=== PATIENT | female | born 1955 ===

== ENCOUNTER 2020-06-29 15:19 | Emergency (ER) | payer OTHER, SELFPAY ==
--- NOTE | ~2020-06-29 | XR_ITS ---
EXAMINATION: XR CHEST CLINICAL INFORMATION: Shortness of breath COMPARISON: None TECHNIQUE: 2 views of the chest were obtained. FINDINGS: The cardiomediastinal silhouette is normal. No abnormal tracheal deviation. The lungs are mildly hypoexpanded. The lungs are clear. No evidence of pneumothorax or pleural effusions. Surgical anchor is noted projecting over the right humeral head. No acute osseous abnormality. Changes of diffuse idiopathic skeletal hyperostosis in the spine. Visualized upper abdomen is unremarkable. XR/XR chest 2V IMPRESSION: No radiographic evidence of pneumonia. No acute pulmonary process.
--- NOTE | 2020-06-29 16:23 | ED_ITS ---
HPI - SOB/Dyspnea General Chief Complaint: Dyspnea Stated Complaint: SOB Time Seen by Provider: 06/29/20 16:23 Source: patient Mode of arrival: ambulatory Limitations: no limitations History of Present Illness HPI Narrative: shortness of breath for one month., NO sick contacts, no fever. patient denies seasonal allergies. There at times she has chest discomfort only when she goes to bed. High cholesterol, no doctor as she has not gotten a doctor. MD elicited complaint: shortness of breath Onset (ago): month(s) Related Data Allergies Allergy/AdvReac Type Severity Reaction Status Date / Time No Known Allergies Allergy Verified 06/29/20 16:52 Review of Systems Constitutional: Constitutional: Reports no additional constitutional complaints Eyes: Eyes: Reports no additional eye complaints ENT: Denies dizziness Cardiovascular: Cardiovascular: Reports no additional cardiovascular complaints Respiratory: Respiratory: Reports as per HPI Gastrointestinal: Gastrointestinal: Reports no additional gastrointestinal complaints Genitourinary: Genitourinary: Reports no additional female genitourinary complaints Musculoskeletal: Musculoskeletal: Reports no additional musculoskeletal complaints Integumentary/Breasts: Skin/Breast: Denies rash Neurologic: Reports system reviewed and no additional complaints, except as documented, Denies dizziness and Denies Sensory deficit (Neuro) Psychiatric: Psychiatric: Denies anxiety [facility] Past Medical History Medical History (Updated 06/29/20 @ 18:45 by Zafar Gongora MD) Arthritis Claudine's disease Social History Social History Advance Directives: No Advance Directives Information Provided: Yes Patient : No Physical Exam Vital Signs: Vital Signs: Last Vital Signs Temp 98.3 F 06/29/20 16:49 Pulse 80 06/29/20 16:49 Resp 16 06/29/20 16:49 BP 154/67 H 06/29/20 16:49 Pulse Ox 96 06/29/20 16:49 Body Mass Index 30.2 Const: General: healthy appearing Nutritional Appearance: average body habitus Orientation/consciousness: oriented to person and patient oriented x3 Limitations: no limitations HENMT: Head: Yes normal to inspection Ears: external ears normal General nose exam: Normal external nose present Mouth: Normal oral and palatal mucosa present and oropharynx normal Throat: Yes posterior oropharynx normal Eyes: General: appearance normal, both eyes and all related structures Neck: Other: supple Neck: Yes normal visual inspection Chest: Chest palpation & inspection: normal inspection of the chest Resp: Auscultation: clear to auscultation bilaterally Cardio: Jugular venous distension: no JVD Rate: regular rate Rhythm: regular rhythm Heart sounds: S1 normal heart sound present and S2 normal heart sound present GI: Inspection: Yes normal to inspection Palpation (GI): Soft to palpation, nontender and No hepatosplenomegaly present Auscultation: normal bowel sounds : General: Yes no CVA tenderness Back/Spine/Pelvis: Back: no CVA tenderness Skin: General skin exam: no rashes or lesions noted Neuro: General: oriented to person and patient oriented x3 Cranial nerves: Yes CN's II-XII intact bilaterally Motor exam (neuro): 5/5 motor strength present throughout Sensory Exam: No Sensory deficit (Neuro) Extrem: General: Yes normal to inspection Psych: Appearance: grossly normal Course Course Course Narrative: labs are normal except for WBC of 14, CXR shows now infiltrate, EKG normal. Will dc home. No evidence of PE, no leg swelling or calf pain, Vitals normal MDM - SOB/Dyspnea Lab Data Result diagrams: 06/29/20 17:16 06/29/20 17:16 Labs: Lab Results 06/29/20 06/29/20 06/29/20 Range/Units 17:16 17:16 17:16 WBC 14.1 H (4.8-10.8) X10*3/uL RBC 4.24 (4.20-5.50) X10*6/uL Hgb 12.5 (12.0-16.0) g/dl Hct 39.4 (37-47) % MCV 92.9 (80-98) fL MCH 29.5 (27.0-33.0) pg MCHC 31.7 (31.0-35.0) g/dl RDW 12.9 (11.0-16.0) % Plt Count 369 (160-400) X10*3/uL MPV 11.3 (9.4-12.3) fL Immature Gran % (Auto) 0.4 (0.0-0.4) % Neut % (Auto) 60.3 (45-73) % Lymph % (Auto) 31.3 (20-40) % [place] % (Auto) 5.8 (2-11) % Eos % (Auto) 1.5 (0-4) % Baso % (Auto) 0.7 (0-2) % Lymph # (Auto) 4.4 (1.2-4.9) X10*3/uL [place] # (Auto) 0.8 (0.1-1.2) X10*3/uL Eos # (Auto) 0.2 (0.0-0.4) X10*3/uL Baso # (Auto) 0.1 (0.0-0.2) X10*3/uL Abs Immat Gran (auto) 0.06 H (0.00-0.03) X10*3/uL Absolute Neuts (auto) 8.5 H (2.0-8.3) X10*3/uL Absolute Nucleated RBC 0.000 (0.0-0.012) X10*3/uL Nucleated RBC % (auto) 0.0 (0.0-0.2) /100WBC Sodium 138 (135-145) mmol/L Potassium 4.3 (3.3-5.1) mmol/L Chloride 102 (96-108) mmol/L Carbon Dioxide 30 H (22-29) mmol/L Anion Gap 10 L (12-20) BUN 17 H (9-16) mg/dL Creatinine 0.80 (0.5-1.4) mg/dL Estim Creat Clear Calc 71.0 Estimated GFR > 60 Random Glucose 92 (60-115) mg/dL Calcium 9.5 (8.4-10.2) mg/dL Troponin I High Sens < 3.5 (<3.5-17.0) ng/L Imaging Data Chest x-ray: Radiologist's impression: no infiltrate ECG Data Attestation: I personally reviewed and interpreted this ECG as follows: Interpretation: normal sinus rate 70, no st or twave changes Discharge Plan Discharge Clinical Impression: Shortness of breath Patient Disposition: Home, Self-Care Instructions: Shortness of Breath (ED) Referrals: Kadi Urena MD [Primary Care Provider] - 1 week
--- NOTE | 2020-06-29 16:30 | ECG_ITS ---
Test Reason : SOB Blood Pressure : / mmHG Vent. Rate : 070 BPM Atrial Rate : 070 BPM P-R Int : 144 ms QRS Dur : 088 ms QT Int : 418 ms P-R-T Axes : 066 -09 016 degrees QTc Int : 451 ms Normal sinus rhythm Minimal voltage criteria for LVH, may be normal variant Borderline ECG No previous ECGs available Referred By: Zafar Gongora Electronically Signed By:Ananda Myers
[2020-06-29 16:49] VITALS: BP 154/67; PULSE 80; RESP 16; TEMP 36.8; O2SAT 96; BMI 30.2
[2020-06-29 17:41] LABS: MANUAL DIFF FLAG NO
[2020-06-29 17:43] LABS: Basophils Absolute Auto 0.1 X10*3/uL (0.0-0.2); Basophils Percent Auto 0.7 % (0-2); Eosinophils Absolute Auto 0.2 X10*3/uL (0.0-0.4); Eosinophils Percent Auto 1.5 % (0-4); Hematocrit 39.4 % (37-47); Hemoglobin 12.5 g/dl (12.0-16.0); Imm Gran Abs Auto 0.06 X10*3/uL (0.00-0.03); Imm Gran Pct Auto 0.4 % (0.0-0.4); Lymphocytes Absolute Auto 4.4 X10*3/uL (1.2-4.9); Lymphocytes Percent Auto 31.3 % (20-40); Mean Corpuscular HGB Conc 31.7 g/dl (31.0-35.0); Mean Corpuscular Hemoglobin 29.5 pg (27.0-33.0); Mean Corpuscular Volume 92.9 fL (80-98); Mean Platelet Volume 11.3 fL (9.4-12.3); Monocytes Absolute Auto 0.8 X10*3/uL (0.1-1.2); Monocytes Percent Auto 5.8 % (2-11); Neutrophils Absolute Auto 8.5 X10*3/uL (2.0-8.3); Neutrophils Percent Auto 60.3 % (45-73); Platelet Count 369 X10*3/uL (160-400); Red Blood Count 4.24 X10*6/uL (4.20-5.50); Red Cell Distribution Width 12.9 % (11.0-16.0); White Blood Count 14.1 X10*3/uL (4.8-10.8)
[2020-06-29 18:05] LABS: Anion Gap 10 (12-20); Blood Urea Nitrogen 17 mg/dL (9-16); Calcium 9.5 mg/dL (8.4-10.2); Carbon Dioxide 30 mmol/L (22-29); Chloride 102 mmol/L (96-108); Estimated Glomerular Filt Rate > 60; Glucose Random 92 mg/dL (60-115); Potassium 4.3 mmol/L (3.3-5.1); Sodium 138 mmol/L (135-145)
[2020-06-29 18:12] LABS: Troponin-I High Sensitivity < 3.5 ng/L (<3.5-17.0)
== END 2020-06-29 19:30 | disposition home or self-care (01) ==
PROVIDERS: Emergency Provider Emergency Medicine; PCP Internal Medicine
DX: R06.00 Dyspnea, unspecified (principal); Z79.899 Other long term (current) drug therapy
CPT/HCPCS: 36415; 71046; 80048; 84484; 85025; 93005; 99283

== ENCOUNTER 2020-08-02 09:33 | Outpatient (REF) | payer OTHER, SELFPAY ==
[2020-08-02 09:57] LABS: MANUAL DIFF FLAG NO
[2020-08-02 10:05] LABS: Basophils Absolute Auto 0.1 X10*3/uL (0.0-0.2); Basophils Percent Auto 0.6 % (0-2); Eosinophils Absolute Auto 0.2 X10*3/uL (0.0-0.4); Eosinophils Percent Auto 1.2 % (0-4); Hemoglobin 12.1 g/dl (12.0-16.0); Imm Gran Abs Auto 0.04 X10*3/uL (0.00-0.03); Imm Gran Pct Auto 0.3 % (0.0-0.4); Lymphocytes Absolute Auto 3.7 X10*3/uL (1.2-4.9); Lymphocytes Percent Auto 29.2 % (20-40); Mean Corpuscular HGB Conc 31.8 g/dl (31.0-35.0); Mean Corpuscular Hemoglobin 29.4 pg (27.0-33.0); Mean Corpuscular Volume 92.2 fL (80-98); Mean Platelet Volume 11.2 fL (9.4-12.3); Monocytes Absolute Auto 0.8 X10*3/uL (0.1-1.2); Neutrophils Absolute Auto 7.8 X10*3/uL (2.0-8.3); Neutrophils Percent Auto 62.7 % (45-73); Platelet Count 355 X10*3/uL (160-400); Red Blood Count 4.12 X10*6/uL (4.20-5.50); Red Cell Distribution Width 12.8 % (11.0-16.0); White Blood Count 12.5 X10*3/uL (4.8-10.8)
[2020-08-02 10:27] LABS: Alanine Aminotransferase 21 U/L (0-31); Aspartate Amino Transferase 22 U/L (5-31); Cholesterol 247 mg/dL; HDL Cholesterol 33 mg/dL; Triglycerides 493 mg/dL
[2020-08-02 10:49] LABS: TSH reflex Free T4 1.08 uIU/mL (0.32-4.0); Vitamin D 25-OH Total 22.6 ng/mL (>30)
== END 2020-08-02 09:34 | disposition home or self-care (01) ==
LOC: HO.LAB 09:33
PROVIDERS: PCP Internal Medicine; Visit Provider Internal Medicine
DX: R06.02 Shortness of breath (principal); E78.5 Hyperlipidemia, unspecified
CPT/HCPCS: 36415; 80061; 82306; 84443; 84450; 84460; 85025

== ENCOUNTER 2020-09-14 14:00 | Outpatient (REF) | payer OTHER, SELFPAY ==
--- NOTE | ~2020-09-14 | XR_ITS ---
EXAMINATION: XR BILATERAL HIPS WITH AP PELVIS CLINICAL INFORMATION: Pain right hip. COMPARISON: None TECHNIQUE: AP view of the pelvis and single views of each hip were obtained. FINDINGS: There is mild loss of bilateral hip joint space without any bony erosive changes, loose bodies or spurs. No acute fracture or dislocation seen. XR/XR hips JUAN PABLO min 3V IMPRESSION: Mild loss of bilateral hip joint space without acute fracture or dislocation.
== END 2020-09-14 14:01 | disposition home or self-care (01) ==
LOC: HO.HMGCX 14:00
PROVIDERS: PCP Internal Medicine; Visit Provider Internal Medicine
DX: M25.551 Pain in right hip (principal); M25.552 Pain in left hip
CPT/HCPCS: 73522

== ENCOUNTER 2020-10-02 08:11 | Outpatient (REF) | payer OTHER, SELFPAY ==
--- NOTE | ~2020-10-02 | MM_ITS ---
EXAMINATION: MM SCREENING DIGITAL BREAST TOMOSYNTHESIS, BILATERAL CLINICAL INFORMATION: Screening. Asymptomatic. Prior outside mammography from [place] currently unavailable. Family history breast cancer, sister age 50 and paternal aunt age 70. The lifetime risk of breast cancer based on the Tyrer-Cuzick Model is 13%. COMPARISON: None. TECHNIQUE: Digital breast tomosynthesis is performed in both the craniocaudal and mediolateral oblique views along with computer-aided detection (CAD). Synthesized 2D images are generated from the tomosynthesis. Additional bilateral MLO view is provided. FINDINGS: There are scattered areas of fibroglandular density (ACR BI-RADS breast composition Category b). There are no significant masses, abnormal calcifications, or other abnormalities. The axilla and skin contours are unremarkable. MM/MM tomosynthesis screening BI IMPRESSION: No mammographic evidence of malignancy. ASSESSMENT: BI-RADS 1: Negative RECOMMENDATION: Routine annual mammography screening. This patient's information was entered into a reminder system with a target due date for their next mammogram.
== END 2020-10-02 08:12 | disposition home or self-care (01) ==
LOC: HO.MAMMO 08:11
PROVIDERS: PCP Internal Medicine; Visit Provider Internal Medicine
DX: Z12.31 Encounter for screening mammogram for malignant neoplasm of breast (principal)
CPT/HCPCS: 77063; 77067

== ENCOUNTER 2020-10-31 10:07 | Outpatient (REF) | payer OTHER, SELFPAY ==
[2020-10-31 15:41] LABS: CT PCR NOT DETECTED (Not Detect.); NG PCR NOT DETECTED (Not Detect.)
[2020-11-01 10:09] LABS: BV Int Neg Control Negative (Negative); BV Int Pos Control Positive (Positive)
[2020-11-19 11:07] LABS: HPV mRNA E6/E7 rflx Not Detected (Not Detected)
== END 2020-10-31 10:08 | disposition home or self-care (01) ==
LOC: HO.LAB 10:07
PROVIDERS: PCP Internal Medicine; Visit Provider Advanced Practice Midwife
DX: Z01.419 Encounter for gynecological examination (general) (routine) without abnormal findings (principal); R32 Unspecified urinary incontinence; Z20.2 Contact with and (suspected) exposure to infections with a predominantly sexual mode of transmission; Z79.899 Other long term (current) drug therapy
CPT/HCPCS: 87480; 87491; 87510; 87591; 87624; 87660; 88142

== ENCOUNTER 2020-11-14 13:50 | Outpatient (REF) | payer OTHER, SELFPAY | END 2020-11-14 13:51 | disposition home or self-care (01) | LOC: HO.LAB 13:50 | PROVIDERS: Visit Provider Advanced Practice Midwife | DX: Z13.89 Encounter for screening for other disorder (principal) ==

== ENCOUNTER 2020-11-29 09:28 | Outpatient (REF) | payer OTHER, SELFPAY ==
[2020-11-29 10:34] LABS: Alanine Aminotransferase 18 U/L (0-31); Aspartate Amino Transferase 23 U/L (5-31); Cholesterol 215 mg/dL; HDL Cholesterol 37 mg/dL; LDL Cholesterol Calculated 144 mg/dl; Triglycerides 174 mg/dL
[2020-11-29 10:55] LABS: Vitamin D 25-OH Total 44.7 ng/mL (>30)
[2020-11-30 06:01] LABS: LDL Cholesterol Direct 157 mg/dL (<100)
== END 2020-11-29 09:29 | disposition home or self-care (01) ==
LOC: HO.LAB 09:28
PROVIDERS: Absent Provider Advanced Practice Midwife; PCP Internal Medicine; Visit Provider Internal Medicine
DX: Z12.4 Encounter for screening for malignant neoplasm of cervix (principal); E78.2 Mixed hyperlipidemia; E55.9 Vitamin D deficiency, unspecified
CPT/HCPCS: 36415; 80061; 82306; 82550; 83721; 84450; 84460

== ENCOUNTER 2021-03-29 09:26 | Outpatient (REF) | payer OTHER, SELFPAY ==
[2021-03-29 10:16] LABS: Alanine Aminotransferase 14 U/L (0-31); Aspartate Amino Transferase 16 U/L (5-31); Cholesterol 135 mg/dL; HDL Cholesterol 33 mg/dL; LDL Cholesterol Calculated 74 mg/dl; Triglycerides 140 mg/dL
== END 2021-03-29 09:27 | disposition home or self-care (01) ==
LOC: HO.LAB 09:26
PROVIDERS: PCP Internal Medicine; Visit Provider Internal Medicine
DX: E78.2 Mixed hyperlipidemia (principal)
CPT/HCPCS: 36415; 80061; 82550; 84450; 84460

== ENCOUNTER 2021-04-29 10:50 | Outpatient (REF) | payer OTHER, SELFPAY ==
[2021-04-29 13:56] LABS: Alanine Aminotransferase 14 U/L (0-31); Aspartate Amino Transferase 17 U/L (5-31); Blood Urea Nitrogen 16 mg/dL (9-16); Estimated Glomerular Filt Rate > 60
== END 2021-04-29 10:51 | disposition home or self-care (01) ==
LOC: HO.LAB 10:50
PROVIDERS: PCP Internal Medicine; Visit Provider Surgery Vascular Surgery
DX: I83.11 Varicose veins of right lower extremity with inflammation (principal); R22.41 Localized swelling, mass and lump, right lower limb; E78.2 Mixed hyperlipidemia; R10.32 Left lower quadrant pain
CPT/HCPCS: 36415; 82565; 84450; 84460; 84520; 99202

== ENCOUNTER 2021-05-07 12:59 | Outpatient (REF) | payer OTHER, SELFPAY ==
--- NOTE | ~2021-05-07 | US_ITS ---
EXAMINATION: US LOWER EXTREMITY VENOUS ULTRASOUND (Reflux Exam), BILATERAL CLINICAL INFORMATION: Bilateral lower extremity varicose veins. COMPARISON: None TECHNIQUE: Color flow triplex imaging and compression Doppler was performed to evaluate both the deep and the superficial systems bilaterally. To evaluate the superficial system, the examination was performed in the upright position. Color-flow Doppler ultrasound and compression ultrasound were utilized. In addition, maneuvers were utilized to demonstrate reflux. FINDINGS: SUPERFICIAL ULTRASOUND WITH DOPPLER OF RIGHT LOWER EXTREMITY: GREAT SAPHENOUS VEIN: Saphenofemoral Junction: 0.6 cm. Min Diameter: 0.1 cm. Reflux: No evidence of reflux. DUPLICATED MEDIAL GREAT SAPHENOUS VEIN: Max Diameter: None Imaged. Reflux: NA. DUPLICATED LATERAL GREAT SAPHENOUS VEIN: Diameter: 0.3 cm at the junction. Reflux: None. SMALL SAPHENOUS VEIN: Proximal Calf: 0.2 cm. Distal Calf: 0.1 cm. Reflux: No evidence of reflux. VEIN OF GIACOMINI: None Imaged. PERFORATORS: Location: Maximal calf measuring 0.2 cm. Reflux: None. VARICOSITIES: Location: None Imaged. Reflux: NA. DEEP VENOUS ULTRASOUND OF THE RIGHT LOWER EXTREMITY: Common Femoral Vein: Compressible, normal respiratory variation and augmented flow. Femoral Vein: Compressible, normal color flow and augmentation. Popliteal Vein: Compressible, normal augmentation. Deep Reflux: There is no evidence of reflux in the deep system in either the common femoral vein or the popliteal vein. Price's Cyst: There is no evidence of a Price's cyst. SUPERFICIAL ULTRASOUND WITH DOPPLER OF LEFT LOWER EXTREMITY GREAT SAPHENOUS VEIN: Saphenofemoral Junction: 0.7 cm. Min Diameter: 0.1 cm. Reflux: No evidence of reflux. DUPLICATED MEDIAL GREAT SAPHENOUS VEIN: Max Diameter: 0.2 cm at the junction. Reflux: None. DUPLICATED LATERAL GREAT SAPHENOUS VEIN: Diameter: None Imaged. Reflux: NA. SMALL SAPHENOUS VEIN: Proximal Calf: 0.2 cm. Distal Calf: 0.2 cm. Reflux: No evidence of reflux. VEIN OF GIACOMINI: None Imaged. PERFORATORS: Location: Mid thigh and distal calf each measuring 1 mm. Reflux: None. VARICOSITIES: Location: Proximal thigh and mid calf measuring between 2 and 4 mm. Reflux: The mid calf varicosity demonstrates greater than 0.8 seconds of reflux. DEEP VENOUS ULTRASOUND OF THE LEFT LOWER EXTREMITY: Common Femoral Vein: Compressible, normal respiratory variation and augmented flow. Femoral Vein: Compressible, normal color flow and augmentation. Popliteal Vein: Compressible, normal augmentation. Deep Reflux: There is no evidence of reflux in the deep system in either the common femoral vein or the popliteal vein. Price's Cyst: There is no evidence of a Price's cyst. US/US venous duplex LE BI IMPRESSION: 1. No evidence of great saphenous venous insufficiency involving either lower extremity. 2. No evidence of small saphenous venous insufficiency involving either lower extremity. 3. Small left lower extremity varicosities. 4. No evidence of DVT or deep venous insufficiency.
== END 2021-05-07 13:00 | disposition home or self-care (01) ==
LOC: HO.US 12:59
PROVIDERS: Visit Provider Surgery Vascular Surgery
DX: I83.11 Varicose veins of right lower extremity with inflammation (principal)
CPT/HCPCS: 93970

== ENCOUNTER 2021-05-08 09:37 | Outpatient (REF) | payer OTHER, SELFPAY ==
--- NOTE | ~2021-05-08 | CT_ITS ---
EXAMINATION: CT ABDOMEN AND PELVIS WITH CONTRAST CLINICAL INFORMATION: Left lower quadrant pain COMPARISON: None TECHNIQUE: Multidetector volumetric images were obtained from the superior aspect of the liver through the pubic symphysis following administration 85 mL of Omnipaque 350 intravenous contrast. Sagittal and coronal reformatted images were obtained on the technologist's workstation. Oral contrast: Yes This CT examination was performed using dose optimization techniques as appropriate, variously including the following: *Automated exposure control *Adjustment of mA and/or kV according to patient size (this includes techniques or standardized protocols for targeted exams where dose is matched to indication/reason for exam; i.e. extremities or head) *Use of iterative reconstruction technique DLP: 371 mGy-cm FINDINGS: LUNG BASES: The visualized lung bases are unremarkable. LIVER, GALLBLADDER, AND BILIARY TREE: The liver is normal in size, shape, and attenuation. No focal hepatic lesion or biliary ductal dilatation is present. The gallbladder is unremarkable with no evidence of radiopaque gallstones, gallbladder wall thickening, or obvious pericholecystic inflammatory changes. PANCREAS: Unremarkable. SPLEEN: Unremarkable. ADRENAL GLANDS: Unremarkable. KIDNEYS AND URETERS: The kidneys are normal in size, shape, and attenuation. No hydronephrosis, hydroureter, or calculi seen. No perinephric stranding. BLADDER: Unremarkable. GASTROINTESTINAL TRACT: The small and large bowel are unremarkable. Unremarkable. The appendix is seen.. The stomach is unremarkable. ABDOMINAL WALL: No significant hernia is appreciated. LYMPH NODES: Normal. VASCULAR: There is atherosclerotic disease. No aneurysm is seen. PELVIC VISCERA: There is a fluid or thickening of the endometrial cavity measuring 8 mm. This is increased in a postmenopausal patient. Uterus and adnexa are otherwise unremarkable OSSEOUS STRUCTURES: There are degenerative changes of the spine. CT/CT abdomen pelvis w con IMPRESSION: Prominent endometrium for a postmenopausal patient. Follow-up pelvic ultrasound recommended, particularly if there is history of vaginal bleeding. Otherwise unremarkable exam. Fleischner guidelines were followed.
[2021-05-08] MEDS: iohexoL 350 MG/ML 100 ML INFUS..BTL IV (13:26)
[2021-05-08] MEDS: Barium Sulfate Oral (Berry) 450 ML ORAL.SUSP 900 ML PO (13:27)
== END 2021-05-08 09:38 | disposition home or self-care (01) ==
LOC: HO.CT 09:37
PROVIDERS: Visit Provider Internal Medicine
DX: R10.32 Left lower quadrant pain (principal); K57.92 Diverticulitis of intestine, part unspecified, without perforation or abscess without bleeding
CPT/HCPCS: 74177; Q9967

== ENCOUNTER → 2021-06-27 13:32 | Outpatient (BNVA) | payer OTHER, SELFPAY | PROVIDERS: PCP Internal Medicine; Visit Provider Surgery Vascular Surgery | DX: I83.11 Varicose veins of right lower extremity with inflammation (principal) | CPT/HCPCS: 99212 ==

== ENCOUNTER 2021-10-24 10:39 | Outpatient (REF) | payer OTHER, SELFPAY ==
[2021-10-24 12:37] LABS: Alanine Aminotransferase 18 U/L (0-31); Anion Gap 13 (12-20); Aspartate Amino Transferase 20 U/L (5-31); Blood Urea Nitrogen 17 mg/dL (9-16); Calcium 9.7 mg/dL (8.4-10.2); Carbon Dioxide 28 mmol/L (22-29); Chloride 104 mmol/L (96-108); Cholesterol 228 mg/dL; Estimated Glomerular Filt Rate > 60; Glucose Fasting 99 mg/dL (60-99); HDL Cholesterol 38 mg/dL; LDL Cholesterol Calculated 149 mg/dl; Potassium 4.9 mmol/L (3.3-5.1); Sodium 140 mmol/L (135-145); Triglycerides 209 mg/dL
[2021-10-24 12:45] LABS: Vitamin D 25-OH Total 43.7 ng/mL (>30)
== END 2021-10-24 10:40 | disposition home or self-care (01) ==
LOC: HO.LAB 10:39
PROVIDERS: PCP Internal Medicine; Visit Provider Internal Medicine
DX: E06.3 Autoimmune thyroiditis (principal); E78.5 Hyperlipidemia, unspecified; Z78.0 Asymptomatic menopausal state
CPT/HCPCS: 36415; 80048; 80061; 82306; 82550; 84450; 84460

== ENCOUNTER 2021-10-28 16:35 | Outpatient (REF) | payer OTHER, SELFPAY ==
[2021-10-28 16:54] LABS: Appearance Urine Clear; Color Urine Yellow; Glucose Urine UA Negative (Negative); Leukocyte Esterase Urine Negative (Negative); Nitrite Urine Negative (Negative); PH 7.5 (5.0-9.0); Urine Blood Negative (Negative); Urine Ketones Negative (Negative); Urine Protein Negative (Neg-Trace)
== END 2021-10-28 16:36 | disposition home or self-care (01) ==
LOC: HO.LNP 16:35
PROVIDERS: Visit Provider Internal Medicine
DX: R10.9 Unspecified abdominal pain (principal)
CPT/HCPCS: 81003

== ENCOUNTER 2021-12-06 12:01 | Outpatient (REF) | payer OTHER, SELFPAY ==
--- NOTE | ~2021-12-06 | US_ITS ---
EXAMINATION: US RETROPERITONEAL LIMITED (RENAL ONLY) CLINICAL INFORMATION: Unspecified abdominal pain. COMPARISON: CT abdomen and pelvis 05/08/2021. TECHNIQUE: Real-time imaging of the kidneys. FINDINGS: RIGHT KIDNEY: 10.5 x 5.3 x 4.9 cm (SAG x AP x TRV). The kidney is normal in size, contour, and echogenicity. Renal cortical thickness is normal. No calculi or focal parenchymal lesions. No hydronephrosis. LEFT KIDNEY: 11.2 x 5.6 x 4.7 cm (SAG x AP x TRV). The kidney is normal in size, contour, and echogenicity. Renal cortical thickness is normal. No calculi or focal parenchymal lesions. No hydronephrosis. There may be a left extrarenal pelvis. US/US renal BI IMPRESSION: Unremarkable exam.
== END 2021-12-06 12:02 | disposition home or self-care (01) ==
LOC: HO.US 12:01
PROVIDERS: Visit Provider Internal Medicine
DX: R10.9 Unspecified abdominal pain (principal)
CPT/HCPCS: 76775

== ENCOUNTER 2021-12-09 11:43 | Outpatient (REF) | payer OTHER, SELFPAY ==
[2021-12-10 05:27] LABS: CT PCR NOT DETECTED (Not Detect.); NG PCR NOT DETECTED (Not Detect.)
[2021-12-10 12:23] LABS: BV Int Neg Control Negative (Negative); BV Int Pos Control Positive (Positive)
== END 2021-12-09 11:44 | disposition home or self-care (01) ==
LOC: HO.LNP 11:43
PROVIDERS: Visit Provider Advanced Practice Midwife
DX: Z01.419 Encounter for gynecological examination (general) (routine) without abnormal findings (principal); R32 Unspecified urinary incontinence; Z11.3 Encounter for screening for infections with a predominantly sexual mode of transmission; Z11.8 Encounter for screening for other infectious and parasitic diseases; E66.9 Obesity, unspecified; M62.89 Other specified disorders of muscle; R93.89 Abnormal findings on diagnostic imaging of other specified body structures; N64.4 Mastodynia; Z80.3 Family history of malignant neoplasm of breast
CPT/HCPCS: 87480; 87491; 87510; 87591; 87660

== ENCOUNTER 2021-12-20 14:22 | Outpatient (REF) | payer OTHER, SELFPAY ==
--- NOTE | ~2021-12-20 | US_ITS ---
EXAMINATION: MM DIAGNOSTIC DIGITAL BREAST TOMOSYNTHESIS, BILATERAL US DIAGNOSTIC ULTRASOUND BREAST, BILATERAL CLINICAL INFORMATION: Bilateral breast pain/mastodynia. No discharge or erythema. Family history breast cancer, sister. COMPARISON: Mammography: 10/02/2020 TECHNIQUE: Digital breast tomosynthesis is performed in both the craniocaudal and mediolateral oblique views along with computer-aided detection (CAD). Synthesized 2D images are generated from the tomosynthesis. Ultrasound of both breasts is targeted to the areas of clinical concern outer left breast and lower outer right breast, respectively. Grayscale imaging and color Doppler are performed without and with harmonics. FINDINGS: There are scattered areas of fibroglandular density (ACR BI-RADS breast composition Category b). There are no significant masses, abnormal calcifications, or other abnormalities. Parenchymal pattern is similar to prior exam. There is no developing density or architectural abnormality. The axilla and skin contours are unremarkable. No skin thickening or coarsening of the Endy's ligaments. No significant changes. Ultrasound bilateral breasts demonstrate no cystic or solid mass, architectural abnormality, or focal duct ectasia. No skin thickening or edema tracking in soft tissue planes. No hyperemia. Results are discussed with the patient at time of visit, using an cold work operator. US/US breast LT limited IMPRESSION: -No mammographic evidence of malignancy or inflammatory changes. -Unremarkable bilateral targeted breast ultrasound. ASSESSMENT: BI-RADS 1: Negative RECOMMENDATION: 1. Patient's bilateral mastodynia should be managed based on the clinical impression. 2. Otherwise, routine annual screening mammography. This patient's information was entered into a reminder system with a target due date for their next mammogram.
--- NOTE | ~2021-12-20 | US_ITS ---
EXAMINATION: MM DIAGNOSTIC DIGITAL BREAST TOMOSYNTHESIS, BILATERAL US DIAGNOSTIC ULTRASOUND BREAST, BILATERAL CLINICAL INFORMATION: Bilateral breast pain/mastodynia. No discharge or erythema. Family history breast cancer, sister. COMPARISON: Mammography: 10/02/2020 TECHNIQUE: Digital breast tomosynthesis is performed in both the craniocaudal and mediolateral oblique views along with computer-aided detection (CAD). Synthesized 2D images are generated from the tomosynthesis. Ultrasound of both breasts is targeted to the areas of clinical concern outer left breast and lower outer right breast, respectively. Grayscale imaging and color Doppler are performed without and with harmonics. FINDINGS: There are scattered areas of fibroglandular density (ACR BI-RADS breast composition Category b). There are no significant masses, abnormal calcifications, or other abnormalities. Parenchymal pattern is similar to prior exam. There is no developing density or architectural abnormality. The axilla and skin contours are unremarkable. No skin thickening or coarsening of the Endy's ligaments. No significant changes. Ultrasound bilateral breasts demonstrate no cystic or solid mass, architectural abnormality, or focal duct ectasia. No skin thickening or edema tracking in soft tissue planes. No hyperemia. Results are discussed with the patient at time of visit, using an diplomatic interpreter/translator. US/US breast RT limited IMPRESSION: -No mammographic evidence of malignancy or inflammatory changes. -Unremarkable bilateral targeted breast ultrasound. ASSESSMENT: BI-RADS 1: Negative RECOMMENDATION: 1. Patient's bilateral mastodynia should be managed based on the clinical impression. 2. Otherwise, routine annual screening mammography. This patient's information was entered into a reminder system with a target due date for their next mammogram.
== END 2021-12-20 14:23 | disposition home or self-care (01) ==
LOC: HO.MAMMO 14:22
PROVIDERS: PCP Internal Medicine; Visit Provider Advanced Practice Midwife
DX: N64.4 Mastodynia (principal); Z80.3 Family history of malignant neoplasm of breast
CPT/HCPCS: 76642; 77062; 77066

== ENCOUNTER 2021-12-27 14:07 | Outpatient (REF) | payer OTHER, SELFPAY ==
--- NOTE | ~2021-12-27 | US_ITS ---
EXAMINATION: US PELVIS CLINICAL INFORMATION: Follow-up thickened endometrium on abdominal and pelvic CT scan COMPARISON: Abdominal and pelvic CT scan April 2021 TECHNIQUE: Ultrasound of the pelvis is performed using both transabdominal and transvaginal transducers along with Doppler. Transvaginal imaging is performed due to inadequate visualization transabdominally. Transabdominal exam is very limited. FINDINGS: Uterus is anteverted and measures 7 x 3 x 4 cm in dimension. The endometrium is abnormally thickened for a postmenopausal patient measuring 1.2 cm. The endometrium is heterogeneous appearing with cystic areas. There is fluid in the endocervical canal. There is a small hypoechoic lesion or cyst in the posterior uterine body measuring 5 x 3 x 5 mm. The ovaries are normal-appearing. The right ovary measures 1 x 0.7 x 0.9 cm. The left ovary measures 3 x 0.9 x 1.1 cm. There is no fluid in the pelvis. US/US pelvic and transvaginal IMPRESSION: Abnormally thickened heterogeneous-appearing endometrium with small cystic areas and fluid in the endocervical canal. 2 sampling recommended.
== END 2021-12-27 14:08 | disposition home or self-care (01) ==
LOC: HO.US 14:07
PROVIDERS: Visit Provider Advanced Practice Midwife
DX: Z01.419 Encounter for gynecological examination (general) (routine) without abnormal findings (principal); R93.89 Abnormal findings on diagnostic imaging of other specified body structures; R32 Unspecified urinary incontinence; E66.9 Obesity, unspecified; Z80.3 Family history of malignant neoplasm of breast
CPT/HCPCS: 76830; 76856

== ENCOUNTER → 2022-03-31 09:53 | Outpatient (BNVA) | payer OTHER, MEDICAID, SELFPAY | PROVIDERS: PCP Hospitalist; Visit Provider Urology | DX: Z13.9 Encounter for screening, unspecified (principal); N81.89 Other female genital prolapse; N39.3 Stress incontinence (female) (male) | CPT/HCPCS: 51701; 51798 ==

== ENCOUNTER → 2022-05-06 13:41 | Outpatient (BNVA) | payer OTHER, MEDICAID, SELFPAY | PROVIDERS: Visit Provider Obstetrics & Gynecology | DX: Z13.89 Encounter for screening for other disorder (principal) ==

== ENCOUNTER 2022-05-07 11:00 | Outpatient (RCR) | payer OTHER, MEDICAID, SELFPAY | END 2022-06-20 14:38 | disposition home or self-care (01) | LOC: HO.PT 11:00 | PROVIDERS: PCP Hospitalist; Visit Provider Advanced Practice Midwife | DX: R32 Unspecified urinary incontinence (principal) | CPT/HCPCS: 97110; 97112; 97140; 97162 ==

== ENCOUNTER 2022-05-09 06:58 | Day surgery (SDC) | payer MEDICARE, MEDICAID, SELFPAY ==
--- NOTE | 2022-05-08 11:59 | HO.ANESPROP2 ---
HPI - Anesthesia Eval Consult details Narrative: 67yo F for D&C Hysteroscopy,poss myomectomy,polypectomy,endocervical curettage PMF Active Problems Active Problems: All Active Problems (Updated 05/06/22 @ 14:12 by Vinnie Wu MD) Abnormal ultrasound of endometrium (Acute) MYRNA (stress urinary incontinence, female) (Acute) Pelvic floor weakness (Acute) Urinary urgency (Acute) Mastalgia in female (Acute) Thickened endometrium (Acute) Obesity (BMI 30.0-34.9) (Acute) Left flank pain (Acute) Mass of right lower leg (Acute) Varicose veins of right lower extremity with inflammation (Acute) Left lower quadrant abdominal pain (Acute) Alopecia (Acute) Varicose veins of lower extremities with inflammation (Acute) Multinodular goiter (nontoxic) (Acute) Claudine's disease (Acute) Screening for malignant neoplasm of cervix (Acute) Urinary incontinence (Acute) Women's annual routine gynecological examination (Acute) Heartburn (Acute) Family history of breast cancer in sister (Acute) Breast cancer screening, high risk patient (Acute) Vitamin D deficiency (Acute) Menopause (Acute) Hip pain, bilateral (Acute) Metacarpophalangeal joint pain of right hand (Acute) Shortness of breath on exertion (Acute) Dyslipidemia (high LDL; low HDL) (Acute) Past Medical History Medical History (Updated 05/09/22 @ 07:28 by Christi Maciel, RN) Alopecia Arthritis Breast cancer screening, high risk patient Dyslipidemia (high LDL; low HDL) Family history of breast cancer in sister GERD (gastroesophageal reflux disease) Claudine's disease Heartburn Hip pain, bilateral Left flank pain Left lower quadrant abdominal pain Menopause Metacarpophalangeal joint pain of right hand Mixed dyslipidemia Multinodular goiter (nontoxic) Obesity (BMI 30.0-34.9) Shortness of breath on exertion Thickened endometrium Varicose veins of lower extremities with inflammation Vitamin D deficiency Family History Family History Paternal Aunt Breast cancer Sister Breast cancer Surgical History Surgical History History of ear surgery Hx of cataract surgery Hx of section Hx of shoulder surgery Social History Social History Housing: Apartment Alcohol intake: never Patient Tobacco Use Status: Never used Tobacco e-Cigarette/Vaping Use: Never Used Use of substances other than those prescribed or required for medical reasons: No Are you DNR?: No Advance Directives: No Advance Directives Information Provided: Yes Current occupational status: retired Cognitive needs: No Hearing needs: No Vision needs: Yes Meds Allergies Allergy/AdvReac Type Severity Reaction Status Date / Time No Known Allergies Allergy Verified 05/09/22 07:28 Home Medications Medication Instructions Recorded Confirmed Last Taken Type cholecalciferol (vitamin D3) 125 125 mcg PO DAILY 05/09/22 05/09/22 Unknown History mcg (5,000 unit) tablet (Vitamin D3) Exam Exam Date and Time: May 08, 2022 1159 Pertinent Lab Results Pertinent Lab Results: Laboratory Tests 08/02/20 10/24/21 09:40 11:06 WBC 12.5 H Hgb 12.1 Hct 38.0 Plt Count 355 Sodium 140 Potassium 4.9 Chloride 104 Carbon Dioxide 28 BUN 17 H Creatinine 0.75 Assessment and Plan Assessment Anesthesia Assessment: Chart Reviewed
[2022-05-09] VITALS (7 sets, daily range): BP systolic 156–177; BP diastolic 71–89; PULSE 67–79; RESP 15–18; TEMP 36.3–36.7; O2SAT 96–99; BMI 29.5
--- NOTE | 2022-05-09 08:01 | HO.ANESPROP2 ---
[facility] Active Problems Active Problems: All Active Problems Women's annual routine gynecological examination (Acute) Urinary incontinence (Acute) Screening for malignant neoplasm of cervix (Acute) Varicose veins of right lower extremity with inflammation (Acute) Mass of right lower leg (Acute) Mastalgia in female (Acute) Urinary urgency (Acute) Pelvic floor weakness (Acute) MYRNA (stress urinary incontinence, female) (Acute) Abnormal ultrasound of endometrium (Acute) Thickened endometrium (Acute) Obesity (BMI 30.0-34.9) (Acute) Left flank pain (Acute) Left lower quadrant abdominal pain (Acute) Alopecia (Acute) Varicose veins of lower extremities with inflammation (Acute) Multinodular goiter (nontoxic) (Acute) Claudine's disease (Acute) Heartburn (Acute) Family history of breast cancer in sister (Acute) Breast cancer screening, high risk patient (Acute) Vitamin D deficiency (Acute) Menopause (Acute) Hip pain, bilateral (Acute) Metacarpophalangeal joint pain of right hand (Acute) Shortness of breath on exertion (Acute) Dyslipidemia (high LDL; low HDL) (Acute) Past Medical History Medical History (Updated 05/09/22 @ 07:28 by Christi Maciel, RN) Alopecia Arthritis Breast cancer screening, high risk patient Dyslipidemia (high LDL; low HDL) Family history of breast cancer in sister GERD (gastroesophageal reflux disease) Claudine's disease Heartburn Hip pain, bilateral Left flank pain Left lower quadrant abdominal pain Menopause Metacarpophalangeal joint pain of right hand Mixed dyslipidemia Multinodular goiter (nontoxic) Obesity (BMI 30.0-34.9) Shortness of breath on exertion Thickened endometrium Varicose veins of lower extremities with inflammation Vitamin D deficiency Family History Family History Paternal Aunt Breast cancer Sister Breast cancer Family history of problems with anesthesia: No Surgical History Surgical History History of ear surgery Hx of cataract surgery Hx of section Hx of shoulder surgery History of Problems with Anesthesia: No Social History Social History Housing: Apartment Alcohol intake: never Patient Tobacco Use Status: Never used Tobacco e-Cigarette/Vaping Use: Never Used Use of substances other than those prescribed or required for medical reasons: No Are you DNR?: No Advance Directives: No Advance Directives Information Provided: Yes Current occupational status: retired Cognitive needs: No Hearing needs: No Vision needs: Yes Meds Allergies Allergy/AdvReac Type Severity Reaction Status Date / Time No Known Allergies Allergy Verified 05/09/22 07:28 Active Medications: Current Medications Lactated Ringer's (Lr) 1,000 mls @ 100 mls/hr IVCONT .Q10H [facility] Home Medications Medication Instructions Recorded Confirmed Last Taken Type cholecalciferol (vitamin D3) 125 125 mcg PO DAILY 05/09/22 05/09/22 Unknown History mcg (5,000 unit) tablet (Vitamin D3) Exam Exam Date and Time: May 09, 2022 0801 Height,Weight and Vital Signs: Height 5 ft 3 in Weight 75.75 kg Airway Mallampati Class: II TM Dist: >3cm Neck ROM: Full Assessment and Plan Assessment Anesthesia Assessment: Anesthesia Plan Discussed and Chart Reviewed Final Anesthetic Review Family History of Problems with Anesthesia: No History of Problems with Anesthesia: No NPO: Yes ASA Class: II Final Preanesthetic Review: No Changes in Pt Med Stat, Meds/Allgs Chart Reviewed, Consent Obtained/Reviewed and Anes Risks/Benef Reviewed Patient Risk: Low Procedure Risk: Low Anesthetic Plan Anesthetic Plan: GA Disposition: Standard PACU
[2022-05-09] MEDS: Lactated Ringers 1,000 ML 100 ML IVCONT (08:08)
--- NOTE | 2022-05-09 09:10 | MHC.SHP ---
Pre-Procedural Eval Section A Date of Service: 05/09/22 The patient is an INPATIENT: No Changes since office visit: No Cold of Flu in the past 2 weeks, No New Medical Problems, No Changes in Medication and No Patient answered all questions The History & Physical has been completed within 30 days and I have reviewed it.: Yes Section B Chief Complaint: Abnormal findings on diagnostic imaging of other Allergies: Allergies Allergy/AdvReac Type Severity Reaction Status Date / Time No Known Allergies Allergy Verified 05/09/22 07:28 Plan Diagnosis/Plan: Unchanged I have reviewed the history and physical and performed a pertinent physical examination on my patient. No changes have occurred unless specified. Time Spent With Patient Time: Total time managing care of this patient today ____ minutes.
--- NOTE | 2022-05-09 09:43 | PM.OP ---
Brief Operative Note Date of Service: 05/09/22 Pre-op diagnosis: Thickened heterogenous cystic endometrium with fluid in the endocervical canal by ultrasound Post-op diagnosis: same (Fundal 1 cm endometrial polyp, normal endocervical canal) Procedure: Hysteroscopy D&C, Polypectomy Surgeon: Vinnie Wu MD Anesthesia: GLMA Was an Sales Forecast Analyst used for this Procedure?: No Estimated blood loss (mL): 0 Pathology: other (Endometrial Scrapping. Endocervical curettage. Endometrial Polyp) Condition: stable Disposition: PACU
--- NOTE | 2022-05-09 09:44 | W.PM.OPN ---
Operative Note Operative Note Date of Service: 05/09/22 Narrative: Preop Diagnosis: Thickened heterogenous cystic endometrium with fluid in the endocervical canal by ultrasound Operation: Diagnostic Hysteroscopy, Dilataion & Curettage and polypectomy/ECC Post Op Diagnosis: Fundal Endometrial Polyp QBL: Minimal Anesthesia: GLMA Surgeon: Vinnie Wu MD Campus Recruiter: None Complication: None Pathology: Endometrial Scrapings, Endometrial polyp Procedure: The patient was put in the dorsal lithotomy position, scrubbed, and draped in the usual manner. A sterile speculum was inserted in the patient's vagina. The anterior lip of the cervix was grasped with a single tooth tenaculum. The cervix was dilated up to 5 mm, then the scope was inserted in the patient's uterus. Inspection revealed fundal 1 cm endometrial polyp. The Myosure Reach device was used; it was introduced through the operative channel and polypectomy done with no complications. The scope was then taken out from the uterine cavity, sharp curettings was carried on with minimal to moderate amount of tissues retrieved. At the end of the procedure, all instruments were taken out of the patient uterine and vaginal cavity. The single tooth tenaculum was removed and homeostasis was assured using pressure,. The patient tolerated the procedure well and was transferred to the PACU in a stable condition.
[2022-05-09] MEDS: Acetaminophen 325 MG TABLET 650 MG PO (10:25)
== END 2022-05-09 11:01 | disposition home or self-care (01) ==
PROVIDERS: PCP Hospitalist; Visit Provider Obstetrics & Gynecology
PROC: 0UDB8ZZ Extraction of Endometrium, Via Natural or Artificial Opening Endoscopic (ICD-10-PCS; CPT 58558; principal; 2022-05-09 09:20)
DX: N84.0 Polyp of corpus uteri (principal); L65.9 Nonscarring hair loss, unspecified; E78.5 Hyperlipidemia, unspecified; E06.3 Autoimmune thyroiditis; Z79.899 Other long term (current) drug therapy
CPT/HCPCS: 58558; 88305; J1100; J1885; J2250; J2405; J3010

== ENCOUNTER → 2022-05-28 10:50 | Outpatient (BNVA) | payer MEDICARE, MEDICAID, SELFPAY | PROVIDERS: PCP Internal Medicine; Visit Provider Obstetrics & Gynecology | DX: R93.89 Abnormal findings on diagnostic imaging of other specified body structures (principal) | CPT/HCPCS: 99212 ==

== ENCOUNTER 2022-10-14 12:47 | Outpatient (AMB) | payer MEDICARE, SELFPAY ==
[2022-10-14 12:53] VITALS: BP 132/80; BMI 30.3
--- NOTE | 2022-10-14 12:53 | A.OFFPC_ITS ---
Vital Signs 10/14/22 12:53 Height 5 ft 3 in Weight 171 lb BMI 30.3 BP 132/80 Blood Pressure Location Lt brachial Position Sitting Intake Visit Reasons: Transfer of care from Dr. Urena Intake Note: Patient here transferring of care from Dr Urena Contemporary Or Modern Dancer Required: No Accompanied by: Self / Same As Patient Allergies No Known Allergies Allergy (Verified 10/14/22 13:14) Medication List - Last Reconciled 10/14/22 by Heather Hernandez MD cholecalciferol (vitamin D3) (Vitamin D3) 125 mcg PO DAILY diclofenac sodium 75 mg PO BID famotidine 40 mg PO DAILY oxiconazole 1% 1 appl topical BID PRN oxybutynin chloride ER 5 mg PO DAILY rosuvastatin 10 mg PO DAILY Tobacco use date assessed: 10/14/22 Fall risk assessment: 1 Fall in past year Last assessed Fall Risk: 10/14/22 Dental Screening Dental Screen Date: 10/14/22 Did you have a dental visit in the last 12 months?: Yes Did you have a dental problem in the last 6 months where you did not have access to dental care?: No Was dental information given to patient?: Patient has dentist HPI HPI Comments History of Present Illness Details This is a 67-year-old female with GERD, dyslipidemia, stress urinary incontinence and vitamin-D deficiency that comes today to establish care. GERD stable with medications. Lipid panel will be order. Still has stress urinary incontinence and would like to see urology again. On vitamin-D supplements for her low vitamin-D. Denies any chest pain or shortness of breath. Complains of diffuse joint pain. [facility] Medical History (Updated 10/14/22 @ 14:17 by Heather Hernandez MD) Alopecia Arthritis Breast cancer screening, high risk patient Dyslipidemia (high LDL; low HDL) Family history of breast cancer in sister GERD (gastroesophageal reflux disease) Claudine's disease Heartburn Hip pain, bilateral Left flank pain Left lower quadrant abdominal pain Menopause Metacarpophalangeal joint pain of right hand Mixed dyslipidemia Multinodular goiter (nontoxic) Obesity (BMI 30.0-34.9) Shortness of breath on exertion Thickened endometrium Varicose veins of lower extremities with inflammation Vitamin D deficiency Surgical History History of ear surgery Hx of cataract surgery Hx of section Hx of shoulder surgery Family History Paternal Aunt Breast cancer Sister Breast cancer Social History Housing: Apartment Alcohol intake: never Patient Tobacco Use Status: Never used Tobacco e-Cigarette/Vaping Use: Never Used Second Hand Smoke Exposure: No service: No Current occupational status: retired Cognitive needs: No Hearing needs: No Vision needs: Yes Female Reproductive History Menstrual Age of Menarche: 15 Questionnaire PHQ-9 Over the last 2 weeks, how often have you been bothered by any of the following problems? 1. Little interest or pleasure in doing things: not at all 2. Feeling down, depressed, or hopeless: not at all 3. Trouble falling or staying asleep, or sleeping too much: not at all 4. Feeling tired or having little energy: not at all 5. Poor appetite or overeating: several days 6. Feeling bad about yourself - or that you are a failure or have let yourself or your family down: not at all 7. Trouble concentrating on things, such as reading the newspaper or watching television: not at all 8. Moving or speaking so slowly that other people could have noticed. Or the opposite - being so fidgety or restless that you have been moving around a lot more than usual: not at all 9. Thoughts that you would be better off or of hurting yourself in some way: not at all Total score: 1 Depression Screening Interpretation: Negative 86060 - PHQ-9 Billing: Yes Source: Developed by Drs. Ricardo Davenport, Nicole Landrum, Gallo Medina and colleagues, with an educational tita from [employer]. Thrive Questionnaire Date Thrive assessed: 10/14/22 I am a: Patient What is your living situation today?: I have a steady place to live Within the past 12 months, did the food you bought not last and you didn't have the money to get more?: Never true Within the past 12 months, did you worry whether your food would run out before you got money to buy more?: Never true Do you have trouble paying for medicines?: No Do you have trouble getting transportation to medical appointments?: No Do you have trouble paying your heating and electricity bill?: No Do you have trouble taking care of your child, family member or friend?: No Do you have trouble with day-to-day activities such as bathing, preparing meals, shopping, managing finances, etc.?: No Are you currently unemployed and looking for a job?: No Are you interested in more education?: No Please select the resources that you would like help with: None Currently or been in a relationship where the following occur: no concerns reported AUDIT C Alcohol Use Questionnaire (AUDIT-C) 1. How often do you have a drink containing alcohol?: Never Total Score: 0 ROBIN-7 AMB Questionnaire ROBIN-7 Date ROBIN - 7 assessed: 10/14/22 Feeling nervous, anxious, or on edge: 0 = Not at all Not being able to stop or control worryin = Not at all Worrying too much about different things: 0 = Not at all Trouble relaxin = Not at all Being so restless that it is hard to sit still: 0 = Not at all Becoming easily annoyed or irritable: 0 = Not at all Feeling afraid as if something awful might happen: 0 = Not at all Total ROBIN-7 score (0-4 normal; 5-9 mild; 10-14 moderate; 15-21 severe): 0 Source: Developed by Drs. Ricardo Davenport, Nicole Landrum, Gallo Medina and colleagues, with an educational tita from [employer]. ROBIN-7 Assessment Billing ROBIN-7 Assessment Tool: ROBIN-7 Assessment 32279 Review of Systems Const All systems reviewed & are unremarkable except as noted in HPI and below Eyes Reports no additional complaints, Denies change in vision and Denies other visual disturbances Card Denies chest pain at rest, Denies chest pain with activity, Denies edema, Denies irregular heart rhythm, Denies claudication, Denies dyspnea, Denies dyspnea on exertion, Denies orthopnea, Denies paroxysmal nocturnal dyspnea and Denies slow heart rate Resp Denies cough, Denies dyspnea and Denies dyspnea on exertion GI Denies abdominal pain, Denies change in bowel habits, Denies excessive flatus, Denies nausea and Denies vomiting Denies urinary incontinence, Denies urinary hesitancy and Denies urinary urgency Musc Denies abnormal gait, Denies atrophy, Denies deformity, Reports arthralgias and Denies limited range of motion Skin/Breast Denies bleeding lesions, Denies changing lesions and Denies rash Neuro Denies abnormal gait and Denies lack of coordination Physical exam (Primary Care) Vital Signs: Last Vital Signs BP 132/80 10/14/22 12:53 BMI result Body Mass Index 30.3 Tobacco/Smoking Status: Tobacco use Status Tobacco use date assessed 10/14/22 10/14/22 13:07 Patient Tobacco Use Status Never used Tobacco 10/14/22 13:07 e-Cigarette/Vaping Use Never Used 10/14/22 13:07 PHQ-9: PHQ-9 Score PHQ-9: Total score 1 10/14/22 13:32 Depression Screening Interpretation: Negative Thrive Assessment: Date of Thrive Assessment Date Thrive assessed 10/14/22 10/14/22 13:07 Currently or been in a relationship where the following occur: no concerns reported Eyes General: appearance normal, both eyes and all related structures Eyelids: Yes eyelids normal Conjunctivae: conjunctivae normal Neck Neck: Yes normal visual inspection and Yes supple Resp Effort & Inspection: normal respiratory effort Auscultation: clear to auscultation bilaterally Cardio Jugular venous distension: no JVD Rate: regular rate Rhythm: regular rhythm Heart sounds: S1 normal heart sound present and S2 normal heart sound present Extrem General: Yes full ROM Immunizations pneumoc 20-lino conj-dip cr(PF) Performing Provider: Heather Hernandez MD Administered by: NIDHI Dougherty on 10/14/22 13:32 Dose Route Admin Location Lot Number Expiration Date [facility] Turkish Line Attendant 0.5 mL IM Left Deltoid [id number] 11/17/23 5310-0684-30 [employer] VIS Given Date VIS Provided VIS Publication Date 10/14/22 Single Vaccine 21 Eligibility Eligibility Date Funding Source Not [facility] Eligible 10/14/22 Private Assessment and Plan Assessment & Plan (1) MYRNA (stress urinary incontinence, female): Code(s): N39.3 - Stress incontinence (female) (male) Plan: Continue oxybutynin. (2) Vitamin D deficiency: Code(s): E55.9 - Vitamin D deficiency, unspecified Plan: Continue vitamin-D supplements. (3) Dyslipidemia (high LDL; low HDL): Code(s): E78.5 - Hyperlipidemia, unspecified Plan: Continue statins. (4) GERD (gastroesophageal reflux disease): Code(s): K21.9 - Gastro-esophageal reflux disease without esophagitis Plan: Continue famotidine. Orders: Orders Comprehensive [place]. Panel Fast 4 Months E78.5 - Hyperlipidemia, unspecified Lipid Panel 4 Months E78.5 - Hyperlipidemia, unspecified Thyroid Stimulating Hormone 4 Months E66.9 - Obesity, unspecified Vitamin D 25-OH Total 4 Months E55.9 - Vitamin D deficiency, unspecified XR DEXA axial skeleton Today N95.9 - Unspecified menopausal and perimenopausal disorder Pneumococcal 20 Immunization Today Z23 - Encounter for immunization Referrals Urology Referral N39.3 - Stress incontinence (female) (male), N81.89 - Other female genital prolapse, R39.15 - Urgency of urination Coding Level of Care Code Est Pt Level 4 (72338) Diagnoses MYRNA (stress urinary incontinence, female) N39.3 Vitamin D deficiency E55.9 Dyslipidemia (high LDL; low HDL) E78.5 GERD (gastroesophageal reflux disease) K21.9 Additional Codes ROBIN-7 Assessment Billing - ROBIN-7 Assessment Tool: ROBIN-7 Assessment 74756 ([id number]) Time Spent (min) 21
== END 2022-10-14 13:35 | disposition home or self-care (01) ==
PROVIDERS: Visit Provider Internal Medicine
DX: N39.3 Stress incontinence (female) (male) (principal); E55.9 Vitamin D deficiency, unspecified; K21.9 Gastro-esophageal reflux disease without esophagitis; E78.5 Hyperlipidemia, unspecified; Z23 Encounter for immunization
CPT/HCPCS: 90471; 90677; 99214

== ENCOUNTER 2022-11-07 10:02 | Outpatient (REF) | payer MEDICARE, SELFPAY ==
--- NOTE | ~2022-11-07 | MM_ITS ---
EXAMINATION: BONE DENSITOMETRY CLINICAL INDICATION: Unspecified menopausal and perimenopausal disorder. COMPARISON: This is the patient's baseline examination. TECHNIQUE: Using a Respi DXA System (software version: 13.1) manufactured by [employer], dual-energy x-ray absorptiometry was performed of the lumbar spine and left hip. The images are of good technical quality. Summary results are attached. FINDINGS: LEFT FEMUR, NECK: BMD 0.862 g/cm2, Z-score -0.1, T-score -1.3, osteopenia. LEFT FEMUR, TOTAL: BMD 1.033 g/cm2, Z-score 1.1, T-score 0.2, normal. AP SPINE L1-L4: BMD 1.164 g/cm2, Z-score 1.0, T-score -0.1, normal. IDENTIFIED RISK FACTORS: Menopause. HISTORY OF FRACTURE: None listed. MEDICATIONS: Vitamin D. MM/XR DEXA axial skeleton IMPRESSION: 1. DIAGNOSIS: Osteopenia based on the lowest T-score value of -1.3 in the femoral neck applying World Health Organization criteria. 2. 10-YEAR FRACTURE RISK PREDICTION, FRAX: Major osteoporotic fracture (clinical spine, forearm, hip or shoulder) 4.6%. Hip fracture 0.4%. 3. Treatment Recommendations: NOF guidelines recommend consideration for treatment in postmenopausal women and men age 50 and older presenting with the following: -A hip or vertebral (clinical or morphometric) fracture. -T-score less than or equal to -2.5 at the femoral neck or spine after appropriate evaluation to exclude secondary causes. -Low bone mass at the hip or spine and a 10-year fracture probability by FRAX of greater than or equal to 3% for hip fracture or greater than or equal to 20% for major osteoporotic fracture based on the [place] adapted WHO algorithm. 4. Other Recommendations: All treatment decisions require clinical judgment and consideration of individual patient factors, including patient preferences, comorbidities, previous drug use, risk factors not captured in the FRAX model (e.g. frailty, falls, vitamin D deficiency, increased bone turnover, interval significant decline in bone density) and possible under or overestimation of fracture risk by FRAX. Additional medical evaluation for secondary cause of low bone mineral density may be appropriate. FUTURE SCAN RECOMMENDATION: People with diagnosed cases of osteoporosis or at high risk for fracture should have regular bone mineral density tests. For patients eligible for Medicare, routine testing is allowed once every 2 years. The testing frequency can be increased to one year for patients who have rapidly progressing disease, those who are receiving or discontinuing medical therapy to restore bone mass, or have additional risk factors.
== END 2022-11-07 10:03 | disposition home or self-care (01) ==
LOC: HO.MAMMO 10:02
PROVIDERS: Visit Provider Internal Medicine
DX: Z13.820 Encounter for screening for osteoporosis (principal); Z78.0 Asymptomatic menopausal state
CPT/HCPCS: 77080

== ENCOUNTER 2022-12-01 09:52 | Outpatient (AMB) | payer MEDICARE, SELFPAY ==
--- NOTE | 2022-12-01 09:55 | A.OFFVIS_ITS ---
Intake Intake Visit Reasons: Urgency of urination Intake Note: Patient presents today for a follow-up on Urgency Urination: Meds- Oxybutynin Allergies to Antibiotic- No Known Allergies Blood Thinner- None PVR- 0 mL Digital Asset Specialist Required: Yes Digital Asset Specialist Language: Romanian Accompanied by: Self / Same As Patient Allergies No Known Allergies Allergy (Verified 10/14/22 13:14) HPI HPI Comments History of Present Illness Details Julia is a 67-year-old female who presents today to the office for a follow-up. 12/01/22? She is followed today due to lower urinary tract symptoms of urgency, urinary incontinence and pelvic floor weakness. She had been referred to pelvic floor therapy with some improvement in her symptoms. She is a status post hysteroscopy and polypectomy done on 05/09/2022. She has not had her PT visit since her procedure and was discharged from the care. The patient is a Romanian speaking female. Certified pet ambassador was present during the visit. She was last seen by me on 03/31/22 for incontinence. Urodynamics was discussed to be scheduled at that time. She states that she has been taking oxybutynin 5 mg daily in the morning. She still has urinary tract symptoms of urgency for every 1 to 1 ? hour during the day and up 3 times at night to urinate. She complains of urinary leakage associated with coughing as well. She does feel that pelvic floor physical therapy was beneficial. Review of charts: Last visit: 03/31/22? Currently on oxybutynin 5 mg daily wears pads daily, denies UTI symptoms Family history breast cancer History of 2 vaginal pregnancies Evaluation today:? Urinalysis negative.? Pelvic exam negative for prolapse, Catheterized PVR 20 mL Reviewed Imaging: ?12/06/21- Renal U/S - kidneys - WNL 05/08/21- CTAP w/IV - Urinary tract WNL 12/01/22: Evaluation today?UA?leukocytes : negative; blood: negative. I advised a trial of oxybutynin in the evening; however do not feel that this may give major changes in her urinary symptoms. 12/01/22: Plan: Schedule urodynamics. [facility] Medical History GERD (gastroesophageal reflux disease) Thickened endometrium Obesity (BMI 30.0-34.9) Left flank pain Left lower quadrant abdominal pain Alopecia Varicose veins of lower extremities with inflammation Multinodular goiter (nontoxic) Heartburn Family history of breast cancer in sister Breast cancer screening, high risk patient Vitamin D deficiency Menopause Mixed dyslipidemia Hip pain, bilateral Metacarpophalangeal joint pain of right hand Shortness of breath on exertion Dyslipidemia (high LDL; low HDL) Arthritis Claudine's disease Surgical History Hx of section History of ear surgery Hx of cataract surgery Hx of shoulder surgery Family History Paternal Aunt Breast cancer Sister Breast cancer Social History Housing: Apartment Alcohol intake: never Patient Tobacco Use Status: Never used Tobacco e-Cigarette/Vaping Use: Never Used Second Hand Smoke Exposure: No service: No Current occupational status: retired Cognitive needs: No Hearing needs: No Vision needs: Yes Female Reproductive History Menstrual Age of Menarche: 15 Review of Systems Const All systems reviewed & are unremarkable except as noted in HPI and below Reports no additional complaints Eyes Reports no additional complaints ENT Reports no additional complaints Card Denies dyspnea Resp Denies cough and Denies dyspnea GI Reports no additional complaints Reports no additional complaints Musc Reports no additional complaints Skin/Breast Denies rash and Denies unusual bruising Neuro Reports no additional complaints Psych Reports no additional complaints Endo Reports no additional complaints Bandar/Lymph Reports no additional complaints Aller/Immun Reports no additional complaints Physical Exam Const General: cooperative, healthy appearing and no acute distress Orientation/consciousness: patient oriented x3 HEENT Head: Yes normal to inspection, Yes normocephalic and Yes atraumatic Eyes Conjunctivae: conjunctivae normal Neck Neck: Yes normal visual inspection and Yes trachea midline Chest Chest palpation & inspection: normal inspection of the chest Resp Effort & Inspection: normal respiratory effort Cardio Rate: regular rate GI Inspection: Yes normal to inspection Skin General skin exam: no rashes or lesions noted Neuro General: patient oriented x3 Extrem General: No edema Psych Appearance: grossly normal Office Procedures Post Void Residual Post Residual Void Post Void Residual (PVR): 0 56128-Laza Void Residual by ultrasound Results AMB Urinalysis, Automated UA Leukoctes 0 Yuriy/uL Last Edit by NIDHI Solorio on 12/01/22 10:10 UA Nitrite Negative Last Edit by Camelia [facility] on 12/01/22 10:10 UA Urobilinogen 0.2 mg/dL Last Edit by Camelia Vincent [facility] on 12/01/22 10:1 0 UA Protein 0 mg/dL Last Edit by Cam[facility] on 12/01/22 10:10 UA pH 6.0 Last Edit by Camelia Vincent [place] on 12/01/22 10:10 UA Blood 0 Arash/uL Last Edit by Camelia Vincent [place] on 12/01/22 10:10 UA Specific [place] 1.030 Last Edit by Camelia Vincent [place] on 12/01/22 10: 10 UA Ketone Negative Last Edit by Camelia Vincent [place] on 12/01/22 10:10 UA Bilirubin 0 mg/dL Last Edit by Camelia Vincent [place] on 12/01/22 10:10 UA Glucose 0 mg/dL Last Edit by Cam[facility] on 12/01/22 10:10 Results Reviewed Results Reviewed: Laboratory Last Values Urine pH (Auto) 6.0 12/01/22 10:09 Specific [place] (Auto) 1.030 12/01/22 10:09 Urine Protein (Auto) 0 mg/dL 12/01/22 10:09 Glucose (UA)(Auto) 0 mg/dL 12/01/22 10:09 Urine Ketones (Auto) Negative 12/01/22 10:09 Urine Blood (Auto) 0 Arash/uL 12/01/22 10:09 Urine Nitrite (Auto) Negative 12/01/22 10:09 Urine Bilirubin (Auto) 0 mg/dL 10/16/23 10:09 Urine Urobilinogen (Auto) 0.2 mg/dL 12/01/22 10:09 Leukocyte Esterase (Auto) 0 Yuriy/uL 12/01/22 10:09 Assessment & Plan Assessment & Plan (1) Urinary incontinence: Code(s): R32 - Unspecified urinary incontinence (2) Pelvic floor weakness: Code(s): N81.89 - Other female genital prolapse (3) MYRNA (stress urinary incontinence, female): Code(s): N39.3 - Stress incontinence (female) (male) (4) Urinary urgency: Code(s): R39.15 - Urgency of urination Plan Will schedule urodynamics.? Orders: Orders AMB Post Void Residual by ultrasound Today N39.8 - Other specified disorders of urinary system AMB Urinalysis Automated Today Z13.9 - Encounter for screening, unspecified Patient Instructions: The patient had an opportunity to ask questions regarding treatment plan. All questions were answered. Imaging, Laboratory studies and physical exam results were discussed and reviewed in detail. No major barriers to understanding were identified. The patient expressed understanding and agreement with the above treatment plan.? ? ? The patient is aware they should contact our office by phone for worsening of their current condition or the appearance of new symptoms. Compliance is encouraged with any medications and followup testing that is ordered.? ? ? It is a privilege to be allowed the opportunity to participate in the urologic care of your patient. If you have any questions or concerns regarding treatment for the above conditions please do not hesitate to contact me. The office telephone contact is [phone].? ? ? This note is constructed in part using voice recognition software. While every effort has been made to ensure accuracy adult day care worker errors may have been included.? ? ? Yours sincerely,? ? ? Carmelo Lewis MD? Coding Level of Care Code Est Pt Level 4 (22667) Diagnoses Urinary incontinence R32 Pelvic floor weakness N81.89 MYRNA (stress urinary incontinence, female) N39.3 Urinary urgency R39.15 CPT Codes Post Residual Void - PVR CPT Code: 64857-Fvoq Void Residual by ultrasound ([id number])
== END 2022-12-01 12:07 | disposition home or self-care (01) ==
PROVIDERS: PCP Internal Medicine; Visit Provider Urology
DX: N81.89 Other female genital prolapse (principal); N39.3 Stress incontinence (female) (male); R39.15 Urgency of urination; Z13.9 Encounter for screening, unspecified
CPT/HCPCS: 99214

== ENCOUNTER → 2022-12-01 09:52 | Outpatient (BNVA) | payer MEDICARE, SELFPAY | PROVIDERS: PCP Internal Medicine; Visit Provider Urology | DX: R32 Unspecified urinary incontinence (principal); N81.89 Other female genital prolapse; N39.3 Stress incontinence (female) (male); R39.15 Urgency of urination | CPT/HCPCS: 51798; 81003; 99212 ==

== ENCOUNTER 2022-12-15 10:04 | Outpatient (AMB) | payer MEDICARE, SELFPAY ==
--- NOTE | 2022-12-15 10:40 | AM.OFFVISNUR ---
Intake Intake Visit Reasons: Urodynamics Allergies No Known Allergies Allergy (Verified 10/14/22 13:14) Office Procedures Urodynamic Studies Consent Discussed risk and benefit or proposed procedure with the patient. Information consent for procedure given to the patient. Discussed technical aspects, risks, benefits and alternatives in full. Addressed all of the patient's questions and concerns regarding the procedure. The patient demonstrated knowledge and understanding. They wish to proceed with this procedure. Preparation The patient was prepped in the usual manner. A route relief driver was present and in the room. Genitalia was prepped with betadine solution in a sterile manner. Prep: The patient was prepped in the usual manner. A route relief driver was present and in the room. Genitalia was prepped with betadine solution in a sterile manner. 72670-Xnscguiuwsekjc w/ VIDEO EDITING INTERN 14682-Sdjovgp-Lhyzcdbmuxmm First 60675-Hios/Urinary Muscle Study 80339-Xxhmu-Qbjsnvhsr Pressure Test Procedure code (CPT) selection complete Office Meds nitrofurantoin monohydrate/macrocrystals 100 mg capsule Performing Provider: Carmelo Lewis MD [facility] [facility] [place] [facility] Administered by: Maurilio Arriaga LPN on 12/15/22 10:40 Dose Route Admin Location Dispensed Lot Number Expiration Date [facility] Export Traffic Department Manager 100 mg PO 1 cap Results AMB Urinalysis, Automated UA Leukoctes 0 Yuriy/uL Last Edit by Maurilio Arriaga LPN on 12/15/22 10:59 UA Nitrite Negative Last Edit by Maurilio Arriaga LPN on 12/15/22 10:59 UA Urobilinogen 0 mg/dL Last Edit by Maurilio Arriaga LPN on 12/15/22 10:59 UA Protein 0 mg/dL Last Edit by Maurilio Arriaga LPN on 12/15/22 10:59 UA pH 6.0 Last Edit by Maurilio Arriaga LPN on 12/15/22 10:59 UA Blood 0 Arash/uL Last Edit by Maurilio Arriaga LPN on 12/15/22 10:59 UA Specific [place] 1.015 Last Edit by Maurilio Arriaga LPN on 12/15/22 10:59 UA Ketone Negative Last Edit by Maurilio Arriaga LPN on 12/15/22 10:59 UA Bilirubin 0 mg/dL Last Edit by Maurilio Arriaga LPN on 12/15/22 10:59 UA Glucose 0 mg/dL Last Edit by Maurilio Arriaga LPN on 12/15/22 10:59 Coding CPT Codes Urodynamic Studies - CPT: 01050-Kujfzxfxruwyen w/ VIDEO EDITING INTERN ([id number]) Urodynamic Studies - CPT: 27542-Ngsctap-Yzqkcxlvztsq First ([id number]) Urodynamic Studies - CPT: 52983-Jmzv/Urinary Muscle Study ([id number]) Urodynamic Studies - CPT: 76331-Irkol-Cnzufchgw Pressure Test ([id number]) Assessment & Plan Assessment & Plan Orders: Orders AMB Urodynamics Studies Today R32 - Unspecified urinary incontinence AMB Urinalysis Automated Today R32 - Unspecified urinary incontinence
--- NOTE | 2022-12-15 17:22 | MHC.OFFVIS ---
Intake Intake Visit Reasons: Urodynamics Allergies No Known Allergies Allergy (Verified 10/14/22 13:14) Medication List - Last Reconciled 12/15/22 by Carmelo Lewis MD calcium carbonate (Oyster Shell Calcium) 500 mg PO BID 90 days cholecalciferol (vitamin D3) (Vitamin D3) 125 mcg PO DAILY diclofenac sodium 75 mg PO BID famotidine 40 mg PO DAILY oxiconazole 1% 1 appl topical BID PRN oxybutynin chloride ER 10 mg PO DAILY rosuvastatin 10 mg PO DAILY HPI HPI Comments History of Present Illness Details Julia is a 67-year-old female who presents today to the office for a urodynamics. The patient has seen and been evaluated and worked with PFPT. Interpretation: CMG parameters detailed below. During the filling phase there was sensory urgency was noted, detrusor overactivity was not observed. The patient felt that she was at capacity at 295 mL instiled and voided 400 mL. Leakage was observed during cough and valsalva at low leak point pressure consistent with ISD EMG- Appropriate changes in the waveforms were noted through out the study. There was a decrease in the EMG activity during the voiding c/w normal function of the pelvic floor. Lenthy discussion including treatment options, pt is kinyarwanda speaking, Certified healthcare interpreter present PLan: ISD, discussed bulkamid- risks and benefits discussed including but not limited to urinary retention, need to repeat procedure, infection Sensory urgency, oxybutynin 10 ER daily. [facility] Medical History GERD (gastroesophageal reflux disease) Thickened endometrium Obesity (BMI 30.0-34.9) Left flank pain Left lower quadrant abdominal pain Alopecia Varicose veins of lower extremities with inflammation Multinodular goiter (nontoxic) Heartburn Family history of breast cancer in sister Breast cancer screening, high risk patient Vitamin D deficiency Menopause Mixed dyslipidemia Hip pain, bilateral Metacarpophalangeal joint pain of right hand Shortness of breath on exertion Dyslipidemia (high LDL; low HDL) Arthritis Claudine's disease Surgical History Hx of section History of ear surgery Hx of cataract surgery Hx of shoulder surgery Family History Paternal Aunt Breast cancer Sister Breast cancer Social History Housing: Apartment Alcohol intake: never Patient Tobacco Use Status: Never used Tobacco e-Cigarette/Vaping Use: Never Used Second Hand Smoke Exposure: No service: No Current occupational status: retired Cognitive needs: No Hearing needs: No Vision needs: Yes Female Reproductive History Menstrual Age of Menarche: 15 Office Procedures Urodynamic Studies Consent Discussed risk and benefit or proposed procedure with the patient. Information consent for procedure given to the patient. Discussed technical aspects, risks, benefits and alternatives in full. Addressed all of the patient's questions and concerns regarding the procedure. The patient demonstrated knowledge and understanding. They wish to proceed with this procedure. Preparation The patient was prepped in the usual manner. A manager care management was present and in the room. Genitalia was prepped with betadine solution in a sterile manner. Procedure Complex Uroflow Complex uroflow performed by: Carmelo Lewis Maximum urinary flow rate (mL/second): 28 Voiding time (seconds): 20 Voided volume (mL): 57 Residual urine (mL): 55 Cystometrogram Void Pressure Vaginal/rectal catheter type: vaginal First sensation at (mL): 20 First detrussor pressure (cm H2O): 1.6 First desire at (mL): 112 First desire pressure (cm H2O): 1.7 Strong desire to void occured at (mL): 146 Strong desire detrussor pressure (cm H2O): 0,0 Maximum fill (mL): 295 Maximum fill detrussor pressure (cm H2O): 0.0 Voided with max detrussor pressure of (cm H2O): 25 Maximum flow rate (mL/second): 31 04438-Jyrhhzbviesjns w/ VICE PRESIDENT CORPORATE COMMUNICATIONS 15894-Bsljajk-Tgshexufqpvl First 82505-Mqhp/Urinary Muscle Study 96096-Ufpzo-Ybjbkspxl Pressure Test Procedure code (CPT) selection complete Office Meds nitrofurantoin monohydrate/macrocrystals 100 mg capsule Performing Provider: Carmelo Lewis MD Performing Location[facility] [place] [facility] Administered by: Maurilio Arriaga LPN on 12/15/22 10:40 Dose Route Admin Location Dispensed Lot Number Expiration Date [employer] Pricing Actuary 100 mg PO 1 cap Results AMB Urinalysis, Automated UA Leukoctes 0 Yuriy/uL Last Edit by Maurilio Arriaga LPN on 12/15/22 10:59 UA Nitrite Negative Last Edit by Maurilio Arriaga LPN on 12/15/22 10:59 UA Urobilinogen 0 mg/dL Last Edit by Maurilio Arriaga LPN on 12/15/22 10:59 UA Protein 0 mg/dL Last Edit by Maurilio Arriaga LPN on 12/15/22 10:59 UA pH 6.0 Last Edit by Maurilio Arriaga LPN on 12/15/22 10:59 UA Blood 0 Arash/uL Last Edit by Maurilio Arriaga LPN on 12/15/22 10:59 UA Specific [place] 1.015 Last Edit by Maurilio Arriaga LPN on 12/15/22 10:59 UA Ketone Negative Last Edit by Maurilio Arriaga LPN on 12/15/22 10:59 UA Bilirubin 0 mg/dL Last Edit by Maurilio Arriaga LPN on 12/15/22 10:59 UA Glucose 0 mg/dL Last Edit by Maurilio Arriaga LPN on 12/15/22 10:59 Results Reviewed Results Reviewed: Laboratory Last Values Urine pH (Auto) 6.0 12/15/22 10:58 Specific [place] (Auto) 1.015 12/15/22 10:58 Urine Protein (Auto) 0 mg/dL 12/15/22 10:58 Glucose (UA)(Auto) 0 mg/dL 12/15/22 10:58 Urine Ketones (Auto) Negative 12/15/22 10:58 Urine Blood (Auto) 0 Arash/uL 12/15/22 10:58 Urine Nitrite (Auto) Negative 12/15/22 10:58 Urine Bilirubin (Auto) 0 mg/dL 12/15/22 10:58 Urine Urobilinogen (Auto) 0 mg/dL 12/15/22 10:58 Leukocyte Esterase (Auto) 0 Yuriy/uL 12/15/22 10:58 Assessment & Plan Assessment & Plan (1) Urinary incontinence: Code(s): R32 - Unspecified urinary incontinence (2) Intrinsic sphincter deficiency (ISD): Code(s): N36.42 - Intrinsic sphincter deficiency (ISD) (3) Urinary urgency: Code(s): R39.15 - Urgency of urination Orders: Orders AMB Urodynamics Studies Today R32 - Unspecified urinary incontinence AMB Urinalysis Automated Today R32 - Unspecified urinary incontinence Medications: New oxybutynin chloride ER oxybutynin 10 mg to replace the oxybutynin 5 mg 10 mg PO DAILY 30 tabs 3RF Coding Level of Care Code Est Pt Level 3 (31020) Diagnoses Urinary incontinence R32 Intrinsic sphincter deficiency (ISD) N36.42 Urinary urgency R39.15 CPT Codes Urodynamic Studies - CPT: 64503-Xoxdesszroosmx w/ VICE PRESIDENT CORPORATE COMMUNICATIONS ([id number]) Urodynamic Studies - CPT: 67810-Nxjxven-[place]oheqvd First ([id number]) Urodynamic Studies - CPT: 09332-Dwga/Urinary Muscle Study ([id number]) Urodynamic Studies - CPT: 14691-Wvkzf-Vdzlweznz Pressure Test ([id number])
== END 2022-12-15 12:17 | disposition home or self-care (01) ==
PROVIDERS: PCP Internal Medicine; Visit Provider Urology
DX: R32 Unspecified urinary incontinence (principal); N36.42 Intrinsic sphincter deficiency (ISD); R39.15 Urgency of urination
CPT/HCPCS: 51728; 51741; 51784; 51797

== ENCOUNTER → 2022-12-15 10:04 | Outpatient (BNVA) | payer MEDICARE, OTHER, SELFPAY | PROVIDERS: PCP Internal Medicine; Visit Provider Urology | DX: N36.42 Intrinsic sphincter deficiency (ISD) (principal); R39.15 Urgency of urination; R32 Unspecified urinary incontinence | CPT/HCPCS: 51728; 51741; 51784; 51797; 81003 ==

== ENCOUNTER 2022-12-31 10:04 | Outpatient (REF) | payer MEDICARE, SELFPAY | END 2022-12-31 10:05 | disposition home or self-care (01) | LOC: HO.MAMMO 10:04 | PROVIDERS: PCP Internal Medicine; Visit Provider Internal Medicine | DX: Z12.31 Encounter for screening mammogram for malignant neoplasm of breast (principal) | CPT/HCPCS: 77063; 77067 ==

== ENCOUNTER → 2022-12-31 10:30 | Outpatient (BNV) | payer MEDICARE, SELFPAY | PROVIDERS: PCP Internal Medicine; Visit Provider Radiology Diagnostic Radiology | DX: Z12.31 Encounter for screening mammogram for malignant neoplasm of breast (principal) | CPT/HCPCS: 77063; 77067 ==

== ENCOUNTER 2023-03-26 08:49 | Outpatient (REF) | payer MEDICARE, SELFPAY ==
[2023-03-26 10:46] LABS: Alanine Aminotransferase 16 U/L (0-31); Albumin Level 3.9 g/dL (3.5-5.0); Alkaline Phosphatase 104 U/L (39-117); Anion Gap 11 (12-20); Aspartate Amino Transferase 20 U/L (5-31); Bilirubin Total 0.4 mg/dL (0.0-1.0); Blood Urea Nitrogen 19 mg/dL (9-16); Calcium 9.2 mg/dL (8.4-10.2); Carbon Dioxide 27 mmol/L (22-29); Chloride 106 mmol/L (96-108); Cholesterol 148 mg/dL (<200); Estimated Glomerular Filt Rate > 60; Glucose Fasting 97 mg/dL (60-99); HDL Cholesterol 37 mg/dL (>40); LDL Cholesterol Calculated 82 mg/dL (<100); Potassium 4.7 mmol/L (3.3-5.1); Sodium 139 mmol/L (135-145); Total Protein 7.8 g/dL (6.5-8.0); Triglycerides 148 mg/dL (<150)
[2023-03-26 11:04] LABS: Thyroid Stimulating Hormone 2.02 uIU/mL (0.32-4.0); Vitamin D 25-OH Total 63.5 ng/mL (>30)
== END 2023-03-26 08:50 | disposition home or self-care (01) ==
LOC: HO.LAB 08:49
PROVIDERS: PCP Internal Medicine; Visit Provider Internal Medicine
DX: E78.5 Hyperlipidemia, unspecified (principal); E55.9 Vitamin D deficiency, unspecified; E66.9 Obesity, unspecified
CPT/HCPCS: 36415; 80053; 80061; 82306; 84443

== ENCOUNTER 2023-03-31 08:50 | Outpatient (AMB) | payer MEDICARE, SELFPAY ==
[2023-03-31 09:06] VITALS: BP 146/70; BMI 31.5
--- NOTE | 2023-03-31 09:06 | A.OFFPC_ITS ---
Vital Signs 03/31/23 09:06 03/31/23 09:44 Height 5 ft 3 in Weight 178 lb BMI 31.5 BP 146/70 H 135/70 Blood Pressure Location Lt brachial Lt brachial Position Sitting Sitting Intake Visit Reasons: ANNUAL Intake Note: Patient here for a physical exam Outreach And Education Social Worker Required: No Accompanied by: Self / Same As Patient Allergies No Known Allergies Allergy (Verified 03/31/23 09:27) Medication List - Last Reconciled 03/31/23 by Heather Hernandez MD calcium carbonate (Oyster Shell Calcium) 500 mg PO BID 90 days cholecalciferol (vitamin D3) (Vitamin D3) 125 mcg PO DAILY diclofenac sodium 75 mg PO BID famotidine 40 mg PO DAILY oxiconazole 1% 1 appl topical BID PRN oxybutynin chloride ER 10 mg PO DAILY rosuvastatin 10 mg PO DAILY Tobacco use date assessed: 03/31/23 Fall risk assessment: 1 Fall in past year Last assessed Fall Risk: 03/31/23 Dental Screening Dental Screen Date: 03/31/23 Did you have a dental visit in the last 12 months?: Yes Did you have a dental problem in the last 6 months where you did not have access to dental care?: No Was dental information given to patient?: Patient has dentist HPI HPI Comments History of Present Illness Details This is a 68-year-old female that comes for her physical exam. Last mammogram was December 2022 and was normal. Last Pap smear was 2020. Last bone density was 2022 showing osteopenia. Has never had a colonoscopy and has an office visit with Gastroenterology to screen if colonoscopy is needed. No chest pain or shortness of breath. [facility] Medical History (Updated 03/31/23 @ 10:17 by Heather Hernandez MD) GERD (gastroesophageal reflux disease) Thickened endometrium Obesity (BMI 30.0-34.9) Left flank pain Left lower quadrant abdominal pain Alopecia Varicose veins of lower extremities with inflammation Multinodular goiter (nontoxic) Heartburn Family history of breast cancer in sister Breast cancer screening, high risk patient Vitamin D deficiency Menopause Mixed dyslipidemia Hip pain, bilateral Metacarpophalangeal joint pain of right hand Shortness of breath on exertion Dyslipidemia (high LDL; low HDL) Arthritis Claudine's disease Surgical History Hx of section History of ear surgery Hx of cataract surgery Hx of shoulder surgery Family History Paternal Aunt Breast cancer Sister Breast cancer Social History Housing: Apartment Alcohol intake: never Patient Tobacco Use Status: Never used Tobacco e-Cigarette/Vaping Use: Never Used Second Hand Smoke Exposure: No service: No Current occupational status: retired Cognitive needs: No Hearing needs: No Vision needs: Yes Female Reproductive History Menstrual Age of Menarche: 15 Questionnaire PHQ-9 Over the last 2 weeks, how often have you been bothered by any of the following problems? 1. Little interest or pleasure in doing things: not at all 2. Feeling down, depressed, or hopeless: not at all 3. Trouble falling or staying asleep, or sleeping too much: several days 4. Feeling tired or having little energy: not at all 5. Poor appetite or overeating: several days 6. Feeling bad about yourself - or that you are a failure or have let yourself or your family down: not at all 7. Trouble concentrating on things, such as reading the newspaper or watching television: not at all 8. Moving or speaking so slowly that other people could have noticed. Or the opposite - being so fidgety or restless that you have been moving around a lot more than usual: not at all 9. Thoughts that you would be better off or of hurting yourself in some way: not at all Total score: 2 Depression Screening Interpretation: Negative Depression Screening Done: Yes 00334 - PHQ-9 Billing: Yes Source: Developed by Drs. Ricardo Davenport, Nicole Landrum, Gallo Medina and colleagues, with an educational tita from [employer]. Thrive Questionnaire Date Thrive assessed: 03/31/23 I am a: Patient What is your living situation today?: I have a steady place to live Within the past 12 months, did the food you bought not last and you didn't have the money to get more?: Never true Within the past 12 months, did you worry whether your food would run out before you got money to buy more?: Never true Do you have trouble paying for medicines?: No Do you have trouble getting transportation to medical appointments?: No Do you have trouble paying your heating and electricity bill?: No Do you have trouble taking care of your child, family member or friend?: No Do you have trouble with day-to-day activities such as bathing, preparing meals, shopping, managing finances, etc.?: No Are you currently unemployed and looking for a job?: No Are you interested in more education?: No Please select the resources that you would like help with: None Currently or been in a relationship where the following occur: no concerns reported THRIVE Score: 0 AUDIT C Alcohol Use Questionnaire (AUDIT-C) 1. How often do you have a drink containing alcohol?: Never Total Score: 0 ROBIN-7 AMB Questionnaire ROBIN-7 Date ROBIN - 7 assessed: 03/31/23 Feeling nervous, anxious, or on edge: 0 = Not at all Not being able to stop or control worryin = Not at all Worrying too much about different things: 0 = Not at all Trouble relaxin = Not at all Being so restless that it is hard to sit still: 0 = Not at all Becoming easily annoyed or irritable: 0 = Not at all Feeling afraid as if something awful might happen: 0 = Not at all Total ROBIN-7 score (0-4 normal; 5-9 mild; 10-14 moderate; 15-21 severe): 0 Source: Developed by Drs. Ricardo Davenport, Nicole Landrum, Gallo Medina and colleagues, with an educational tita from [employer]. ROBIN-7 Assessment Billing ROBIN-7 Assessment Tool: ROBIN-7 Assessment 09040 Review of Systems Const All systems reviewed & are unremarkable except as noted in HPI and below Eyes Reports no additional complaints, Denies change in vision and Denies other visual disturbances Card Denies chest pain at rest, Denies chest pain with activity, Denies edema, Denies irregular heart rhythm, Denies claudication, Denies dyspnea, Denies dyspnea on exertion, Denies orthopnea, Denies paroxysmal nocturnal dyspnea and Denies slow heart rate Resp Denies cough, Denies dyspnea and Denies dyspnea on exertion GI Denies abdominal pain, Denies change in bowel habits, Denies excessive flatus, Denies nausea and Denies vomiting Denies urinary incontinence, Denies urinary hesitancy and Denies urinary urgency Musc Denies abnormal gait, Denies atrophy, Denies deformity and Denies limited range of motion Skin/Breast Denies bleeding lesions, Denies changing lesions and Denies rash Neuro Denies abnormal gait, Denies behavioral changes, Denies confusion and Denies lack of coordination Psych Denies behavioral changes and Denies confusion Physical exam (Primary Care) Vital Signs: Last Vital Signs BP 135/70 03/31/23 09:44 BMI result Body Mass Index 31.5 Tobacco/Smoking Status: Tobacco use Status Tobacco use date assessed 03/31/23 03/31/23 09:12 Patient Tobacco Use Status Never used Tobacco 03/31/23 09:12 e-Cigarette/Vaping Use Never Used 03/31/23 09:12 PHQ-9: PHQ-9 Score PHQ-9: Total score 2 03/31/23 09:45 Depression Screening Interpretation: Negative Thrive Assessment: Date of Thrive Assessment Date Thrive assessed 03/31/23 03/31/23 09:12 Currently or been in a relationship where the following occur: no concerns reported Const General: No confusion Orientation/consciousness: patient oriented x3 and No confusion HENMT Head: Yes normal to inspection, Yes normocephalic and Yes atraumatic Ears: external ears normal Eyes General: appearance normal, both eyes and all related structures Eyelids: Yes eyelids normal Conjunctivae: conjunctivae normal Neck Neck: Yes normal visual inspection and Yes supple Resp Effort & Inspection: normal respiratory effort Auscultation: clear to auscultation bilaterally Cardio Jugular venous distension: no JVD Rate: regular rate Rhythm: regular rhythm Heart sounds: S1 normal heart sound present and S2 normal heart sound present GI Inspection: Yes normal to inspection Palpation (GI): Soft to palpation and nontender Auscultation: normal bowel sounds Skin General skin exam: no rashes or lesions noted Neuro General: patient oriented x3, no focal motor deficits and No confusion Extrem General: Yes full ROM Psych Appearance: grossly normal Assessment and Plan Assessment & Plan (1) Physical exam: Code(s): Z00.00 - Encounter for general adult medical examination without abnormal findings Plan: Repeat in a year. Orders: Orders Vitamin D 25-OH Total 6 Months E55.9 - Vitamin D deficiency, unspecified Thyroid Peroxidase Antibodies 6 Months E04.2 - Nontoxic multinodular goiter Thyroglobulin Antibodies 6 Months E04.2 - Nontoxic multinodular goiter Thyroid Stimulating Hormone 6 Months E04.2 - Nontoxic multinodular goiter Medications: New cholecalciferol (vitamin D3) 50 mcg PO DAILY 90 caps 1RF 90 days Changed From diclofenac sodium 75 mg PO BID To diclofenac sodium 75 mg PO BID 180 tabs 0RF 90 days Refilled rosuvastatin 10 mg PO DAILY 90 tabs 1RF E78.2 - Mixed hyperlipidemia Coding Level of Care Code Est Pt Prev Care >65y(37573) Diagnoses Physical exam Z00.00 Additional Codes ROBIN-7 Assessment Billing - ROBIN-7 Assessment Tool: ROBIN-7 Assessment 82386 ([id number]) Time Spent (min) 32
[2023-03-31 09:44] VITALS: BP 135/70
== END 2023-03-31 09:41 | disposition home or self-care (01) ==
PROVIDERS: PCP Internal Medicine; Visit Provider Internal Medicine
DX: Z00.00 Encounter for general adult medical examination without abnormal findings (principal)
CPT/HCPCS: 99397

== ENCOUNTER 2023-04-15 10:35 | Outpatient (AMB) | payer MEDICARE, SELFPAY ==
--- NOTE | 2023-04-15 10:39 | A.OFFVIS_ITS ---
Intake Vital Signs 3 04/15/23 10:50 Height 5 ft 3 in Weight 178 lb BMI 31.5 BP 144/79 H Blood Pressure Location Lt brachial Position Sitting Pulse 76 Intake Visit Reasons: Colonoscopy Screening Intake Note: New patient in office for colonoscopy screening. CC: Patient c/o feeling that her food gets stuck in her throat and she has to constantly clear her throat. Patient reports constipation, she is taking Magnesium BID and it helps with constipation. She also takes Famotidine for GERD which per PT works well. Grinder Hand Required: Yes Accompanied by: Self / Same As Patient Allergies No Known Allergies Allergy (Verified 04/15/23 11:09) HPI Colonoscopy Screening 2 HPI0 Details 68-year-old female here for preprocedura l meeting to discuss a screening colonoscopy. She is referred by Heather Rodrigues of [facility] primary care. PMX Obesity Claudine's thyroiditis/multinodular goiter Tachycardia GERD High cholesterol Urinary incontinence Varicose veins Pelvic floor weakness Bilateral hip pain Hand pain * SURGICAL HISTORY section There surgery Cataract surgery Shoulder surgery * ALLERGIES: NKDA * [employer] LABS: Laboratory Tests 03/26/23 09:05 Estimated GFR > 60 Total Bilirubin 0.4 AST 20 ALT 16 Alkaline Phosphata se 104 TSH 2.02 TODAY'S VISIT [place] # Geno Guerrero This is her first colonoscopy. She has CIC tx with magnesium bid with good results, her GERD is controlled. She reports she has been having episodes of tachycardia with her measured pulse going up to 167-170 beats per minute at rest. She has not seen a esthetics instructor about this. I will be referring her for preop clearance and to clear this up letting her know that she likely will need a Holter monitor. There are no prior problems with anesthesia or sedation. No ID problems. Her sister had polyps. No CRC known. Ref for EKG and Cardiology consult [facility] Medical History Physical exam Abnormal ultrasound of endometrium Urinary urgency Thickened endometrium Left flank pain Mass of right lower leg Varicose veins of right lower extremity with inflammation Left lower quadrant abdominal pain Multinodular goiter (nontoxic) Screening for malignant neoplasm of cervix Urinary incontinence Women's annual routine gynecological examination Heartburn Menopause GERD (gastroesophageal reflux disease) Obesity (BMI 30.0-34.9) Alopecia Varicose veins of lower extremities with inflammation Family history of breast cancer in sister Breast cancer screening, high risk patient Vitamin D deficiency Mixed dyslipidemia Hip pain, bilateral Metacarpophalangeal joint pain of right hand Shortness of breath on exertion Dyslipidemia (high LDL; low HDL) Arthritis Claudine's disease Surgical History Hx of section History of ear surgery Hx of cataract surgery Hx of shoulder surgery Family History Paternal Aunt Breast cancer Sister Breast cancer Father Esophageal cancer Maternal Uncle Cancer Social History Housing: Apartment Alcohol intake: never Patient Tobacco Use Status: Never used Tobacco e-Cigarette/Vaping Use: Never Used Second Hand Smoke Exposure: No service: No Current occupational status: retired Cognitive needs: No Hearing needs: No Vision needs: Yes Female Reproductive History Menstrual Age of Menarche: 15 Review of Systems Const Denies fatigue, Denies fever(s), Denies night sweats, Denies poor appetite, Reports weight gain (18 lbs) and Denies weight loss ENT Reports Normal hearing present, Denies dental pain, Denies dysphagia, Denies hearing loss, Denies mouth pain, Denies odynophagia, Denies throat swelling, Denies tongue swelling and Reports other (Dentition adequate) Card Reports palpitations Resp Reports no additional complaints GI Details: Denies abdominal pain, Denies melena, Denies bloating, Denies hematochezia, Reports constipation, Denies GI cramping, Denies dysphagia, Denies excessive flatus, Denies early satiety, Reports heartburn, Denies diarrhea, Denies nausea, Denies odynophagia, Denies vomiting and Denies hematemesis Skin/Breast Denies pruritus, Denies lesions, Denies rash and Denies jaundice Neuro Reports Normal hearing present and Denies Abnormal speech present Endo Denies fatigue and Reports palpitations Aller/Immun Denies throat swelling and Denies tongue swelling Physical Exam Vital Signs: Last Vital Signs Pulse 76 04/15/23 10:50 BP 144/79 H 04/15/23 10:50 BMI result Body Mass Index 31.5 Const General: cooperative, no acute distress, well developed and well groomed Nutritional Appearance: well nourished and obese Orientation/consciousness: oriented to person, oriented to place and oriented to time Limitations: language barrier HEENT Head: Yes normocephalic and Yes atraumatic Eyes General: appearance normal, both eyes and all related structures Pupils: Equal, round and reactive pupils present Neck Neck: Yes normal visual inspection and Yes no lymphadenopathy Thyroid: Thyroid normal Resp Effort & Inspection: normal respiratory effort and able to speak in complete sentences Auscultation: clear to auscultation bilaterally Cardio Rate: regular rate Rhythm: regular rhythm Heart sounds: Normal, physiologic split S2 sound present Peripheral pulses: radial pulses present and posterior tibial pulses present GI Inspection: No distended, No Abdominal panniculus present and Yes obesity Palpation (GI): Soft to palpation, nontender, no guarding, not rigid and No hepatosplenomegaly present Percussion: Yes normal to percussion Auscultation: normal bowel sounds Rectal Exam - Female: deferred Abdomen image: 2 1. Surgical scar Skin General skin exam: no rashes or lesions noted, turgor normal, skin not dry, no jaundice, No spider nevi and no striae Rashes: no rashes Nails: normal Neuro General: oriented to person, oriented to place and oriented to time Cranial nerves: Yes Equal, round and reactive pupils present and Yes Normal hearing present Speech: No Abnormal speech present Extrem General: Yes normal to inspection, No clubbing, No cyanosis and No edema Psych Appearance: grossly normal and well kempt Mental Status: mental status grossly normal Speech and movement: Normal speech and movement present Affect: normal affect Attitude: cooperative Thought process: Normal thought process present and not confabulating Thought content: Normal thought content present Insight: Limited insight present (Psych) Judgement: Limited judgement present (Psych) Assessment & Plan Assessment & Plan (1) Pre-op examination: Code(s): Z01.818 - Encounter for other preprocedural examination (2) Palpitations: Code(s): R00.2 - Palpitations (3) Tachycardia: Code(s): R00.0 - Tachycardia, unspecified Plan [place] # Geno LIve This is her first colonoscopy. She has CIC tx with magnesium bid with good results, her GERD is controlled. She reports she has been having episodes of tachycardia with her measured pulse going up to 167-170 beats per minute at rest. She has not seen a esthetics instructor about this. I will be referring her for preop clearance and to clear this up letting her know that she likely will need a Holter monitor. There are no prior problems with anesthesia or sedation. No ID problems. Her sister had polyps. No CRC known. Ref for EKG and Cardiology consult Orders: Orders 2 ECG 12 lead EKG Today R00.0 - Tachycardia, unspecified, R00.2 - Palpitations Colonoscopy - GI Use Only Today Z01.818 - Encounter for other preprocedural examination Referrals 2 Cardiology Referral R00.0 - Tachycardia, unspecified, R00.2 - Palpitations Medications: New 2 bisacodyl (Dulcolax (bisacodyl)) 10 mg (2 x 5 mg) PO BEDTIME 2 days 4 tabs 0RF peg 3350-electrolytes 236-22.74-6.74 -5.86 gram (Golytely) until fecal effluent is clear; do not exceed a total volume of 2,000 mL 240 mL PO Q10M 1 day 4,000 mL 0RF Z12.11 - Encounter for screening for malignant neoplasm of colon Coding Level of Care Code New Pt Level 3 (40695) Diagnoses Pre-op examination Z01.818 Palpitations R00.2 Tachycardia R00.0
[2023-04-15 10:50] VITALS: BP 144/79; PULSE 76; BMI 31.5
== END 2023-04-15 11:51 | disposition home or self-care (01) ==
PROVIDERS: PCP Internal Medicine; Visit Provider Nurse Practitioner
DX: K21.9 Gastro-esophageal reflux disease without esophagitis (principal); K59.04 Chronic idiopathic constipation; Z12.11 Encounter for screening for malignant neoplasm of colon; R00.2 Palpitations; R00.0 Tachycardia, unspecified
CPT/HCPCS: 99203; 99213

== ENCOUNTER → 2023-04-15 10:35 | Outpatient (BNVA) | payer MEDICARE, SELFPAY | PROVIDERS: PCP Internal Medicine; Visit Provider Nurse Practitioner | DX: Z01.818 Encounter for other preprocedural examination (principal); R00.2 Palpitations; R00.0 Tachycardia, unspecified | CPT/HCPCS: 99202 ==

== ENCOUNTER 2023-06-10 09:58 | Outpatient (REF) | payer MEDICARE, SELFPAY ==
[2023-06-15 21:12] LABS: HPV mRNA E6/E7 rflx Not Detected (Not Detected)
== END 2023-06-10 09:59 | disposition home or self-care (01) ==
LOC: HO.LNP 09:58
PROVIDERS: PCP Internal Medicine; Visit Provider Obstetrics & Gynecology
DX: Z01.419 Encounter for gynecological examination (general) (routine) without abnormal findings (principal); N63.25 Unspecified lump in the left breast, overlapping quadrants
CPT/HCPCS: 87624; 88142

== ENCOUNTER 2023-06-10 09:58 | Outpatient (AMB) | payer MEDICARE, SELFPAY ==
--- NOTE | 2023-06-10 10:17 | A.OFFVIS_ITS ---
Vital Signs 06/10/23 10:18 Height 5 ft 3 in Weight 170 lb BMI 30.1 BP 122/76 Intake Visit Reasons: MANAGEMENT DEVELOPMENT SPECIALIST annual exam Header Up Required: Yes Header Up Language: Cherry Pitter Name: Janette TERRELL Information Interpreted: non-clinical & clinical Returned Goods Receiving Clerk: Returned Goods Receiving Clerk Present (Janette TERRELL) Accompanied by: Self / Same As Patient Allergies No Known Allergies Allergy (Verified 06/10/23 10:24) Post menopausal: Yes HPI Comments Details: Presenting for annual exam. Complaining of left breast lump Last Pap was negative in 11/06, no HPV done Last Mammogram was BI-RADS 1 in 01/08 Last DEXA scan was in 11/08 was in the low risk category No previous screening Colonoscopy, the patient is scheduled for screening colonoscopy in July 2023 [facility] Medical History Physical exam Abnormal ultrasound of endometrium Urinary urgency Thickened endometrium Left flank pain Mass of right lower leg Varicose veins of right lower extremity with inflammation Left lower quadrant abdominal pain Multinodular goiter (nontoxic) Screening for malignant neoplasm of cervix Urinary incontinence Women's annual routine gynecological examination Heartburn Menopause GERD (gastroesophageal reflux disease) Obesity (BMI 30.0-34.9) Alopecia Varicose veins of lower extremities with inflammation Family history of breast cancer in sister Breast cancer screening, high risk patient Vitamin D deficiency Mixed dyslipidemia Hip pain, bilateral Metacarpophalangeal joint pain of right hand Shortness of breath on exertion Dyslipidemia (high LDL; low HDL) Arthritis Claudine's disease Surgical History Hx of section History of ear surgery Hx of cataract surgery Hx of shoulder surgery Family History Paternal Aunt Breast cancer Sister Breast cancer Father Esophageal cancer Maternal Uncle Cancer Social History Household Members Other:: daughter Housing: Apartment Alcohol intake: never Patient Tobacco Use Status: Never used Tobacco e-Cigarette/Vaping Use: Never Used Second Hand Smoke Exposure: No service: No Current occupational status: retired Sexually active: No Sexual orientation: Straight/Heterosexual Gender identity: Female Cognitive needs: No Hearing needs: No Vision needs: Yes Female Reproductive History Menstrual Age of Menarche: 15 Total pregnancies: 3 Full term: 2 Number of Living Children: 2 Date of last pap smear: 11/01/20 Review of Systems Const All systems reviewed & are unremarkable except as noted in HPI and below Card Reports as per HPI Resp Reports as per HPI GI Reports as per HPI and Reports no additional complaints Reports as per HPI Physical Exam Vital Signs: Last Vital Signs BP 122/76 06/10/23 10:18 BMI result Body Mass Index 30.1 Const General: cooperative, healthy appearing and comfortable Chest Chest palpation & inspection: normal inspection of the chest and normal palpation of entire chest wall Breast/axilla inspection: normal inspection of the breasts and normal inspection of the axillae Breast/axilla palpation: normal palpation of the breasts (Right breast within normal), normal palpation of the axillae, no axillary lymphadenopathy and abnormal palpation of the breast (Left breast tender lump 5 cm from the nipple at 03:00 o'clock) Resp Effort & Inspection: normal respiratory effort Auscultation: clear to auscultation bilaterally Percussion: percussion normal Cardio Palpation: normal PMI Rate: regular rate Rhythm: regular rhythm Heart sounds: no murmurs and no rubs Peripheral pulses: Peripheral pulses 2+ throughout GI Inspection: Yes normal to inspection Palpation (GI): Soft to palpation, nontender, no guarding, not rigid and No hepatosplenomegaly present Percussion: Yes normal to percussion Auscultation: normal bowel sounds Rectal Exam - Female: deferred General: Yes bladder normal to palpation External Female Exam: No lesion Speculum Exam - Vagina: normal appearance of the vagina, normal palpation, normal vaginal discharge and not erythematous Speculum Exam - Cervix: normal appearance of the cervix and normal palpation Bimanual exam- vagina & uterus: normal bimanual exam, normal palpation, uterine size normal, bladder normal to palpation, consistency normal and normal palpation Bimanual Exam- Adnexa, other: normal adnexae, no masses and no tenderness Assessment & Plan Assessment & Plan (1) Well woman exam: Code(s): Z01.419 - Encounter for gynecological examination (general) (routine) without abnormal findings Category: Medical Plan: Co testing done since last Pap smear was 3 years ago without HPV although the patient is above the age of 67 Counseled the patient about the recommended dietary allowance of 1200 mg of Calcium & 800 IU of vitamin D. Instructions given the patient to schedule next screening Mammogram in 01/10. The patient is scheduled for screening colonoscopy in 08/09. The patient was instructed to perform monthly self-breast exams and to schedule an annual exam in a year; All questions answered and the patient verbalized understanding. (2) Breast lump on left side at 3 o'clock position: Comment: 5 cm from the nipple Code(s): N63.25 - Unspecified lump in the left breast, overlapping quadrants Category: Medical Plan: Discussed with the patient the finding on Breast exam (breast lump) .The differential diagnosis includes but not limited to lump/cyst/pre cancer/cancer or dense breast tissue. The work up includes breast US and diagnostic mammogram and referred the patient for surgical breast consult. Orders: Orders US breast LT complete Today N63.25 - Unspecified lump in the left breast, overlapping quadrants MM tomosynthesis diagnostic LT Today N63.25 - Unspecified lump in the left breast, overlapping quadrants Referrals General Surgery Referral N63.25 - Unspecified lump in the left breast, overlapping quadrants Coding Level of Care Code Est Pt Prev Care >65y(94031) Diagnoses Well woman exam Z01.419 Breast lump on left side at 3 o'clock position N63.25
[2023-06-10 10:18] VITALS: BP 122/76; BMI 30.1
== END 2023-06-10 10:57 | disposition home or self-care (01) ==
LOC: HO.HWS 09:58
PROVIDERS: PCP Internal Medicine; Visit Provider Obstetrics & Gynecology
DX: Z01.419 Encounter for gynecological examination (general) (routine) without abnormal findings (principal); N63.25 Unspecified lump in the left breast, overlapping quadrants
CPT/HCPCS: 99397

== ENCOUNTER 2023-06-26 13:35 | Outpatient (REF) | payer MEDICARE, SELFPAY ==
--- NOTE | ~2023-06-26 | US_ITS ---
EXAMINATION: MM DIAGNOSTIC DIGITAL BREAST TOMOSYNTHESIS, LEFT US BREAST LIMITED, LEFT CLINICAL INFORMATION: Left breast 3:00 palpable lump and pain, x1 year. COMPARISON: Mammography: 12/31/2022, 12/20/2021, 10/02/2020. TECHNIQUE: Digital breast tomosynthesis is performed in both the craniocaudal and mediolateral oblique views along with computer-aided detection (CAD). Synthesized 2D images are generated from the tomosynthesis. FINDINGS: There are scattered areas of fibroglandular density (ACR BI-RADS breast composition Category b). There are no suspicious masses, suspicious grouped calcifications, or areas of architectural distortion in either breast. The parenchymal pattern is stable from prior exams. No abnormality is seen on mammography subjacent to the BB marker in the left breast. ULTRASOUND: CLINICAL INFORMATION: 3:00 palpable lump and pain x1 year. COMPARISON: Ultrasound left breast 12/20/2021. TECHNIQUE: Targeted sonographic evaluation was performed using a high frequency linear transducer. Attention to the region of pain left breast was given, upper outer quadrant. Selected archived documentation. FINDINGS: LEFT BREAST: There is a mixture of fatty and fibroglandular tissue. No suspicious mass is seen. There is no pathologic acoustic shadowing. There is no axillary adenopathy. US/US breast LT limited mamm only IMPRESSION: There are no findings suspicious for malignancy in the left breast. No sonographic or mammographic abnormality in the region of palpable concern. Recommend clinical management. Otherwise, recommend the patient resume routine annual screening. OVERALL ASSESSMENT: Mammography: BI-RADS 1 - Negative Ultrasound: BI-RADS 1 - Negative RECOMMENDATION: 1. Patient should be managed based on the clinical impression. 2. Otherwise, routine annual screening mammography. This patient's information was entered into a reminder system with a target due date for their next mammogram.
== END 2023-06-26 13:36 | disposition home or self-care (01) ==
LOC: HO.MAMMO 13:35
PROVIDERS: PCP Internal Medicine; Visit Provider Internal Medicine
DX: N63.25 Unspecified lump in the left breast, overlapping quadrants (principal)
CPT/HCPCS: 76642; 77061; 77065

== ENCOUNTER → 2023-06-26 14:30 | Outpatient (BNV) | payer MEDICARE, SELFPAY | PROVIDERS: PCP Internal Medicine; Visit Provider Radiology Diagnostic Radiology | DX: N63.25 Unspecified lump in the left breast, overlapping quadrants (principal) | CPT/HCPCS: 76642; 77065; G0279 ==

== ENCOUNTER 2023-07-14 08:53 | Outpatient (AMB) | payer MEDICARE, SELFPAY ==
--- NOTE | 2023-07-14 08:53 | A.OFFVIS_ITS ---
Vital Signs 07/14/23 09:05 Height 5 ft 3 in Weight 168 lb BMI 29.8 BP 187/79 H Blood Pressure Location Lt brachial Position Sitting Pulse 81 Intake Visit Reasons: Lump~ Lt breast Intake Note: Patient is seen in office for evaluation and treatment of a lump of the left breast. Pt c/o:pulsating pain in the left breast near the axilla for yrs, does not feel a lump, denies any prior breast concerns mm & us: 06/26/23 Product Technology Scientist Required: Yes Product Technology Scientist Language: Operating Engineer Apprentice Name: Thalia TERRELL Information Interpreted: non-clinical & clinical Horse Racing Analyst: Horse Racing Analyst Present Accompanied by: Self / Same As Patient Allergies No Known Allergies Allergy (Verified 07/14/23 09:03) Medication List - Last Reconciled 07/14/23 by Narayan Stein MD bisacodyl (Dulcolax (bisacodyl)) 10 mg (2 x 5 mg) PO BEDTIME 2 days cholecalciferol (vitamin D3) 50 mcg PO DAILY 90 days diclofenac sodium 75 mg PO BID 90 days famotidine 40 mg PO DAILY oxybutynin chloride ER 10 mg PO DAILY peg 3350-electrolytes 236-22.74-6.74 -5.86 gram (Golytely) 240 mL PO Q10M 1 day rosuvastatin 10 mg PO DAILY HPI Comments Details: 68-year-old female patient with complaints of pain and throbbing in the left breast upper outer quadrant, roughly the 3 o'clock position. On recent physical examination a mass was palpable at approximately the 3 o'clock position, 5 cm from the nipple. She subsequently underwent left breast mammogram and left ult rasound. This revealed no sonographic or mammographic evidence of malignancy or other suspicious findings (BI-RADS 1). She denies any palpable mass on her self examination. Her family history is significant for a sister developing breast cancer at the age of 50. She also has a paternal aunt with history of breast cancer who subsequently underwent mastectomy. Her father has a history of esophageal cancer. She is with menarche at the age of 15. She breastfed for short period of time but reports her milk was not adequate. [facility] Medical History Physical exam Abnormal ultrasound of endometrium Urinary urgency Thickened endometrium Left flank pain Mass of right lower leg Varicose veins of right lower extremity with inflammation Left lower quadrant abdominal pain Multinodular goiter (nontoxic) Screening for malignant neoplasm of cervix Urinary incontinence Women's annual routine gynecological examination Heartburn Menopause GERD (gastroesophageal reflux disease) Obesity (BMI 30.0-34.9) Alopecia Varicose veins of lower extremities with inflammation Family history of breast cancer in sister Breast cancer screening, high risk patient Vitamin D deficiency Mixed dyslipidemia Hip pain, bilateral Metacarpophalangeal joint pain of right hand Shortness of breath on exertion Dyslipidemia (high LDL; low HDL) Arthritis Claudine's disease Surgical History Hx of section History of ear surgery Hx of cataract surgery Hx of shoulder surgery Family History Paternal Aunt Breast cancer Sister Breast cancer, Onset Age: 50 Father Esophageal cancer Maternal Uncle Cancer Social History Household Members Other:: daughter Housing: Apartment Alcohol intake: never Patient Tobacco Use Status: Never used Tobacco e-Cigarette/Vaping Use: Never Used Second Hand Smoke Exposure: No service: No Current occupational status: retired Sexual orientation: Straight/Heterosexual Gender identity: Female Cognitive needs: No Hearing needs: No Vision needs: Yes Female Reproductive History Menstrual Age of Menarche: 15 Review of Systems Const All systems reviewed & are unremarkable except as noted in HPI and below Denies chills, Denies fever(s), Denies headache(s), Denies poor appetite and Denies weakness ENT Denies headache(s) Card Denies chest pain, Denies irregular heart rhythm, Denies palpitations and Denies dyspnea Resp Denies cough, Denies excessive phlegm production and Denies dyspnea GI Denies abdominal pain, Denies bloating, Denies change in bowel habits, Denies constipation, Denies heartburn, Denies diarrhea, Denies nausea and Denies vomiting Denies urinary frequency and Denies nipple discharge Musc Denies back pain, Denies muscle weakness and Denies numbness Skin/Breast Denies breast swelling, Denies breast skin changes, Reports breast pain, Denies breast mass, Denies changing lesions, Denies nipple discharge and Denies unusual bruising Neuro Denies headache(s), Denies numbness, Denies paresthesias and Denies weakness Psych Denies anxiety and Denies depression Endo Denies palpitations Bandar/Lymph Denies lymphadenopathy Physical Exam Vital Signs: Last Vital Signs Pulse 81 07/14/23 09:05 BP 187/79 H 07/14/23 09:05 BMI result Body Mass Index 29.8 Const General: cooperative and no acute distress Nutritional Appearance: well nourished Orientation/consciousness: patient oriented x3 Limitations: no limitations HEENT Head: Yes normocephalic and Yes atraumatic Ears: hearing grossly normal bilaterally Chest Other: Bilateral dense breast tissue especially in the upper outer quadrants. Bilateral areas of tenderness throughout the breast. Left breast: No skin change, no nipple retraction, no nipple discharge, no palpable discrete mass with special attention to the upper outer quadrant, no enlarged lymph nodes. Right breast: No skin change, no nipple retraction, no nipple discharge, no discrete palpable mass, no enlarged lymph nodes Resp Effort & Inspection: normal respiratory effort, no audible wheezes, no cough and no respiratory distress Cardio Jugular venous distension: no JVD GI Inspection: Yes normal to inspection Skin Other: Warm, dry, no rash Neuro General: patient oriented x3 Extrem General: Yes no clubbing, cyanosis or edema Assessment & Plan Assessment & Plan (1) Breast lump on left side at 3 o'clock position: Comment: 5 cm from the nipple Code(s): N63.25 - Unspecified lump in the left breast, overlapping quadrants Category: Medical (2) Family history of breast cancer in sister: Code(s): Z80.3 - Family history of malignant neoplasm of breast Category: Medical Plan 68-year-old female patient presenting with a strong family history of breast cancer found to have a possible mass in the left breast at the 3 o'clock position. Subsequent mammogram and ultrasound revealed no suspicious findings. Examination today revealed dense breast tissue bilaterally but no discrete mass in the 3 o'clock position. We did discussed genetic testing given her strong family history of breast cancer. After discussion of the procedure, risks and alternatives, she consents to the genetic testing. She will return approximately 5-6 weeks to review the results. Coding Level of Care Code New Pt Level 4 (19816) Diagnoses Breast lump on left side at 3 o'clock position N63.25 Family history of breast cancer in sister Z80.3
[2023-07-14 09:05] VITALS: BP 187/79; PULSE 81; BMI 29.8
== END 2023-07-14 09:34 | disposition home or self-care (01) ==
PROVIDERS: PCP Internal Medicine; Referring Provider Obstetrics & Gynecology; Visit Provider Surgery
DX: N63.25 Unspecified lump in the left breast, overlapping quadrants (principal); Z80.3 Family history of malignant neoplasm of breast
CPT/HCPCS: 99204

== ENCOUNTER → 2023-07-14 08:53 | Outpatient (BNVA) | payer MEDICARE, SELFPAY | PROVIDERS: PCP Internal Medicine; Referring Provider Obstetrics & Gynecology; Visit Provider Surgery | DX: N63.25 Unspecified lump in the left breast, overlapping quadrants (principal); Z80.3 Family history of malignant neoplasm of breast | CPT/HCPCS: 99202 ==

== ENCOUNTER → 2023-08-25 10:14 | Outpatient (BNVA) | payer MEDICARE, SELFPAY | PROVIDERS: PCP Internal Medicine; Visit Provider Surgery ==

== ENCOUNTER 2023-09-22 08:20 | Outpatient (REF) | payer MEDICARE, SELFPAY ==
[2023-09-22 11:21] LABS: Thyroid Stimulating Hormone 1.48 uIU/mL (0.32-4.0); Vitamin D 25-OH Total 49.6 ng/mL (>30)
[2023-09-23 18:13] LABS: Thyroglobulin Antibodies <1 IU/mL (< or = 1); Thyroid Peroxidase Antibodies 205 IU/mL (<9)
== END 2023-09-22 08:21 | disposition home or self-care (01) ==
LOC: HO.LAB 08:20
PROVIDERS: PCP Internal Medicine; Visit Provider Internal Medicine
DX: E55.9 Vitamin D deficiency, unspecified (principal); E04.2 Nontoxic multinodular goiter
CPT/HCPCS: 36415; 82306; 84443; 86376; 86800

== ENCOUNTER 2023-09-29 10:13 | Outpatient (AMB) | payer MEDICARE, SELFPAY ==
--- NOTE | 2023-09-29 10:21 | MHC.PC.OV ---
Vital Signs 09/29/23 10:25 Height 5 ft 3 in Weight 169 lb BMI 29.9 BP 130/80 Blood Pressure Location Lt brachial Position Sitting Intake Visit Reasons: 6mth f/u Intake Note: Patient here for a 6 month follow up Iron Launder Operator Required: No Accompanied by: Self / Same As Patient Allergies No Known Allergies Allergy (Verified 09/29/23 10:31) Medication List - Last Reconciled 09/29/23 by Heather Hernandez MD bisacodyl (Dulcolax (bisacodyl)) 10 mg (2 x 5 mg) PO BEDTIME 2 days cholecalciferol (vitamin D3) 50 mcg PO DAILY 90 days diclofenac sodium 75 mg PO BID 90 days famotidine 40 mg PO DAILY oxybutynin chloride ER 10 mg PO DAILY peg 3350-electrolytes 236-22.74-6.74 -5.86 gram (Golytely) 240 mL PO Q10M 1 day rosuvastatin 10 mg PO DAILY Tobacco use date assessed: 03/31/23 Fall risk assessment: No Falls in past year Last assessed Fall Risk: 09/29/23 Dental Screening Dental Screen Date: 03/31/23 HPI HPI Comments History of Present Illness Details This is a 68-year-old female with Claudine's disease, dyslipidemia, vitamin-D deficiency and insomnia that comes today for follow-up on her conditions. TSH normal. Cholesterol well controlled with statins. Vitamin-D normal with supplements. She complains of some insomnia and I will start her on trazodone to be used as needed for this matter. She is overweight with a BMI of 29.9 and was advised to do diet and exercise. [facility] Medical History (Updated 09/29/23 @ 10:43 by Heather Hernandez MD) Physical exam Abnormal ultrasound of endometrium Urinary urgency Thickened endometrium Left flank pain Mass of right lower leg Varicose veins of right lower extremity with inflammation Left lower quadrant abdominal pain Multinodular goiter (nontoxic) Screening for malignant neoplasm of cervix Urinary incontinence Women's annual routine gynecological examination Heartburn Menopause GERD (gastroesophageal reflux disease) Obesity (BMI 30.0-34.9) Alopecia Varicose veins of lower extremities with inflammation Family history of breast cancer in sister Breast cancer screening, high risk patient Vitamin D deficiency Mixed dyslipidemia Hip pain, bilateral Metacarpophalangeal joint pain of right hand Shortness of breath on exertion Dyslipidemia (high LDL; low HDL) Arthritis Claudine's disease Surgical History Hx of section History of ear surgery Hx of cataract surgery Hx of shoulder surgery Family History Paternal Aunt Breast cancer Sister Breast cancer, Onset Age: 50 Father Esophageal cancer Maternal Uncle Cancer Social History Household Members Other:: daughter Housing: Apartment Alcohol intake: never Patient Tobacco Use Status: Never used Tobacco e-Cigarette/Vaping Use: Never Used Second Hand Smoke Exposure: No service: No Current occupational status: retired Sexual orientation: Straight/Heterosexual Gender identity: Female Cognitive needs: No Hearing needs: No Vision needs: Yes Female Reproductive History Menstrual Age of Menarche: 15 Questionnaire Thrive Questionnaire Date Thrive assessed: 03/31/23 ROBIN-7 AMB Questionnaire ROBIN-7 Date ROBIN - 7 assessed: 03/31/23 Source: Developed by Drs. Ricardo Davenport, Nicole Landrum, Gallo Medina and colleagues, with an educational tita from [employer]. Review of Systems Const All systems reviewed & are unremarkable except as noted in HPI and below Card Denies chest pain at rest, Denies chest pain with activity, Denies edema, Denies irregular heart rhythm, Denies claudication, Denies dyspnea, Denies dyspnea on exertion, Denies orthopnea, Denies paroxysmal nocturnal dyspnea and Denies slow heart rate Resp Denies cough, Denies dyspnea and Denies dyspnea on exertion GI Denies abdominal pain, Denies change in bowel habits, Denies excessive flatus, Denies nausea and Denies vomiting Denies urinary incontinence, Denies urinary hesitancy and Denies urinary urgency Musc Denies atrophy, Denies deformity and Denies limited range of motion Physical exam (Primary Care) Vital Signs: Last Vital Signs BP 130/80 09/29/23 10:25 BMI result Body Mass Index 29.9 BMI Assessment/Plan discussion: High BMI High, discussed plan: lifestyle, weight reduction, dietary and physical activity Tobacco/Smoking Status: Tobacco use Status Tobacco use date assessed 03/31/23 09/29/23 10:28 Patient Tobacco Use Status Never used Tobacco 09/29/23 10:28 e-Cigarette/Vaping Use Never Used 09/29/23 10:28 Thrive Assessment: Date of Thrive Assessment Date Thrive assessed 03/31/23 09/29/23 10:28 Resp Effort & Inspection: normal respiratory effort Auscultation: clear to auscultation bilaterally Cardio Jugular venous distension: no JVD Rate: regular rate Rhythm: regular rhythm Heart sounds: S1 normal heart sound present and S2 normal heart sound present Neuro General: no focal motor deficits Extrem General: Yes full ROM Assessment and Plan Assessment & Plan (1) Claudine's disease: Comment: ff'd at [facility] endocrinology, Dr Shama Jefferson Code(s): E06.3 - Autoimmune thyroiditis Plan: Monitor TSH. (2) Dyslipidemia (high LDL; low HDL): Code(s): E78.5 - Hyperlipidemia, unspecified Plan: Continue statins. (3) Vitamin D deficiency: Code(s): E55.9 - Vitamin D deficiency, unspecified Plan: Continue vitamin-D supplements. (4) Insomnia: Code(s): G47.00 - Insomnia, unspecified Qualifiers: Insomnia type: primary Qualified Code(s): F51.01 - Primary insomnia Plan: Start trazodone. Orders: Orders Lipid Panel 6 Months E78.5 - Hyperlipidemia, unspecified Vitamin D 25-OH Total 6 Months E55.9 - Vitamin D deficiency, unspecified Comprehensive [place]. Panel Fast 6 Months K21.9 - Gastro-esophageal reflux disease without esophagitis Medications: New trazodone 50 mg PO BEDTIME 30 days PRN 30 tabs 3RF sleep Refilled cholecalciferol (vitamin D3) 50 mcg PO DAILY 90 days 90 caps 1RF rosuvastatin 10 mg PO DAILY 90 tabs 1RF E78.2 - Mixed hyperlipidemia Coding Level of Care Code Est Pt Level 4 (12498) Complex EM visit Add On G2211 Diagnoses Claudine's disease E06.3 Dyslipidemia (high LDL; low HDL) E78.5 Vitamin D deficiency E55.9 Primary insomnia F51.01 Insomnia type: primary Time Spent (min) 20
[2023-09-29 10:25] VITALS: BP 130/80; BMI 29.9
== END 2023-09-29 10:40 | disposition home or self-care (01) ==
PROVIDERS: PCP Internal Medicine; Visit Provider Internal Medicine
DX: E06.3 Autoimmune thyroiditis (principal); E78.5 Hyperlipidemia, unspecified; E55.9 Vitamin D deficiency, unspecified; F51.01 Primary insomnia
CPT/HCPCS: 99214; G2211

== ENCOUNTER 2023-11-19 09:34 | Outpatient (AMB) | payer MEDICARE, SELFPAY ==
--- NOTE | 2023-11-19 09:36 | MHC.OFFVIS ---
Vital Signs 11/19/23 09:39 Height 5 ft 3 in Weight 167 lb 8.821 oz BMI 29.7 BP 138/64 Blood Pressure Location Lt brachial Position Sitting Pulse 77 Intake Visit Reasons: immunologist/dr wilson/palpitations Traffic Workforce Representative Required: Yes Traffic Workforce Representative Name: [place]/[id number]/slovak Accompanied by: Self / Same As Patient Allergies No Known Allergies Allergy (Verified 09/29/23 10:31) Medication List - Last Reconciled 11/19/23 by Marc Lama MD bisacodyl (Dulcolax (bisacodyl)) 10 mg (2 x 5 mg) PO BEDTIME 2 days cholecalciferol (vitamin D3) 50 mcg PO DAILY 90 days diclofenac sodium 75 mg PO BID 90 days diclofenac sodium 1% (Aleve (diclofenac)) 2 grams topical QID PRN 30 days famotidine 40 mg PO DAILY oxybutynin chloride ER 10 mg PO DAILY peg 3350-electrolytes 236-22.74-6.74 -5.86 gram (Golytely) 240 mL PO Q10M 1 day rosuvastatin 10 mg PO DAILY trazodone 50 mg PO BEDTIME PRN 30 days HPI Comments Details: Julia is here for cardiac consultation. No known coronary disease or myocardial infarction or cardiomyopathy. She describes various symptoms. She feels that her heart is fluttering frequently. She has good days and bad days and this can happen essentially any time. She also feels short of breath with activity but sometimes she also feels short of breath at rest. Nonspecific chest discomfort but again difficult to clarify in spite of refuge manager. [facility]ENDING S[facility] TO [facility] Medical History Physical exam Abnormal ultrasound of endometrium Urinary urgency Thickened endometrium Left flank pain Mass of right lower leg Varicose veins of right lower extremity with inflammation Left lower quadrant abdominal pain Multinodular goiter (nontoxic) Screening for malignant neoplasm of cervix Urinary incontinence Women's annual routine gynecological examination Heartburn Menopause GERD (gastroesophageal reflux disease) Obesity (BMI 30.0-34.9) Alopecia Varicose veins of lower extremities with inflammation Family history of breast cancer in sister Breast cancer screening, high risk patient Vitamin D deficiency Mixed dyslipidemia Hip pain, bilateral Metacarpophalangeal joint pain of right hand Shortness of breath on exertion Dyslipidemia (high LDL; low HDL) Arthritis Claudine's disease Surgical History Hx of section History of ear surgery Hx of cataract surgery Hx of shoulder surgery Family History Paternal Aunt Breast cancer Sister Breast cancer, Onset Age: 50 Father Esophageal cancer Maternal Uncle Cancer Social History Household Members Other:: daughter Housing: Apartment Alcohol intake: never Patient Tobacco Use Status: Never used Tobacco e-Cigarette/Vaping Use: Never Used Second Hand Smoke Exposure: No service: No Current occupational status: retired Sexual orientation: Straight/Heterosexual Gender identity: Female Cognitive needs: No Hearing needs: No Vision needs: Yes Female Reproductive History Menstrual Age of Menarche: 15 Review of Systems Const Denies chills, Denies daytime sleepiness, Denies fatigue, Denies fever(s), Denies poor appetite, Denies snoring, Denies stops breathing during sleep, Denies weakness, Denies weight gain and Denies weight loss Eyes Denies loss of vision ENT Denies dizziness and Denies hearing loss Card Denies chest pain, Denies irregular heart rhythm, Denies claudication, Denies leg edema, Denies lightheadedness, Denies palpitations, Denies dyspnea on exertion and Denies orthopnea Resp Denies cough, Denies excessive phlegm production, Denies dyspnea on exertion, Denies snoring and Denies wheezing GI Denies abdominal pain, Denies hematochezia, Denies change in bowel habits, Denies nausea and Denies vomiting Denies urinary frequency and Denies dysuria Musc Denies arthralgias, Denies muscle weakness, Denies numbness and Denies other Skin/Breast Denies nail changes and Denies rash Neuro Denies Abnormal speech present, Denies dizziness, Denies loss of vision, Denies memory loss, Denies numbness and Denies weakness Psych Denies depression and Denies memory loss Endo Denies fatigue and Denies palpitations Bandar/Lymph Denies easy bruising Aller/Immun Denies wheezing Physical Exam Vital Signs: Last Vital Signs Pulse 77 11/19/23 09:39 BP 138/64 11/19/23 09:39 BMI result Body Mass Index 29.7 Const General: comfortable and no acute distress Orientation/consciousness: patient oriented x3 HEENT Other: Unremarkable Head: Yes normal to inspection Neck Neck: Yes normal visual inspection Chest Chest palpation & inspection: normal inspection of the chest Resp Auscultation: clear to auscultation bilaterally Cardio Palpation: normal PMI Heart sounds: S1 normal heart sound present, S2 normal heart sound present, no gallops, no murmurs and no rubs GI Palpation (GI): Soft to palpation Back/Spine/Pelvis Other: unremarkable Skin General skin exam: no rashes or lesions noted Neuro General: patient oriented x3 Speech: No Abnormal speech present Extrem General: Yes normal to inspection Psych Mental Status: mental status grossly normal Office Procedures EKG Details: EKG with underlying sinus rhythm at 77/Min; nonspecific ST-T changes in the inferior and anterolateral [place] [id number], Complete Assessment & Plan Assessment & Plan (1) Palpitations: Code(s): R00.2 - Palpitations Category: Medical (2) Shortness of breath: Code(s): R06.02 - Shortness of breath Category: Medical (3) Abnormal EKG: Code(s): R94.31 - Abnormal electrocardiogram [ECG] [EKG] Category: Medical Plan EKG with some nonspecific changes and not clear if related hypertension/LVH. She has had high blood pressures in the past but seems somewhat better now. Has various symptoms including palpitations, shortness of breath and possible chest pressure but not clear. We will get a comprehensive workup including echocardiogram, stress test and Holter. Follow-up after the above. Orders: Orders CA echo transthoracic complete Today R00.2 - Palpitations ECG 7 day holter monitor Today R00.2 - Palpitations CA echo stress exercise Today R00.2 - Palpitations, R07.2 - Precordial pain Coding Level of Care Code New Pt Level 4 (66300) Diagnoses Palpitations R00.2 Shortness of breath R06.02 Abnormal EKG R94.31 CPT Codes EKG - CPT: 32488-[id number], Complete ([id number])
[2023-11-19 09:39] VITALS: BP 138/64; PULSE 77; BMI 29.7
== END 2023-11-19 10:07 | disposition home or self-care (01) ==
PROVIDERS: PCP Internal Medicine; Visit Provider Internal Medicine
DX: R00.2 Palpitations (principal); R06.02 Shortness of breath; R94.31 Abnormal electrocardiogram [ECG] [EKG]
CPT/HCPCS: 93010; 99204

== ENCOUNTER → 2023-11-19 09:34 | Outpatient (BNVA) | payer MEDICARE, SELFPAY | PROVIDERS: PCP Internal Medicine; Visit Provider Internal Medicine | DX: R00.2 Palpitations (principal); R06.02 Shortness of breath; R94.31 Abnormal electrocardiogram [ECG] [EKG] | CPT/HCPCS: 93005; 99202 ==

== ENCOUNTER → 2024-01-04 09:06 | Outpatient (REF) | payer MEDICARE, SELFPAY ==
--- NOTE | 2024-01-04 09:10 | HM_ITS ---
Conclusion: 1. Patient was monitored for total period of 7 days 2. Baseline was normal sinus rhythm with average heart rate of 73 beats per minute 3. No significant pauses noted 4. Rare ectopy noted 5. Patient marked the counter 2 times correlating with sinus rhythm MTDD
--- NOTE | 2024-01-04 09:16 | CA_ITS ---
Transthoracic Echocardiogram Patient (Last, First, Middle): Julia Jimenez, Gender: Female Date of : 1955 Age: 68 Procedure Date: 01/04/2024 Procedure Type: Transthoracic Echocardiogram Location: OP Height: 160.02 cm Weight: 76.2 kg BSA: 1.80 m2 Heart Rate: bpm BP: 156 / 70 mmHg Parks Recreation Coordinator: KULWANT Referring MD: Marc Lama MD Skein Winder: Vikash Lucas MD Symptoms: R00.2 - Palpitations Study Quality: Adequate ECG Rhythm: Sinus Conclusions: - 1. Normal LV ejection fraction of 60 65% with impaired relaxation filling pattern 2. Mild aortic regurgitation 3. Normal RV systolic pressure 4. No gross pericardial effusion Findings Left Ventricle Normal left ventricular size, thickness, and systolic function. The visually estimated ejection fraction is between 60-65%. Spectral Doppler is indicative of an impaired relaxation filling pattern. E/E prime ratio is between 8 and 15 consistent with indeterminate filling pressures. Peak GLS is -18.7%, within normal limits. Right Ventricle Normal right ventricular cavity size and systolic function. Atria Both atria are normal in size. There is no evidence of interatrial shunt. Aortic Valve The aortic valve was not well visualized. There is no aortic valve stenosis. There is mild aortic valve regurgitation. Mitral Valve Normal mitral valve structure and function. There is trace mitral valve regurgitation. There is no mitral valve stenosis. Pulmonic Valve The pulmonic valve is likely normal. There is mild pulmonic valve regurgitation. Tricuspid Valve Normal tricuspid valve structure. There is trace tricuspid valve regurgitation. The right ventricular systolic pressure is normal. The right ventricular systolic pressure is 19 mmHg. Normal right atrial pressure. There is no evidence of pulmonary hypertension. Great Vessels All visible segments of the aorta are normal in size. The pulmonary artery was not well visualized. There is no dilatation of the ascending aorta measuring 2.80 cm. Venous The inferior vena cava is normal in size and collapses greater than 50% with inspiration. Pericardium/Pleural There is no evidence of pericardial effusion. Prior Study Comparison No prior study available for comparison. Measurements 2D Linear Measurements IVSd: 1.04 0.6-0.9/0.6-1.0 cm LVIDd: 3.78 3.9-5.3/4.2-5.9 cm LVIDd Index: 2.10 2.4-3.2/2.2-3.1 cm/m2 LVIDs: 2.03 2.0-3.6 cm LVPWd: 0.84 0.7-1.1 cm LA Diam: 3.30 2.7-3.8/3.0-4.0 cm LAIDs Index: 1.83 1.5-2.3 cm/m2 LV Mass: 132.20 67-162/88-224 g LV Mass Index: 73.45 43-95/49-115 g/m2 LVOT Diam: 1.90 3.0+(-)1.3 cm 2D Systolic Function EF 4C: 61.10 >55% EF 2C: 66.90 >55% EF BiP: 65.00 >55% Mitral Valve MV Pk E: 0.81 MV PK A: 0.77 MV Decel Time: 194.00 E/A: 1.10 E'Lateral: 8.49 E'Medial: 6.74 E/E' Med: 12.00 E/E' Lat: 9.50 PHT: 57.00 MVA PHT: 3.86 Decel [place]: 4.18 Aortic Valve AoV Pk Marquez: 1.27 AoV Mn Marquez: 0.91 AoV VTI: 0.31 AoV Pk Grad: 6.00 Aov Mn Grad: 4.00 FERNANDO Cont.VTI: 2.21 AI Pk Marquez: 3.66 AI [place]: 2.30 LVOT LVOT Pk Marquez: 1.02 LVOT Mn Marquez: 0.73 LVOT VTI: 0.24 LVOT Pk Grad: 4.00 LVOT Mn Grad: 2.00 LVOT Diam: 1.90 LVOT Area: 2.84 Diastolic Function MV Pk E: 0.81 MV Pk A: 0.77 E/A: 1.10 E'Medial: 6.74 E/E' Med: 12.00 E' Laterial: 8.49 E/E' Lat: 9.50 Right Ventricle TAPSE (mm): 26.90 TVS' Marquez: 13.70 Tricuspid Valve TR Pk Marquez: 2.02 TR Pk Grad: 16.00 RA Press: 3.00 RVSP: 19.00 Great Vessels Aorta Sinus of Valsalva: 2.89 2.0-3.[address] [place]: 2.05 1.7-3.4 cm Ao Asc: 2.80 2.1-3.4 cm Ao Arch: 3.10 Updated in Other Vendor System with Status of Final Vikash Lucas MD electronically signed on 01/04/2024 3:48:23 PM with status of Final
== END ==
LOC: HO.CARD 09:06
PROVIDERS: PCP Internal Medicine; Visit Provider Internal Medicine
DX: R07.2 Precordial pain (principal); R00.2 Palpitations
CPT/HCPCS: 93242; 93306; 93356

== ENCOUNTER → 2024-01-04 09:16 | Outpatient (BNV) | payer MEDICARE, SELFPAY | PROVIDERS: PCP Internal Medicine; Visit Provider Internal Medicine Cardiovascular Disease | DX: R00.1 Bradycardia, unspecified (principal) | CPT/HCPCS: 93244; 93306; 93356 ==

== ENCOUNTER → 2024-01-21 10:27 | Outpatient (REF) | payer MEDICARE, SELFPAY ==
--- NOTE | 2024-01-21 10:33 | CA_ITS ---
Acquisition Time: 2024-01-21 11:39:59 Total Exercise Time: 00:05:30 Test Indications: ABN EKG, SOB, CP Medications: SEE H Protocol: GUSTAVO Max HR: 148 BPM 96% of Pred: 153 BPM Max BP: 150/070 mmHG Max Work Load: 7.0 METS Exercise Stress Test with exercise 5 mins 30 secs of Gustavo Protocol, achieving 96% MPHR, with mild SOB, no chest discomfort, without any arrythmias, with normotensive response to exercise. Horizontal ST depression inferiorly and laterally meeting criteria for ischemia, slowly improving in recovery. Echo images obtained by tech at rest and post peak exercise. Definity used by tech. Breathing back to baseline in recovery. Test reviewed with Dr. Myers. Referred By: Marc Lama Overread By: CESAR DE LA CRUZ
== END ==
LOC: HO.CARD 10:27
PROVIDERS: PCP Internal Medicine; Visit Provider Internal Medicine
DX: R07.2 Precordial pain (principal); R00.0 Tachycardia, unspecified
CPT/HCPCS: 93350; Q9957

== ENCOUNTER → 2024-01-21 10:33 | Outpatient (BNV) | payer MEDICARE, SELFPAY | PROVIDERS: PCP Internal Medicine; Visit Provider Nurse Practitioner Family | DX: I51.89 Other ill-defined heart diseases (principal); R06.02 Shortness of breath | CPT/HCPCS: 93016; 93018; 93350; 93352 ==

== ENCOUNTER 2024-02-08 13:59 | Outpatient (AMB) | payer MEDICARE, SELFPAY ==
[2024-02-08 14:00] VITALS: BP 150/72; PULSE 75; BMI 30.2
--- NOTE | 2024-02-08 14:00 | A.OFFVIS_ITS ---
Vital Signs 02/08/24 14:00 Height 5 ft 3 in Weight 170 lb 10.205 oz BMI 30.2 BP 150/72 H Blood Pressure Location Lt brachial Position Sitting Pulse 75 Pulse Source Pulse Oximeter Intake Visit Reasons: F/up after Testing-echo/holter/stress Insole Cementer Required: Yes Insole Cementer Language: Promotions Coordinator Name: voice villegas [id number] Allergies No Known Allergies Allergy (Verified 02/08/24 14:03) Medication List - Last Reconciled 02/08/24 by Augusta Donald, CASH CONTROL SPECIALIST-C bisacodyl (Dulcolax (bisacodyl)) 10 mg (2 x 5 mg) PO BEDTIME 2 days cholecalciferol (vitamin D3) 50 mcg PO DAILY 90 days diclofenac sodium 75 mg PO BID 90 days diclofenac sodium 1% (Aleve (diclofenac)) 2 grams topical QID PRN 30 days famotidine 40 mg PO DAILY oxybutynin chloride ER 10 mg PO DAILY peg 3350-electrolytes 236-22.74-6.74 -5.86 gram (Golytely) 240 mL PO Q10M 1 day rosuvastatin 10 mg PO DAILY HPI HPI F/up after Testing-echo/holter/stress: Details: Julia is a 69-year-old female with past medical history of hypertension, hyperlipidemia who reported heart palpitations and shortness of breath. A Holter monitor, echocardiogram and stress echocardiogram were done and she now presents for follow-up. Today she reports that she still has heart palpitations. She describes it as h er heart beating fast and fluttering at times. She does not believe she felt any when she was wearing the heart monitor. She says last week she woke up in the night with her heart beating fast and it took 2 hours for it to go back to normal. She drank water and tried to relax and believes that it gradually improved. She has some shortness with activity which is overall unchanged. No PND, orthopnea or edema. No chest discomfort at rest or with activity. No lightheadedness, presyncope, syncope, falls. [facility] Medical History Physical exam Abnormal ultrasound of endometrium Urinary urgency Thickened endometrium Left flank pain Mass of right lower leg Varicose veins of right lower extremity with inflammation Left lower quadrant abdominal pain Multinodular goiter (nontoxic) Screening for malignant neoplasm of cervix Urinary incontinence Women's annual routine gynecological examination Heartburn Menopause GERD (gastroesophageal reflux disease) Obesity (BMI 30.0-34.9) Alopecia Varicose veins of lower extremities with inflammation Family history of breast cancer in sister Breast cancer screening, high risk patient Vitamin D deficiency Mixed dyslipidemia Hip pain, bilateral Metacarpophalangeal joint pain of right hand Shortness of breath on exertion Dyslipidemia (high LDL; low HDL) Arthritis Claudine's disease Surgical History Hx of section History of ear surgery Hx of cataract surgery Hx of shoulder surgery Family History Paternal Aunt Breast cancer Sister Breast cancer, Onset Age: 50 Father Esophageal cancer Maternal Uncle Cancer Social History Household Members Other:: daughter Housing: Apartment Alcohol intake: never Patient Tobacco Use Status: Never used Tobacco e-Cigarette/Vaping Use: Never Used Second Hand Smoke Exposure: No service: No Current occupational status: retired Sexual orientation: Straight/Heterosexual Gender identity: Female Cognitive needs: No Hearing needs: No Vision needs: Yes Female Reproductive History Menstrual Age of Menarche: 15 Review of Systems Const All systems reviewed & are unremarkable except as noted in HPI and below ENT Denies dizziness Card Denies chest pain, Denies chest pain at rest, Denies chest pain with activity, Reports rapid heart rate, Denies pedal edema, Denies edema, Denies leg edema, Denies lightheadedness, Denies palpitations, Denies dyspnea, Denies dyspnea on exertion and Denies orthopnea Resp Denies cough, Denies dyspnea and Denies dyspnea on exertion GI Denies hematochezia and Denies change in stool character Musc Denies abnormal gait, Denies limited range of motion, Denies muscle cramps, Denies muscle weakness, Denies numbness, Denies radiating pain into limb, Denies stiffness and Denies tingling Neuro Denies abnormal gait, Denies dizziness, Denies numbness and Denies tingling Endo Denies palpitations Physical Exam Vital Signs: Last Vital Signs Pulse 75 02/08/24 14:00 BP 150/72 H 02/08/24 14:00 BMI result Body Mass Index 30.2 Const General: cooperative, healthy appearing, comfortable and no acute distress Orientation/consciousness: patient oriented x3 Neck Neck: Yes normal visual inspection and Yes no JVD Carotids: normal carotid upstroke Resp Effort & Inspection: normal respiratory effort Auscultation: clear to auscultation bilaterally, no crackles, no rales, no rhonchi and no wheezes Cardio Jugular venous distension: no JVD Rate: regular rate Rhythm: regular rhythm Heart sounds: S1 normal heart sound present, S2 normal heart sound present, no murmurs and no rubs Skin General skin exam: no rashes or lesions noted Neuro General: patient oriented x3 Extrem General: Yes normal to inspection, No no pedal edema and No calf tenderness Psych Appearance: grossly normal Mental Status: mental status grossly normal Speech and movement: Normal speech and movement present Assessment & Plan Assessment & Plan (1) Palpitations: Code(s): R00.2 - Palpitations Category: Medical Plan: Reports of heart palpitations that feel like rapid heartbeats and fluttering. Episodes occur randomly and most recent episode lasted approximately 2 hours. A Holter monitor was done on 01/04/2024 for 7 days showing sinus rhythm with average heart rate 73, rare ectopy. Pulse is regular on examination today, clinically in sinus rhythm. She drinks 1 caffeinated beverage a day. Will order a cardiac event monitor for further evaluation. Cardiology follow-up 2-3 months, sooner if needed. (2) Abnormal EKG: Code(s): R94.31 - Abnormal electrocardiogram [ECG] [EKG] Category: Medical Plan: She reports some shortness of breath with exertion. EKG done 11/19/2023 shows sinus rhythm with nonspecific ST and T-wave abnormalities, rate 77. She did have an echocardiogram 01/04/2024 showing EF 60-65%, impaired relaxation, mild AR. A stress echocardiogram was done 01/21/2024 with exercise 5.5 minutes, EKG changes that meet criteria for ischemia (in setting of baseline ST and T-wave abnormality - which could be false positive) and no echo evidence of ischemia. Test results reviewed with her in detail. She currently has no anginal sounding symptoms. Signs and symptoms of angina reviewed with her. Her shortness of breath may be related to deconditioning. Increase physical activity as tolerated. Plan Time spent on chart review, documentation, interviewed assessment Orders: Orders ECG 30 day event monitor Today R00.2 - Palpitations Coding Level of Care Code Est Pt Level 3 (21948) Complex EM visit Add On G2211 Diagnoses Palpitations R00.2 Abnormal EKG R94.31 Time Spent (min) 24
== END 2024-02-08 15:05 | disposition home or self-care (01) ==
PROVIDERS: PCP Internal Medicine; Visit Provider Nurse Practitioner Family
DX: R00.2 Palpitations (principal); R94.31 Abnormal electrocardiogram [ECG] [EKG]
CPT/HCPCS: 99213; G2211

== ENCOUNTER → 2024-02-08 13:59 | Outpatient (BNVA) | payer MEDICARE, SELFPAY | PROVIDERS: PCP Internal Medicine; Visit Provider Nurse Practitioner Family | DX: R94.31 Abnormal electrocardiogram [ECG] [EKG] (principal); R00.2 Palpitations | CPT/HCPCS: 99212 ==

== ENCOUNTER 2024-02-11 08:33 | Outpatient (REF) | payer MEDICARE, SELFPAY | END 2024-02-11 08:34 | disposition home or self-care (01) | LOC: HO.MAMMO 08:33 | PROVIDERS: PCP Internal Medicine; Visit Provider Internal Medicine | DX: Z12.31 Encounter for screening mammogram for malignant neoplasm of breast (principal) | CPT/HCPCS: 77063; 77067 ==

== ENCOUNTER → 2024-02-11 08:45 | Outpatient (BNV) | payer MEDICARE, SELFPAY | PROVIDERS: PCP Internal Medicine; Visit Provider Internal Medicine | DX: Z12.31 Encounter for screening mammogram for malignant neoplasm of breast (principal) | CPT/HCPCS: 77063; 77067 ==

== ENCOUNTER → 2024-03-22 11:04 | Outpatient (BNV) | payer MEDICARE, SELFPAY | PROVIDERS: PCP Internal Medicine; Visit Provider Internal Medicine | DX: I47.10 Supraventricular tachycardia, unspecified (principal) | CPT/HCPCS: 93272 ==

== ENCOUNTER 2024-04-01 09:03 | Outpatient (REF) | payer MEDICARE, SELFPAY ==
[2024-04-01 10:35] LABS: Alanine Aminotransferase 15 U/L (0-31); Albumin Level 4.1 g/dL (3.5-5.0); Alkaline Phosphatase 112 U/L (39-117); Anion Gap 11 (12-20); Aspartate Amino Transferase 23 U/L (5-31); Bilirubin Total 0.8 mg/dL (0.0-1.0); Blood Urea Nitrogen 21 mg/dL (9-16); Calcium 9.4 mg/dL (8.4-10.2); Carbon Dioxide 26 mmol/L (22-29); Chloride 107 mmol/L (96-108); Cholesterol 170 mg/dL (<200); Estimated Glomerular Filt Rate > 60; Glucose Fasting 91 mg/dL (60-99); HDL Cholesterol 40 mg/dL (>40); LDL Cholesterol Calculated 106 mg/dL (<100); Potassium 4.5 mmol/L (3.3-5.1); Sodium 139 mmol/L (135-145); Total Protein 8.1 g/dL (6.5-8.0); Triglycerides 121 mg/dL (<150); Vitamin D 25-OH Total 52.7 ng/mL (>30)
== END 2024-04-01 09:04 | disposition home or self-care (01) ==
LOC: HO.LAB 09:03
PROVIDERS: PCP Internal Medicine; Visit Provider Internal Medicine
DX: K21.9 Gastro-esophageal reflux disease without esophagitis (principal); E55.9 Vitamin D deficiency, unspecified; E78.5 Hyperlipidemia, unspecified
CPT/HCPCS: 36415; 80053; 80061; 82306

== ENCOUNTER 2024-04-04 09:39 | Outpatient (AMB) | payer MEDICARE, SELFPAY ==
--- NOTE | 2024-04-04 09:47 | MHC.PC.OV ---
Vital Signs 04/04/24 09:49 Height 5 ft 3 in Weight 170 lb BMI 30.1 BP 136/70 Blood Pressure Location Lt brachial Position Sitting Intake Visit Reasons: Annual Exam Intake Note: Patient here for an annual physical exam Coach Professional Athletes Required: Yes Coach Professional Athletes Language: Cable Installation Technician Name: Heather Hernandez MD Information Interpreted: non-clinical & clinical Accompanied by: Self / Same As Patient Allergies No Known Allergies Allergy (Verified 04/04/24 09:55) Medication List - Last Reconciled 04/04/24 by Heather Hernandez MD bisacodyl (Dulcolax (bisacodyl)) 10 mg (2 x 5 mg) PO BEDTIME 2 days cholecalciferol (vitamin D3) 50 mcg PO DAILY 90 days diclofenac sodium 75 mg PO BID 90 days diclofenac sodium 1% (Aleve (diclofenac)) 2 grams topical QID PRN 30 days famotidine 40 mg PO DAILY oxybutynin chloride ER 10 mg PO DAILY peg 3350-electrolytes 236-22.74-6.74 -5.86 gram (Golytely) 240 mL PO Q10M 1 day rosuvastatin 10 mg PO DAILY Tobacco use date assessed: 04/04/24 Fall risk assessment: No Falls in past year Last assessed Fall Risk: 04/04/24 Dental Screening Dental Screen Date: 04/04/24 Did you have a dental visit in the last 12 months?: Yes Did you have a dental problem in the last 6 months where you did not have access to dental care?: No Was dental information given to patient?: Patient has dentist HPI HPI Comments History of Present Illness Details The patient is a 69-year-old female presenting with the need for an annual physical examination. She reports having a normal mammogram in January and a normal Pap test in 2023. A colonoscopy had been scheduled but was postponed pending clearance from a nanotechnology engineering technologist. A cardiac evaluation is currently in process due to episodes of elevated blood pressure, with monitoring having been conducted over a week initially and then extended to 30 days. The patient self-monitors her blood pressure, which is currently stable at 136/70 mmHg. She has a stress test scheduled, as the nanotechnology engineering technologist has requested it before proceeding with the colonoscopy. Her medical history includes diagnoses of hyperlipidemia for which she takes rosuvastatin. The patient mentions a familial history of significant illnesses, including her mother having severe diabetes and her father passing away from esophageal cancer at 70. Her sister was recently diagnosed with breast cancer. The patient denies smoking, alcohol or drug use, and has no depressive or anxiety symptoms. - Vaccination against pneumococcal pneumonia received at age 67 - Influenza vaccine recommended during this visit - Colonoscopy recommended pending cardiology clearance - Monitoring blood pressure regularly at home - A1c is 5.4%, with blood glucose levels reported as borderline; dietary modifications needed - Vitamin D, diclofenac, and famotidine for management of various conditions - Oxybutynin for urinary issues - Six-month follow-up for thyroid function, not fasting required [facility] Medical History (Updated 04/04/24 @ 10:10 by Heather Hernandez MD) Physical exam Abnormal ultrasound of endometrium Urinary urgency Thickened endometrium Left flank pain Mass of right lower leg Varicose veins of right lower extremity with inflammation Left lower quadrant abdominal pain Multinodular goiter (nontoxic) Screening for malignant neoplasm of cervix Urinary incontinence Women's annual routine gynecological examination Heartburn Menopause GERD (gastroesophageal reflux disease) Obesity (BMI 30.0-34.9) Alopecia Varicose veins of lower extremities with inflammation Family history of breast cancer in sister Breast cancer screening, high risk patient Vitamin D deficiency Mixed dyslipidemia Hip pain, bilateral Metacarpophalangeal joint pain of right hand Shortness of breath on exertion Dyslipidemia (high LDL; low HDL) Arthritis Claudine's disease Surgical History Hx of section History of ear surgery Hx of cataract surgery Hx of shoulder surgery Family History (Updated 04/04/24 @ 10:03 by Heather Hernandez MD) Paternal Aunt Breast cancer Sister Breast cancer, Onset Age: 50 Father Esophageal cancer Maternal Uncle Cancer Mother Diabetes mellitus Sister Breast cancer, Onset Age: 52 Father Esophageal cancer, Onset Age: 69 Social History Household Members Other:: daughter Housing: Apartment Alcohol intake: never Patient Tobacco Use Status: Never used Tobacco e-Cigarette/Vaping Use: Never Used Second Hand Smoke Exposure: No service: No Current occupational status: retired Sexual orientation: Straight/Heterosexual Gender identity: Female Cognitive needs: No Hearing needs: No Vision needs: Yes Female Reproductive History Menstrual Age of Menarche: 15 Questionnaire PHQ-9 Over the last 2 weeks, how often have you been bothered by any of the following problems? 1. Little interest or pleasure in doing things: not at all 2. Feeling down, depressed, or hopeless: not at all 3. Trouble falling or staying asleep, or sleeping too much: not at all 4. Feeling tired or having little energy: not at all 5. Poor appetite or overeating: not at all 6. Feeling bad about yourself - or that you are a failure or have let yourself or your family down: not at all 7. Trouble concentrating on things, such as reading the newspaper or watching television: not at all 8. Moving or speaking so slowly that other people could have noticed. Or the opposite - being so fidgety or restless that you have been moving around a lot more than usual: not at all 9. Thoughts that you would be better off or of hurting yourself in some way: not at all Total score: 0 Depression Screening Interpretation: Negative Depression Screening Done: Yes 59169 - PHQ-9 Billing: Yes Source: Developed by Drs. Ricardo Davenport, Nicole Landrum, Gallo Medina and colleagues, with an educational tita from [employer]. Thrive Questionnaire Date Thrive assessed: 04/04/24 I am a: Patient What is your living situation today?: I have a steady place to live Within the past 12 months, did the food you bought not last and you didn't have the money to get more?: Never true Within the past 12 months, did you worry whether your food would run out before you got money to buy more?: Never true Do you have trouble paying for medicines?: No Do you have trouble getting transportation to medical appointments?: No Do you have trouble paying your heating and electricity bill?: No Do you have trouble taking care of your child, family member or friend?: No Do you have trouble with day-to-day activities such as bathing, preparing meals, shopping, managing finances, etc.?: No Are you currently unemployed and looking for a job?: No Are you interested in more education?: No Please select the resources that you would like help with: None Currently or been in a relationship where the following occur: No concerns reported THRIVE Score: 0 AUDIT C Alcohol Use Questionnaire (AUDIT-C) 1. How often do you have a drink containing alcohol?: Never Total Score: 0 Score Reviewed/Action Taken: No ROBIN-7 AMB Questionnaire ROBIN-7 Date ROBIN - 7 assessed: 04/04/24 Feeling nervous, anxious, or on edge: 0 = Not at all Not being able to stop or control worryin = Not at all Worrying too much about different things: 0 = Not at all Trouble relaxin = Not at all Being so restless that it is hard to sit still: 0 = Not at all Becoming easily annoyed or irritable: 0 = Not at all Feeling afraid as if something awful might happen: 0 = Not at all Total ROBIN-7 score (0-4 normal; 5-9 mild; 10-14 moderate; 15-21 severe): 0 Source: Developed by Drs. Ricardo Davenport, Nicole Landrum, Gallo Medina and colleagues, with an educational tita from [employer]. ROBIN-7 Assessment Billing ROBIN-7 Assessment Tool: ROBIN-7 Assessment 43092 Review of Systems Const All systems reviewed & are unremarkable except as noted in HPI and below Card Denies chest pain at rest, Denies chest pain with activity, Denies edema, Denies irregular heart rhythm, Denies claudication, Denies dyspnea, Denies dyspnea on exertion, Denies orthopnea, Denies paroxysmal nocturnal dyspnea and Denies slow heart rate Resp Denies cough, Denies dyspnea and Denies dyspnea on exertion GI Denies abdominal pain, Denies change in bowel habits, Denies excessive flatus, Denies nausea and Denies vomiting Denies urinary incontinence, Denies urinary hesitancy and Denies urinary urgency Musc Denies abnormal gait, Denies atrophy, Denies deformity and Denies limited range of motion Skin/Breast Denies bleeding lesions, Denies changing lesions and Denies rash Neuro Denies abnormal gait, Denies behavioral changes and Denies lack of coordination Psych Denies behavioral changes Physical exam (Primary Care) Vital Signs: Last Vital Signs BP 136/70 04/04/24 09:49 BMI result Body Mass Index 30.1 BMI Assessment/Plan discussion: High BMI High, discussed plan: lifestyle, weight reduction, dietary and physical activity Tobacco/Smoking Status: Tobacco use Status Tobacco use date assessed 04/04/24 04/04/24 09:55 Patient Tobacco Use Status Never used Tobacco 04/04/24 09:52 e-Cigarette/Vaping Use Never Used 04/04/24 09:52 PHQ-9: PHQ-9 Score PHQ-9: Total score 0 04/04/24 09:58 Depression Screening Interpretation: Negative Thrive Assessment: Date of Thrive Assessment Date Thrive assessed 04/04/24 04/04/24 09:52 Currently or been in a relationship where the following occur: No concerns reported [facility] Head: Yes normal to inspection, Yes normocephalic and Yes atraumatic Ears: external ears normal Eyes General: appearance normal, both eyes and all related structures Eyelids: Yes eyelids normal Conjunctivae: conjunctivae normal Neck Neck: Yes normal visual inspection and Yes supple Resp Effort & Inspection: normal respiratory effort Auscultation: clear to auscultation bilaterally Cardio Jugular venous distension: no JVD Rate: regular rate Rhythm: regular rhythm Heart sounds: S1 normal heart sound present and S2 normal heart sound present GI Inspection: Yes normal to inspection Palpation (GI): Soft to palpation and nontender Auscultation: normal bowel sounds Skin General skin exam: no rashes or lesions noted Neuro General: no focal motor deficits Extrem General: Yes full ROM Psych Appearance: grossly normal Office Procedures Flu Questionnaire Does the patient have a severe egg allergy?: No Does the patient have severe life threatening allergies?: No Does the patient have a fever or illness today?: No Has the patient ever had Guillain-Hins[place] Syndrome?: No Has the patient ever had any past reaction to a flu shot?: No Immunizations Fluarix Triv [id number] (PF) 45 mcg (15 mcg x 3)/0.5 mL IM syringe Performing Provider: Heather Hernandez MD [facility] Administered by: NIDHI Dougherty on 04/04/24 10:15 Dose Route Admin Location Dispensed Lot Number Expiration Date [facility] Quality And Reliability Engineer 0.5 mL IM Left Deltoid 0.5 mL [id number] 08/15/24 [id number] [employer] VIS Given Date VIS Provided VIS Publication Date 04/04/24 Single Vaccine 20 Eligibility Eligibility Date Funding Source Not [facility] Eligible 04/04/24 Private Coding Level of Care Code Est Pt Prev Care >65y(75171) Diagnoses Physical exam Z00.00 Additional Codes PHQ-9 - 66199 - PHQ-9 Billing: Yes ([id number]) ROBIN-7 Assessment Billing - ROBIN-7 Assessment Tool: ROBIN-7 Assessment 18230 ([id number]) Time Spent (min) 31 Assessment & Plan Assessment & Plan (1) Physical exam: Code(s): Z00.00 - Encounter for general adult medical examination without abnormal findings Category: Medical Plan - Ongoing monitoring and adjustment of hypertensive therapy as needed - Encourage lifestyle modification for hyperlipidemia and borderline blood glucose - Await cardiology clearance for colonoscopy - Recommend influenza vaccination at today's visit - Follow-up on thyroid function in six months - Monitor medications, specifically refilling oxybutynin and recent refill of rosuvastatin Patient was informed and verbally consented to the use of an ambient scribe for clinic note documentation during this visit. During the visit, we discussed the importance of maintaining current control over her blood pressure and monitoring her cholesterol levels. The patient was informed of her borderline blood glucose levels and the need to manage her diet and exercise to prevent further increase. The necessity of obtaining cardiology clearance before undergoing colonoscopy was emphasized, as was the importance of regular follow-up with her cardiac care team. We discussed the proactive approach in continuing thyroid monitoring in connection with her known autoimmune thyroiditis. Plans were refreshed for receiving the flu vaccine and aligning on expectations for her medication management, notably the need for monitoring and periodic refills. Orders: Orders Influenza 3549-2070 Immunization Today Z23 - Encounter for immunization Thyroid Stimulating Hormone 6 Months E06.3 - Autoimmune thyroiditis Medications: New Fluarix Triv [id number] (PF) (flu vacc [id number] 6mos up(PF)) 0.5 mL IM ONCE 0.5 mL 0RF NS Z23 - Encounter for immunization Refilled oxybutynin chloride ER 10 mg PO DAILY 90 tabs 1RF Patient Instructions: - Monitor blood pressure regularly and bring logs to appointments - Maintain a healthy diet to manage cholesterol and glucose levels - Continue medications as prescribed and notify us if refills are needed - Follow up with the nanotechnology engineering technologist as scheduled on May 02 for colonoscopy clearance - Schedule influenza vaccination today - Return in six months for thyroid function testing
[2024-04-04 09:49] VITALS: BP 136/70; BMI 30.1
== END 2024-04-04 13:29 | disposition home or self-care (01) ==
PROVIDERS: PCP Internal Medicine; Visit Provider Internal Medicine
DX: Z23 Encounter for immunization (principal); Z00.00 Encounter for general adult medical examination without abnormal findings

== ENCOUNTER → 2024-04-04 09:39 | Outpatient (BNVA) | payer MEDICARE, SELFPAY | PROVIDERS: PCP Internal Medicine; Visit Provider Internal Medicine | DX: Z00.00 Encounter for general adult medical examination without abnormal findings (principal); Z23 Encounter for immunization; E06.3 Autoimmune thyroiditis; E78.5 Hyperlipidemia, unspecified | CPT/HCPCS: 90471; 90656; 96127; 99397 ==

== ENCOUNTER 2024-05-02 09:00 | Outpatient (AMB) | payer MEDICARE, SELFPAY ==
[2024-05-02 09:29] VITALS: BP 134/70; PULSE 81; BMI 30.2
--- NOTE | 2024-05-02 09:29 | A.OFFVIS_ITS ---
Vital Signs 05/02/24 09:29 Height 5 ft 3 in Weight 170 lb 10.205 oz BMI 30.2 BP 134/70 Blood Pressure Location Lt brachial Position Sitting Pulse 81 Pulse Source Pulse Oximeter Intake Visit Reasons: 3 mth s/p 30 day Store Operations Manager Required: Yes Store Operations Manager Name: voice mustafa [phone] Allergies No Known Allergies Allergy (Verified 05/02/24 09:33) Medication List - Last Reconciled 05/02/24 by Augusta Donald LEARNING FACILITATOR-C bisacodyl (Dulcolax (bisacodyl)) 10 mg (2 x 5 mg) PO BEDTIME 2 days cholecalciferol (vitamin D3) 50 mcg PO DAILY 90 days diclofenac sodium 75 mg PO BID 90 days diclofenac sodium 1% (Aleve (diclofenac)) 2 grams topical QID PRN 30 days famotidine 40 mg PO DAILY oxybutynin chloride ER 10 mg PO DAILY peg 3350-electrolytes 236-22.74-6.74 -5.86 gram (Golytely) 240 mL PO Q10M 1 day rosuvastatin 10 mg PO DAILY HPI HPI 3 mth s/p 30 day: Details: Julia is a 69-year-old female with past medical history of hypertension, hyperlipidemia who underwent cardiac evaluation for shortness of breath without significant findings. She was also reporting heart palpitations and underwent a car monitoring presents for follow-up. Today she reports that she her heart palpitations have gone away. She has been trying to eat better and cut down her salt intake. She has been increasing her walking and trying to remain more active. She is not experiencing any concerning palpitations recently. She still has some shortness with activity which is overall unchanged. No PND, orthopnea or edema. No chest discomfort at rest or with activity. No lightheadedness, presyncope, syncope, falls. [facility] Medical History Physical exam Abnormal ultrasound of endometrium Urinary urgency Thickened endometrium Left flank pain Mass of right lower leg Varicose veins of right lower extremity with inflammation Left lower quadrant abdominal pain Multinodular goiter (nontoxic) Screening for malignant neoplasm of cervix Urinary incontinence Women's annual routine gynecological examination Heartburn Menopause GERD (gastroesophageal reflux disease) Obesity (BMI 30.0-34.9) Alopecia Varicose veins of lower extremities with inflammation Family history of breast cancer in sister Breast cancer screening, high risk patient Vitamin D deficiency Mixed dyslipidemia Hip pain, bilateral Metacarpophalangeal joint pain of right hand Shortness of breath on exertion Dyslipidemia (high LDL; low HDL) Arthritis Claudine's disease Surgical History Hx of section History of ear surgery Hx of cataract surgery Hx of shoulder surgery Family History Paternal Aunt Breast cancer Sister Breast cancer, Onset Age: 50 Father Esophageal cancer Maternal Uncle Cancer Mother Diabetes mellitus Sister Breast cancer, Onset Age: 52 Father Esophageal cancer, Onset Age: 69 Social History Household Members Other:: daughter Housing: Apartment Alcohol intake: never Patient Tobacco Use Status: Never used Tobacco e-Cigarette/Vaping Use: Never Used Second Hand Smoke Exposure: No service: No Current occupational status: retired Sexual orientation: Straight/Heterosexual Gender identity: Female Cognitive needs: No Hearing needs: No Vision needs: Yes Female Reproductive History Menstrual Age of Menarche: 15 Review of Systems Const All systems reviewed & are unremarkable except as noted in HPI and below ENT Denies dizziness Card Denies chest pain, Denies chest pain at rest, Denies chest pain with activity, Denies rapid heart rate, Denies pedal edema, Denies edema, Denies leg edema, Denies lightheadedness, Denies palpitations, Denies dyspnea, Denies dyspnea on exertion and Denies orthopnea Resp Denies cough, Denies dyspnea and Denies dyspnea on exertion GI Denies hematochezia and Denies change in stool character Musc Denies abnormal gait, Denies limited range of motion, Denies muscle cramps, Denies muscle weakness, Denies numbness, Denies radiating pain into limb, Denies stiffness and Denies tingling Neuro Denies abnormal gait, Denies dizziness, Denies numbness and Denies tingling Endo Denies palpitations Physical Exam Vital Signs: Last Vital Signs Pulse 81 05/02/24 09:29 BP 134/70 05/02/24 09:29 BMI result Body Mass Index 30.2 Const General: cooperative, healthy appearing, comfortable and no acute distress Orientation/consciousness: patient oriented x3 Neck Neck: Yes normal visual inspection Resp Effort & Inspection: normal respiratory effort Auscultation: clear to auscultation bilaterally, no rales, no rhonchi and no wheezes Cardio Rate: regular rate Rhythm: regular rhythm Heart sounds: S1 normal heart sound present, S2 normal heart sound present, no gallops, no murmurs and no rubs Neuro General: patient oriented x3 Extrem General: Yes normal to inspection, No no pedal edema and No calf tenderness Psych Appearance: grossly normal Mental Status: mental status grossly normal Speech and movement: Normal speech and movement present Assessment & Plan Assessment & Plan (1) Palpitations: Code(s): R00.2 - Palpitations Category: Medical Plan: Prior reports of heart palpitations that feel like rapid heartbeats and fluttering. A Holter monitor was done on 01/04/2024 for 7 days showing sinus rhythm with average heart rate 73, rare ectopy. A cardiac event monitor was done on 03/22/2024 for 30 days which showed sinus rhythm with average heart rate 69, SVE less than 1%, brief runs lasting seconds, VE less than 1%. Test results reviewed with her. At this time her palpitations have resolved. Continue physical activity as tolerated. Limit caffeine intake. Cardiology follow-up p.r.n. (2) Abnormal EKG: Code(s): R94.31 - Abnormal electrocardiogram [ECG] [EKG] Category: Medical Plan: She reports some shortness of breath with exertion. EKG done 11/19/2023 shows sinus rhythm with nonspecific ST and T-wave abnormalities, rate 77. She did have an echocardiogram 01/04/2024 showing EF 60-65%, impaired relaxation, mild AR. A stress echocardiogram was done 01/21/2024 with exercise 5.5 minutes, EKG changes that meet criteria for ischemia (in setting of baseline ST and T-wave abnormality - which could be false positive) and no echo evidence of ischemia. Test results reviewed with her in detail. No cardiac findings that contribute to her shortness of breath with exertion symptoms. It could be related to deconditioning. EKG findings are nonspecific. Signs and symptoms of angina reviewed with her. Plan Time spent on chart review, documentation, interviewed assessment Coding Level of Care Code Est Pt Level 3 (50951) Complex EM visit Add On G2211 Diagnoses Palpitations R00.2 Abnormal EKG R94.31 Time Spent (min) 24
== END 2024-05-02 10:02 | disposition home or self-care (01) ==
LOC: HO.HCS 09:01
PROVIDERS: PCP Internal Medicine; Visit Provider Nurse Practitioner Family
DX: R00.2 Palpitations (principal); R94.31 Abnormal electrocardiogram [ECG] [EKG]
CPT/HCPCS: 99213; G2211

== ENCOUNTER → 2024-05-02 09:00 | Outpatient (BNVA) | payer MEDICARE, SELFPAY | PROVIDERS: PCP Internal Medicine; Visit Provider Nurse Practitioner Family | DX: R00.2 Palpitations (principal); R94.31 Abnormal electrocardiogram [ECG] [EKG] | CPT/HCPCS: 99212 ==

== ENCOUNTER → 2024-06-16 09:10 | Outpatient (REF) | payer MEDICARE, SELFPAY | LOC: HO.SL 09:10 | PROVIDERS: PCP Internal Medicine; Visit Provider Internal Medicine | DX: G47.13 Recurrent hypersomnia (principal) | CPT/HCPCS: 95806 ==

== ENCOUNTER → 2024-06-16 09:42 | Outpatient (BNV) | payer MEDICARE, SELFPAY | PROVIDERS: PCP Internal Medicine; Visit Provider Internal Medicine | DX: G47.33 Obstructive sleep apnea (adult) (pediatric) (principal) | CPT/HCPCS: 95806 ==

== ENCOUNTER → 2024-08-02 11:02 | Outpatient (BNVA) | payer MEDICARE, SELFPAY | PROVIDERS: PCP Internal Medicine; Visit Provider Surgery ==

== ENCOUNTER 2024-08-22 08:26 | Outpatient (AMB) | payer MEDICARE, SELFPAY ==
--- NOTE | 2024-08-22 08:27 | A.OFFVIS_ITS ---
Vital Signs 08/22/24 08:32 Height 5 ft 3 in Weight 166 lb BMI 29.4 BP 160/70 H Intake Visit Reasons: CLAIM BENEFIT SPECIALIST annual exam Assistant Field Hockey Coach Required: Yes Assistant Field Hockey Coach Language: Behavioral Modification Assistant Services: Assistant Field Hockey Coach Present (in person) Assistant Field Hockey Coach Name: Janette Prakash NIDHI Information Interpreted: non-clinical & clinical Skiver Machine Operator: Skiver Machine Operator Present (NIDHI Reyes ) Accompanied by: Self / Same As Patient Allergies No Known Allergies Allergy (Verified 08/22/24 08:31) Is last menstrual period known: No Post menopausal: Yes Patient : No HPI Comments Details: Presenting for annual exam. No complaints. Last Pap/HPV was negative in 06/09 Last Mammogram was BI-RADS 1 in 02/08 The patient is in the process of scheduling her next Colonoscopy with a GI office Last DEXA scan was 11/08 [facility] Medical History Physical exam Abnormal ultrasound of endometrium Urinary urgency Thickened endometrium Left flank pain Mass of right lower leg Varicose veins of right lower extremity with inflammation Left lower quadrant abdominal pain Multinodular goiter (nontoxic) Screening for malignant neoplasm of cervix Urinary incontinence Women's annual routine gynecological examination Heartburn Menopause GERD (gastroesophageal reflux disease) Obesity (BMI 30.0-34.9) Alopecia Varicose veins of lower extremities with inflammation Family history of breast cancer in sister Breast cancer screening, high risk patient Vitamin D deficiency Mixed dyslipidemia Hip pain, bilateral Metacarpophalangeal joint pain of right hand Shortness of breath on exertion Dyslipidemia (high LDL; low HDL) Arthritis Claudine's disease Surgical History Hx of section History of ear surgery Hx of cataract surgery Hx of shoulder surgery Family History Paternal Aunt Breast cancer Sister Breast cancer, Onset Age: 50 Father Esophageal cancer Maternal Uncle Cancer Mother Diabetes mellitus Sister Breast cancer, Onset Age: 52 Father Esophageal cancer, Onset Age: 69 Social History Household Members Other:: daughter Housing: Apartment Alcohol intake: never Patient Tobacco Use Status: Never used Tobacco e-Cigarette/Vaping Use: Never Used Second Hand Smoke Exposure: No service: No Current occupational status: retired Sexual orientation: Straight/Heterosexual Gender identity: Female Cognitive needs: No Hearing needs: No Vision needs: Yes Female Reproductive History Menstrual Age of Menarche: 15 Total pregnancies: 2 Full term: 2 Date of last pap smear: 06/10/23 (negative pap smear, negative hpv) Date of Mammogram: 02/11/24 (bi rad 1) Review of Systems Const All systems reviewed & are unremarkable except as noted in HPI and below Card Reports as per HPI Resp Reports as per HPI GI Reports as per HPI and Reports no additional complaints Reports as per HPI Physical Exam Vital Signs: Last Vital Signs BP 160/70 H 08/22/24 08:32 BMI result Body Mass Index 29.4 Const General: cooperative, healthy appearing and comfortable Chest Chest palpation & inspection: normal inspection of the chest and normal palpation of entire chest wall Breast/axilla inspection: normal inspection of the breasts and normal inspection of the axillae Breast/axilla palpation: normal palpation of the breasts, normal palpation of the axillae and no axillary lymphadenopathy Resp Effort & Inspection: normal respiratory effort Auscultation: clear to auscultation bilaterally Percussion: percussion normal Cardio Palpation: normal PMI Rate: regular rate Rhythm: regular rhythm Heart sounds: no murmurs and no rubs Peripheral pulses: Peripheral pulses 2+ throughout GI Inspection: Yes normal to inspection Palpation (GI): Soft to palpation, nontender, no guarding, not rigid and No hepatosplenomegaly present Percussion: Yes normal to percussion Auscultation: normal bowel sounds Rectal Exam - Female: deferred General: Yes bladder normal to palpation External Female Exam: No lesion Speculum Exam - Vagina: normal appearance of the vagina, normal palpation, normal vaginal discharge and not erythematous Speculum Exam - Cervix: normal appearance of the cervix and normal palpation Bimanual exam- vagina & uterus: normal bimanual exam, normal palpation, uterine size normal, bladder normal to palpation, consistency normal and normal palpation Bimanual Exam- Adnexa, other: normal adnexae, no masses and no tenderness Assessment & Plan Assessment & Plan (1) Well woman exam: Code(s): Z01.419 - Encounter for gynecological examination (general) (routine) without abnormal findings Category: Medical Plan: Co testing not indicated this year. Counseled the patient about the recommended dietary allowance of 1200 mg of Calcium & 800 IU of vitamin D. Mammogram scheduled for 03/13. The patient is is in the process of schedule next screening colonoscopy. Will order DEXA scan . The patient was instructed to perform monthly self-breast exams and to schedule a 2 week DEXA scan follow-up appointment and an annual exam in a year; All questions answered and the patient verbalized understanding. Orders: Orders XR DEXA axial skeleton Today Z78.0 - Asymptomatic menopausal state Coding Level of Care Code Est Pt Prev Care >65y(57423) Diagnoses Well woman exam Z01.419
[2024-08-22 08:32] VITALS: BP 160/70; BMI 29.4
== END 2024-08-22 08:48 | disposition home or self-care (01) ==
PROVIDERS: PCP Internal Medicine; Visit Provider Obstetrics & Gynecology
DX: Z01.419 Encounter for gynecological examination (general) (routine) without abnormal findings (principal)
CPT/HCPCS: G0101

== ENCOUNTER → 2024-08-22 08:26 | Outpatient (BNVA) | payer MEDICARE, SELFPAY | PROVIDERS: PCP Internal Medicine; Visit Provider Obstetrics & Gynecology | DX: Z01.419 Encounter for gynecological examination (general) (routine) without abnormal findings (principal) | CPT/HCPCS: G0101 ==

== ENCOUNTER 2024-09-23 08:42 | Outpatient (REF) | payer MEDICARE, SELFPAY ==
[2024-09-23 09:58] LABS: Thyroid Stimulating Hormone 2.52 uIU/mL (0.32-4.0)
== END 2024-09-23 08:43 | disposition home or self-care (01) ==
LOC: HO.LAB 08:42
PROVIDERS: PCP Internal Medicine; Visit Provider Internal Medicine
DX: E06.3 Autoimmune thyroiditis (principal)
CPT/HCPCS: 36415; 84443

== ENCOUNTER 2024-11-09 08:23 | Outpatient (AMB) | payer MEDICARE, SELFPAY ==
--- OUTSIDE RECORDS SUMMARY | 2024-11-09 09:12 | XMS_ITS | Clinical Summary ---
Author Organization [facility] Address [address] [place] [address] Phone Care Team Providers Care Restaurant Crew Person Name Role Phone Kadi Urena MD Primary Care Provider [phone] Allergies No known active allergies Medications Lactobacillus [...] EDT - 10/10/2024 12:54 PM EDT Emergency [facility] Emergency [address] [place] [address] Shabbir Muse MD Enterovirus infection [...] complete this topic Insurance [employer] MEDICARE MEDICAID - [place] Care Teams Restaurant Crew Person Relationship Specialty Start Date End Date Kadi Urena MD [address] [place] [address] PCP - General Internal Medicine 08/07/20
[2024-11-09 12:51] VITALS: BMI 29.1
--- NOTE | 2024-11-09 12:51 | MHC.OFFVISWM ---
VS Expanded 11/09/24 12:51 Height 5 ft 3 in Weight 164 lb 8 oz BMI 29.1 Body Fat % 37.8 Body Fat Mass 62.2 Fat Free Mass 102.6 Visceral Fat Rating 10 Body Water % 43.9 Body Water Mass 72.4 Basal Metabolic Rate/Score 1,396 Intake Visit Reasons: RN PSYCHIATRIC MWL *CLINICAL LABORATORY TECHNOLOGIST* Kalsominer Required: Yes Kalsominer Services: Kalsominer Present Information Interpreted: clinical only Allergies No Known Allergies Allergy (Verified 11/09/24 12:52) Medication List - Last Reconciled 11/09/24 by Mayco Sparks MD bisacodyl (Dulcolax (bisacodyl)) 10 mg (2 x 5 mg) PO BEDTIME 2 days cholecalciferol (vitamin D3) 50 mcg PO DAILY 90 days diclofenac sodium 75 mg PO BID 90 days diclofenac sodium 1% 2 grams topical QID PRN 30 days famotidine 40 mg PO DAILY oxybutynin chloride ER 10 mg PO DAILY peg 3350-electrolytes 236-22.74-6.74 -5.86 gram (Golytely) 240 mL PO Q10M 1 day rosuvastatin 10 mg PO DAILY Held on 10/31/23. Instructions: Doctor's Order HPI HPI RN PSYCHIATRIC MWL *CLINICAL LABORATORY TECHNOLOGIST*: Details: Start time: 12.45pm, End time: 1.30pm ?I spent 40 minutes speaking with the patient on the phone plus an additional 5 minutes reviewing and updating records for a total of 45 minutes HPI Comments Details: Previous weight loss efforts: self diets and exercise Wakes up: 6.30-7am to 9am, Sleeps: 11pm Breakfast: 9am (sandwich, cream, eggs) Lunch: 1pm (sandwich, salad) Dinner: 5.30pm (salad, meat, rice) Snacks: 4pm (Ham and cheese) Exercise: none Beverages: Coffee (1 cup/d with sugar), Tea: occasionally, Soda: regular Coke (2-3/wk), Juice: 2-3/wk, ETOH: none PFSH Medical History (Updated 11/09/24 @ 13:03 by Mayco Sparks MD) Asthma DJD (degenerative joint disease) Overweight Physical exam Abnormal ultrasound of endometrium Urinary urgency Thickened endometrium Left flank pain Mass of right lower leg Varicose veins of right lower extremity with inflammation Left lower quadrant abdominal pain Multinodular goiter (nontoxic) Screening for malignant neoplasm of cervix Urinary incontinence Women's annual routine gynecological examination Heartburn Menopause GERD (gastroesophageal reflux disease) Obesity (BMI 30.0-34.9) Alopecia Varicose veins of lower extremities with inflammation Family history of breast cancer in sister Breast cancer screening, high risk patient Vitamin D deficiency Mixed dyslipidemia Hip pain, bilateral Metacarpophalangeal joint pain of right hand Shortness of breath on exertion Dyslipidemia (high LDL; low HDL) Arthritis Claudine's disease Surgical History Hx of section History of ear surgery Hx of cataract surgery Hx of shoulder surgery Family History Paternal Aunt Breast cancer Sister Breast cancer, Onset Age: 50 Father Esophageal cancer Maternal Uncle Cancer Mother Diabetes mellitus Sister Breast cancer, Onset Age: 52 Father Esophageal cancer, Onset Age: 69 Social History Household Members Other:: daughter Housing: Apartment Alcohol intake: never Patient Tobacco Use Status: Never used Tobacco e-Cigarette/Vaping Use: Never Used Second Hand Smoke Exposure: No service: No Current occupational status: retired Sexual orientation: Straight/Heterosexual Gender identity: Female Cognitive needs: No Hearing needs: No Vision needs: Yes Female Reproductive History Menstrual Age of Menarche: 15 Telehealth Telehealth Telehealth Platform: Telephone Location of provider rendering services: practice address Location of patient: address on file Patient Identification confirmed using: Name, : Yes Telehealth method: voice only Patient verbally consented to treatment: Yes Patient verbally consented to billing insurance company: Yes Patient informed of any privacy concerns related to visit: Yes Minutes spent on Phone/Video with Pt.: 45 Assessment & Plan Assessment & Plan (1) Overweight: Code(s): E66.3 - Overweight Category: Medical Plan: 1. As we discussed, based on your present BMI you are approximately 25lbs overweight. In my opinion, for any weight loss strategy to be successful should have a high probability to help you lose at least 20lbs out of 25lbs of the extra weight you carry. We discussed in detail the available therapeutic options: 1) our lifestyle intervention program that has an average weight loss of 10% in 3 months.?Some patients continue it for longer and have lost over 50lbs but this is not common. Our lifestyle program can be provided by me. We use protein shakes and protein bars to replace some of the meals of the day and cover your appetite better. We will decide together the exact combination. There is no cost for you to participate in the lifestyle program. 2) Weight loss injections: these can be used in conjunction with our lifestyle program or you may choose to use them without following a lifestyle program from my program but your own. As we discussed, your insurance will not cover these injections. We also discussed that you can self pay for the first 3 months and the cost is $249 for the first month and $499 for any other month thereafter. These payments go to the drug company directly and not to us. 3) There is another medication in a pill form which is not expensive and is called Phentermine which you take daily. We discussed the potential side-effects of the Phentermine such as irritability, dry mouth, difficulty sleeping, dizziness, numbness in feet and high blood pressure. I asked her to get a blood pressure monitor and measure the blood pressure daily in the morning and evening. She needs to send the blood pressure readings daily and to call the office for blood pressure over 140/80 and she understands that. 4) Please buy a body composition scale and start sharing measurements with me
== END 2024-11-09 13:30 | disposition home or self-care (01) ==
LOC: HO.HBS 08:23
PROVIDERS: PCP Internal Medicine; Visit Provider Surgery
DX: E66.3 Overweight (principal); Z68.29 Body mass index [BMI] 29.0-29.9, adult
CPT/HCPCS: 99204

== ENCOUNTER 2024-11-10 09:53 | Outpatient (REF) | payer MEDICARE, SELFPAY ==
--- NOTE | ~2024-11-10 | MM_ITS ---
EXAMINATION: DXA BONE DENSITY AXIAL HISTORY: Z78.0 - Asymptomatic menopausal state TECHNIQUE: FND Dual energy absorptiometry (DEXA) of the lumbar spine, total left hip, and femoral neck was performed. COMPARISON: Comparison is made with the prior examination dated 11/07/2022. FINDINGS: The bone mineral density of the lumbar spine is 1.203 g/cm2, corresponding to a T-score of 0.2, and a Z-score of 1.4. This is indicative of normal bone mineral density. This represents a BMD change of 3.4% compared to the prior exam. This is statistically significant. The bone mineral density of the left total hip is 0.993 g/cm2, corresponding to a T-score of -0.1, and a Z-score of 0.9. This is indicative of normal bone mineral density. This represents a BMD change of -3.9% compared to the prior exam. This is statistically significant. The bone mineral density of the left femoral neck is 0.890 g/cm2, corresponding to a T-score of -1.1, and a Z-score of 0.2. This is indicative of osteopenia. This represents a BMD change of 3.2% compared to the prior exam. FRACTURE RISK: The FRAX index suggests a ten year probability of major osteoporotic fracture of 4.7%, and of hip fracture 0.4%. MM/XR DEXA axial skeleton IMPRESSION: Based on bone mineral density, and according to World Health Organization (WHO) criteria, the diagnosis is consistent with osteopenia. Statistically, 68% of repeat scans fall within 1 SD (+/- 0.010 g/cm2 for AP spine L1-L4) and 1 SD (+/- 0.012 g/cm2 for femur total) FRAX is a trademark of the [employer]'s [employer] Met[employer], a World Health Organization (WHO) Collaborating Center. Electronically signed by: Ricardo Hogue MD 11/10/2024 10:18 AM EDT
--- OUTSIDE RECORDS SUMMARY | 2024-11-10 11:51 | XMS_ITS | Clinical Summary ---
Author Organization [facility] Address [address] [place] [address] Phone Care Team Providers Care Career Counselor Name Role Phone Kadi Urena MD Primary Care Provider Allergies No known active allergies Medications rosuvastatin (CRESTOR) 10 mg tablet Take 1 tablet (10 mg total) by mouth 1 (one) time each day. Active montelukast sodium (SINGULAIR ORAL) Take 1 tablet by mouth 1 (one) time each day. Active Lactobacillus acidophilus 100 mg (1 billion cell) capsule Take 1 capsule by mouth 2 (two) times a day. 60 each 5 11/10/19 25 aluminum-magnes ium hydroxide-simet hicone (MAALOX MAX) 400-400-40 [...] EDT - 10/10/2024 12:54 PM EDT Emergency [facility] Emergency [address] [place] [address] Shabbir Muse MD Enterovirus infection (Primary Dx); Diarrhea, unspecified type Discharge Disposition: Home or Self Care from Last 3 Months Medical History Medical History Date Comments High cholesterol DX:High cholest rihannon Lower back pain DX:Lower back pa in [...] complete this topic Insurance [place] [address] MEDICAID - [place] Care Teams Career Counselor Relationship Specialty Start Date End Date Kadi Urena MD [address] [place] [address] PCP - General Internal Medicine 08/07/20
== END 2024-11-10 09:54 | disposition home or self-care (01) ==
LOC: HO.MAMMO 09:53
PROVIDERS: PCP Internal Medicine; Visit Provider Obstetrics & Gynecology
DX: Z13.820 Encounter for screening for osteoporosis (principal); Z78.0 Asymptomatic menopausal state
CPT/HCPCS: 77080

== ENCOUNTER → 2024-11-10 10:00 | Outpatient (BNV) | payer MEDICARE, SELFPAY | PROVIDERS: PCP Internal Medicine; Visit Provider Radiology Diagnostic Radiology | DX: E28.39 Other primary ovarian failure (principal) | CPT/HCPCS: 77080 ==

== ENCOUNTER 2024-11-17 06:01 | Day surgery (SDC) | payer MEDICARE, SELFPAY ==
--- OUTSIDE RECORDS SUMMARY | 2024-11-07 08:00 | XMS_ITS | Clinical Summary ---
Author Organization [facility] Address [address] [place] [address] Phone Care Team Providers Care Sales Project Coordinator Name Role Phone Kadi Urena MD Primary Care Provider [phone] Allergies No known active allergies Medications Lactobacillus acidophilus 100 mg (1 billion cell) capsule Take 1 capsule by mouth 2 (two) times a day. 60 each 5 11/10/19 25 Active rosuvastatin (CRESTOR) 10 mg tablet Take 1 tablet (10 mg total) by mouth 1 (one) time each day. Active montelukast sodium (SINGULAIR ORAL) Take 1 tablet by mouth 1 (one) time each day. Active aluminum-magnes ium hydroxide-simet hicone (MAALOX MAX) 400-400-40 mg/5 mL suspension Take 10 mL by mouth every 6 (six) hours if needed for indigestion for up to 10 days. 355 mL 5 10/21/19 25 dicyclomine (BENTYL) 20 mg tablet Take 1 tablet (20 mg total) by mouth 2 (two) times a day for 10 days. 20 tablet 5 10/21/19 25 ondansetron (ZOFRAN) 4 mg tablet Take 1 tablet (4 mg total) by mouth every 8 (eight) hours if needed for nausea or vomiting for up to 7 days. 20 tablet 5 10/18/19 25 Active Problems Problem Noted Date Diagnosed Date Seasonal allergies 06/21/2024 Perennial allergic rhinitis 06/21/2024 Allergic rhinitis due to pollen 06/21/2024 Otosclerosis of ossicle of left ear 05/10/2024 Mixed conductive and sensorineural hearing loss of left ear 05/10/2024 Encounters Date Type Department Care Team Description 10/10/2024 12:28 PM EDT - 10/10/2024 12:54 PM EDT Emergency [facility] Emergency [address] [place] [address] Shabbir Muse MD Enterovirus infection (Primary Dx); Diarrhea, unspecified type Discharge Disposition: Home or Self Care from Last 3 Months Medical History Medical History Date Comments High cholesterol DX:High cholest rhiannon Lower back pain DX:Lower back pa in Social History Tobacco Use Types Packs/Day Years Used Date Smoking Tobacco: Never Smokeless Tobacco: Never Alcohol Use Standard Drinks/Week Comments Never 0 (1 standard drink = 0.6 oz pur e alcohol) Comments Unknown Sex and Gender Information Value Date Recorded Sex Assigned at Not on file Legal Sex Female 3:31 PM EST Gender Identity Not on file Sexual Orientation Not on file Obstetrics History Last Filed Vital Signs Vital Sign Reading Time Taken Comments Blood Pressure 140/65 10/10/2024 11:44 AM EDT Pulse 74 10/10/2024 11:44 AM EDT Temperature 36.8 C (98.2 F) 10/10/2024 11:44 AM EDT Respiratory Rate 16 10/10/2024 11:44 AM EDT Oxygen Saturation 96% 10/10/2024 11:44 AM EDT Inhaled Oxygen Concentration - - Weight 77.6 kg (171 lb) 10/10/2024 11:44 AM EDT Height 160 cm (5' 3 ) 10/10/2024 11:44 AM EDT Body Mass Index 30.29 10/10/2024 11:44 AM EDT Plan of Treatment Health Maintenance Due Date Last Done Comments Breast Cancer Screening 1955 DTaP,Tdap,and Td Vaccines (1 - Tdap) 01/20/1976 Depression Screening 02/17/2024 Zoster Vaccines (2 of 2) 08/10/2024 06/15/2024 Colorectal Cancer Screening: Colonoscopy 10/10/2024 Falls Risk Assessment 10/10/2024 Hepatitis C Screening 10/10/2024 Medicare Annual Wellness Visit 10/10/2024 Osteoporosis Screening (Bone Density Screening) 10/10/2024 Social Influencers of Health Screening 10/10/2024 COVID-19 Vaccine (3 - 2024-2 6 season) 2024 08/20/2020, 07/30/2020 Influenza Vaccine (#1) 2024 , 12/14/2020 RSV Immunization Adult Patients (1 - 1-dose 75+ series) 01/20/2032 Pneumococcal Vaccine: 50+ Years Completed 10/14/2022 HIB Vaccines Aged Out No longer eligi ble based on patient's age to complete this topic HPV Vaccines Aged Out No longer eligi ble based on patient's age to complete this topic Hepatitis A Vaccines Aged Out No long er eligible based on patient's age to complete this topic Hepatitis B Vaccines Aged Out No long er eligible based on patient's age to complete this topic IPV Vaccines Aged Out No longer eligi ble based on patient's age to complete this topic MMR Vaccines Aged Out No longer eligi ble based on patient's age to complete this topic Meningococcal ACWY Vaccine Aged Out N o longer eligible based on patient's age to complete this topic Meningococcal B Vaccine Aged Out No l onger eligible based on patient's age to complete this topic RSV Immunization Patients Under 20 months Aged Out No longer eligible b ased on patient's age to complete this topic Varicella Vaccines Aged Out No longer eligible based on patient's age to complete this topic Insurance [place] [address] MEDICAID - [place] Care Teams Sales Project Coordinator Relationship Specialty Start Date End Date Kadi Urena MD [address] [place] [address] PCP - General Internal Medicine 08/07/20
[2024-11-15 14:29] VITALS: BMI 29.1
--- NOTE | 2024-11-16 12:04 | P.CONAN_ITS ---
Documented by User: Urszula Lemon NP 11/16/24 12:11 HPI - Anesthesia Eval Consult details Narrative: 69 yr old female for colonoscopy Asthma: no inhaler rx documented GERD: on H2 mina PCP note from 03/2024 states await cardiac clearance for colonoscoy. SOB on exertion: Saw [facility] cardiology for work up end of 2023, early 2024, had stress echo with EKG changes meeting criteria for ischemia, per cards note in setting of baseline ST and T-wave abnormality - which could be false positive and no echo evidence of ischemia. No cardiac findings that contribute to her shortness of breath with exertion symptoms. It could be related to deconditioning. EKG findings are nonspecific. PMFSH Active Problems Active Problems: All Active Problems Asthma (Acute) DJD (degenerative joint disease) (Acute) Overweight (Acute) Recurrent hypersomnia (Acute) Daytime somnolence (Acute) Physical exam (Acute) Abnormal EKG (Acute) Ear discomfort (Acute) Insomnia (Acute) Breast lump on left side at 3 o'clock position (Acute) Well woman exam (Acute) Tachycardia (Acute) Palpitations (Acute) Pre-op examination (Acute) Intrinsic sphincter deficiency (ISD) (Acute) GERD (gastroesophageal reflux disease) (Acute) Obesity (BMI 30-39.9) (Acute) Mastalgia in female (Acute) Pelvic floor weakness (Acute) MYRNA (stress urinary incontinence, female) (Acute) Obesity (BMI 30.0-34.9) (Acute) Alopecia (Acute) 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) Family history of breast cancer in sister (Acute) Breast cancer screening, high risk patient (Acute) Vitamin D deficiency (Acute) Hip pain, bilateral (Acute) Metacarpophalangeal joint pain of right hand (Acute) Shortness of breath on exertion (Acute) Dyslipidemia (high LDL; low HDL) (Acute) Past Medical History Medical History (Updated 11/09/24 @ 13:03 by Mayco Sparks MD) Asthma DJD (degenerative joint disease) Overweight Physical exam Abnormal ultrasound of endometrium Urinary urgency Thickened endometrium Left flank pain Mass of right lower leg Varicose veins of right lower extremity with inflammation Left lower quadrant abdominal pain Multinodular goiter (nontoxic) Screening for malignant neoplasm of cervix Urinary incontinence Women's annual routine gynecological examination Heartburn Menopause GERD (gastroesophageal reflux disease) Obesity (BMI 30.0-34.9) Alopecia Varicose veins of lower extremities with inflammation Family history of breast cancer in sister Breast cancer screening, high risk patient Vitamin D deficiency Mixed dyslipidemia Hip pain, bilateral Metacarpophalangeal joint pain of right hand Shortness of breath on exertion Dyslipidemia (high LDL; low HDL) Arthritis Claudine's disease Family History Family History Paternal Aunt Breast cancer Sister Breast cancer, Onset Age: 50 Father Esophageal cancer Maternal Uncle Cancer Mother Diabetes mellitus Sister Breast cancer, Onset Age: 52 Father Esophageal cancer, Onset Age: 69 Family history of problems with anesthesia: No Surgical History Surgical History Hx of section History of ear surgery Hx of cataract surgery Hx of shoulder surgery History of Problems with Anesthesia: No Social History Social History Household Members Other:: daughter Housing: Apartment Alcohol intake: never Patient Tobacco Use Status: Never used Tobacco e-Cigarette/Vaping Use: Never Used Second Hand Smoke Exposure: No Use of substances other than those prescribed or required for medical reasons: No Are you DNR?: No Advance Directives: No Advance Directives Information Provided: Yes Patient : No : No Poor oral hygiene: No service: No Current occupational status: retired Sexual orientation: Straight/Heterosexual Gender identity: Female Cognitive needs: No Hearing needs: No Vision needs: Yes Meds Allergies Allergy/AdvReac Type Severity Reaction Status Date / Time No Known Allergies Allergy Verified 11/09/24 12:52 Exam Height,Weight and Vital Signs: Height 5 ft 3 in Weight 74.616 kg Narrative Narrative: ECHO 12/2023 Conclusions: - 1. Normal LV ejection fraction of 60 65% with impaired relaxation filling pattern 2. Mild aortic regurgitation 3. Normal RV systolic pressure 4. No gross pericardial effusion Stress test 01/2024 Exercise Stress Test with exercise 5 mins 30 secs of Darrell Protocol, achieving 96% MPHR, with mild SOB, no chest discomfort, without any arrythmias, with normotensive response to exercise. Horizontal ST depression inferiorly and laterally meeting criteria for ischemia, slowly improving in recovery. Echo images obtained by [employer] at rest and post peak exercise. Definity used by [employer]. Breathing back to baseline in recovery. Test reviewed with Dr. Myers. Assessment and Plan Final Anesthetic Review Family History of Problems with Anesthesia: No History of Problems with Anesthesia: No Documented by User: Agustín Benoit MD 11/17/24 07:22 [facility] Past Medical History Medical History (Updated 11/09/24 @ 13:03 by Mayco Sparks MD) Asthma DJD (degenerative joint disease) Overweight Physical exam Abnormal ultrasound of endometrium Urinary urgency Thickened endometrium Left flank pain Mass of right lower leg Varicose veins of right lower extremity with inflammation Left lower quadrant abdominal pain Multinodular goiter (nontoxic) Screening for malignant neoplasm of cervix Urinary incontinence Women's annual routine gynecological examination Heartburn Menopause GERD (gastroesophageal reflux disease) Obesity (BMI 30.0-34.9) Alopecia Varicose veins of lower extremities with inflammation Family history of breast cancer in sister Breast cancer screening, high risk patient Vitamin D deficiency Mixed dyslipidemia Hip pain, bilateral Metacarpophalangeal joint pain of right hand Shortness of breath on exertion Dyslipidemia (high LDL; low HDL) Arthritis Claudine's disease Family History Family History Paternal Aunt Breast cancer Sister Breast cancer, Onset Age: 50 Father Esophageal cancer Maternal Uncle Cancer Mother Diabetes mellitus Sister Breast cancer, Onset Age: 52 Father Esophageal cancer, Onset Age: 69 Surgical History Surgical History Hx of section History of ear surgery Hx of cataract surgery Hx of shoulder surgery Social History Social History Household Members Other:: daughter Housing: Apartment Alcohol intake: never Patient Tobacco Use Status: Never used Tobacco e-Cigarette/Vaping Use: Never Used Second Hand Smoke Exposure: No Use of substances other than those prescribed or required for medical reasons: No Are you DNR?: No Advance Directives: No Advance Directives Information Provided: Yes Patient : No : No Poor oral hygiene: No service: No Current occupational status: retired Sexual orientation: Straight/Heterosexual Gender identity: Female Cognitive needs: No Hearing needs: No Vision needs: Yes Meds Allergies Allergy/AdvReac Type Severity Reaction Status Date / Time No Known Allergies Allergy Verified 11/09/24 12:52 Exam Airway Mallampati Class: II TM Dist: <=3cm Neck ROM: Full Loose/Missing/Broken Teeth: No Heart: ok Lungs: ok Assessment and Plan Assessment Anesthesia Assessment: Anesthesia Plan Discussed and Chart Reviewed Final Anesthetic Review NPO: Yes ASA Class: II Final Preanesthetic Review: No Changes in Pt Med Stat, Meds/Allgs Chart Reviewed, Consent Obtained/Reviewed and Anes Risks/Benef Reviewed Patient Risk: Low Procedure Risk: Low Anesthetic Plan Anesthetic Plan: MAC: and Agree w/ Assess. and Plan Disposition: Standard PACU
[2024-11-17 06:43] VITALS: BP 151/68; PULSE 64; RESP 16; TEMP 35.8; O2SAT 99; BMI 29.5
[2024-11-17] MEDS: Lactated Ringers 1,000 ML 100 ML IVCONT (07:08)
--- NOTE | 2024-11-17 07:51 | P.HPSUR_ITS ---
Pre-Procedural Eval Section A - 24 Hr Update-Section A only Date of Service: 11/17/24 Section B - Complete if H&P > 30 days Chief Complaint: pos FIT Details of Present Illness: Physical exam Abnormal ultrasound of endometrium Urinary urgency Thickened endometrium Left flank pain Mass of right lower leg Varicose veins of right lower extremity with inflammation Left lower quadrant abdominal pain Multinodular goiter (nontoxic) Screening for malignant neoplasm of cervix Urinary incontinence Women's annual routine gynecological examination Heartburn Menopause GERD (gastroesophageal reflux disease) Obesity (BMI 30.0-34.9) Alopecia Varicose veins of lower extremities with inflammation Family history of breast cancer in sister Breast cancer screening, high risk patient Vitamin D deficiency Mixed dyslipidemia Hip pain, bilateral Metacarpophalangeal joint pain of right hand Shortness of breath on exertion Dyslipidemia (high LDL; low HDL) Arthritis Claudine's disease Surgical History Hx of section History of ear surgery Hx of cataract surgery Hx of shoulder surgery Present Medications: see Short Stay Collaborative assessment Allergies: Allergies Allergy/AdvReac Type Severity Reaction Status Date / Time No Known Allergies Allergy Verified 11/09/24 12:52 Review of Systems Review of Systems Comment: 10 point ROS negative Exam Exam Comment: Gen appear: No acute distress HEENT: no icterus Chest: No overt resp distress Abd: soft, nontender, nondistended Psych: Stable affect, answering questions appropriately Neuro: A/Ox3 noted to move all extremities spontaneously Ext: no peripheral edema Plan Diagnosis/Plan: Unchanged I have reviewed the history and physical and performed a pertinent physical examination on my patient. No changes have occurred unless specified. Time Spent With Patient Time: Total time managing care of this patient today ____ minutes.
--- NOTE | 2024-11-17 08:19 | P.OPN-COLO_ITS ---
Colonoscopy Operative Note Operative Note Date of Service: 11/17/24 Narrative: Procedure: Colonoscopy Indication: + FIT test Endoscopist: Zayda Longo MD Anesthesia Provider: Dr Agustín Benoit Anesthesia type: MAC Instrument: Olympus [id number]-H190L Consent: Indication, risks vs benefits, and alternatives were discussed with the patient who gave written informed consent to proceed. An video game producer was utilized to assist with the consent. EKG, pulse, pulse oximetry and blood pressure were monitored throughout the procedure. Please see anesthesia flowsheet. Procedure: The patient was brought to the procedure room and placed in the left lateral decubitus position. IV medications were administered by the anesthesia provider in attendance. A digital rectal exam was performed which was abnormal due to finding of hemorrhoids. A distal attachment cap was affixed to the tip of the colonoscope which was then inserted through the anus and advanced through the colon to the cecum at 70 cm,and terminal ileum. Appendiceal orifice and ileocecal valve were identified. Mucosa was carefully examined under high definition white light as the instrument was slowly withdrawn in a retrograde panoramic fashion. Retroflexion was performed in rectum. The procedure was not difficult. There were no immediate obvious complications. The quality of the prep was BBPS: 2+3+3 = adequate Withdrawal time 15 minutes. Limitations: No limitations. Findings: Mucosa: Normal to cecum and terminal ileum. Protruding lesions: * 1 sessile polyp of size 2 mm in descending colon. Cold snare polypectomy was performed. The polyp was completely removed and retrieved. * 1 pedunculated polyp of size 20 mm in sigmoid colon at 22 cm from anal verge. 2 cc of epinephrine was injected in the base of the polyp. Hot snare polypectomy was performed. The polyp was completely removed and retrieved. A resolution 360 Endoclip was placed at the polypectomy defect to prevent post polypectomy bleeding. The polyp site was marked with endo fara 3 cm PROXIMAL to the polyp. * Medium internal hemorrhoids without stigmata of recent bleeding. Impression: 1. Normal colon and terminal ileum mucosa 2. Total of 2 polyps removed including a large sigmoid colon polyp (endoclip, endomark) 3. External and internal hemorrhoids Recommendations: - Follow path results. - Repeat colonoscopy in 3 year.
[2024-11-17 08:23] VITALS: BP 142/71; PULSE 84; RESP 20; TEMP 36.1; O2SAT 96
[2024-11-17 08:38] VITALS: BP 155/73; PULSE 75; RESP 18; TEMP 36.4; O2SAT 99
--- NOTE | 2024-11-17 08:52 | PC.NURSE ---
[facility] USED.
== END 2024-11-17 08:58 | disposition home or self-care (01) ==
PROVIDERS: PCP Internal Medicine; Visit Provider Internal Medicine
PROC: 0DJD8ZZ Inspection of Lower Intestinal Tract, Via Natural or Artificial Opening Endoscopic (ICD-10-PCS; CPT 45378; principal; 2024-11-17 07:30)
DX: R19.5 Other fecal abnormalities (principal); D12.5 Benign neoplasm of sigmoid colon; K63.5 Polyp of colon; K64.8 Other hemorrhoids
CPT/HCPCS: 45385; 45381; 88305; J0168; J2003; J2704

== ENCOUNTER → 2024-11-17 06:01 | Outpatient (BNV) | payer MEDICARE, SELFPAY | PROVIDERS: PCP Internal Medicine; Visit Provider Internal Medicine | DX: Z12.11 Encounter for screening for malignant neoplasm of colon (principal); R19.5 Other fecal abnormalities; D12.4 Benign neoplasm of descending colon; D12.5 Benign neoplasm of sigmoid colon; K64.8 Other hemorrhoids | CPT/HCPCS: 45381; 45385 ==

== ENCOUNTER 2024-11-29 13:09 | Outpatient (AMB) | payer MEDICARE, SELFPAY ==
[2024-11-29 13:12] VITALS: BP 158/60; PULSE 75; RESP 18; TEMP 36.2; O2SAT 96; BMI 29.6
--- NOTE | 2024-11-29 13:12 | A.OFFPC_ITS ---
Vital Signs 11/29/24 13:12 Height 5 ft 3 in Weight 167 lb 6 oz BMI 29.6 BP 158/60 H Blood Pressure Location Lt brachial Position Sitting Respiration 18 Pulse 75 Pulse Source Pulse Oximeter Temp 97.1 F Temp Source Temporal Artery Scan Pulse Oximetry (%) 96 Oxygen Delivery Method Room Air Intake Visit Reasons: LT shoulder pain Charge Account Authorizer Required: No Accompanied by: Self / Same As Patient Allergies No Known Allergies Allergy (Verified 11/29/24 13:41) Medication List - Last Reconciled 11/29/24 by Heather Hernandez MD cholecalciferol (vitamin D3) 50 mcg PO DAILY 90 days diclofenac sodium 75 mg PO BID 90 days diclofenac sodium 1% 2 grams topical QID PRN 30 days famotidine 40 mg PO DAILY oxybutynin chloride ER 10 mg PO DAILY rosuvastatin 10 mg PO DAILY Held on 10/31/23. Instructions: Doctor's Order Tobacco use date assessed: 11/29/24 Fall risk assessment: No Falls in past year Last assessed Fall Risk: 11/29/24 Dental Screening Dental Screen Date: 11/29/24 Did you have a dental visit in the last 12 months?: Yes Did you have a dental problem in the last 6 months where you did not have access to dental care?: No Was dental information given to patient?: Patient has dentist HPI HPI Comments History of Present Illness Details The patient is a 69-year-old female presenting with bone pain and a bunion on the left foot. The patient reports significant bone pain affecting all her bones, with difficulty lying on her right hip due to pain. She has a history of osteopenia confirmed by a DEXA scan, for which she was advised to take calcium with vitamin D. Her medication adherence has been inconsistent due to a recent vacation. The patient also reports a painful bunion on her left foot, described as shiny and inflamed, causing significant discomfort. She has been advised to consult a fashion director for further evaluation and management. Additionally, the patient is overweight, which may contribute to her musculoskel etal complaints. She has been informed about the importance of maintaining her current weight to qualify for certain medical procedures. The patient experienced an episode of diarrhea at 2:00 AM, with an unknown cause, and plans to monitor the symptom for recurrence. [facility] Medical History (Updated 11/29/24 @ 14:52 by Heather Hernandez MD) Asthma DJD (degenerative joint disease) Overweight Physical exam Abnormal ultrasound of endometrium Urinary urgency Thickened endometrium Left flank pain Mass of right lower leg Varicose veins of right lower extremity with inflammation Left lower quadrant abdominal pain Multinodular goiter (nontoxic) Screening for malignant neoplasm of cervix Urinary incontinence Women's annual routine gynecological examination Heartburn Menopause GERD (gastroesophageal reflux disease) Obesity (BMI 30.0-34.9) Alopecia Varicose veins of lower extremities with inflammation Family history of breast cancer in sister Breast cancer screening, high risk patient Vitamin D deficiency Mixed dyslipidemia Hip pain, bilateral Metacarpophalangeal joint pain of right hand Shortness of breath on exertion Dyslipidemia (high LDL; low HDL) Arthritis Claudine's disease Surgical History Hx of section History of ear surgery Hx of cataract surgery Hx of shoulder surgery Family History Paternal Aunt Breast cancer Sister Breast cancer, Onset Age: 50 Father Esophageal cancer Maternal Uncle Cancer Mother Diabetes mellitus Sister Breast cancer, Onset Age: 52 Father Esophageal cancer, Onset Age: 69 Social History Household Members Other:: daughter Housing: Apartment Alcohol intake: never Patient Tobacco Use Status: Never used Tobacco e-Cigarette/Vaping Use: Never Used Second Hand Smoke Exposure: No service: No Current occupational status: retired Sexual orientation: Straight/Heterosexual Gender identity: Female Cognitive needs: No Hearing needs: No Vision needs: Yes Female Reproductive History Menstrual Age of Menarche: 15 Questionnaire PHQ-9 Over the last 2 weeks, how often have you been bothered by any of the following problems? 1. Little interest or pleasure in doing things: not at all 2. Feeling down, depressed, or hopeless: not at all 3. Trouble falling or staying asleep, or sleeping too much: not at all 4. Feeling tired or having little energy: not at all 5. Poor appetite or overeating: not at all 6. Feeling bad about yourself - or that you are a failure or have let yourself or your family down: not at all 7. Trouble concentrating on things, such as reading the newspaper or watching television: not at all 8. Moving or speaking so slowly that other people could have noticed. Or the opposite - being so fidgety or restless that you have been moving around a lot more than usual: not at all 9. Thoughts that you would be better off or of hurting yourself in some way: not at all Total score: 0 Depression Screening Interpretation: Negative Depression Screening Done: Yes 69857 - PHQ-9 Billing: Yes Source: Developed by Drs. Ricardo Davenport, Nicole Landrum, Gallo Medina and colleagues, with an educational tita from [employer]. Thrive Questionnaire Date Thrive assessed: 11/27/24 I am a: Patient What is your living situation today?: I have a steady place to live Within the past 12 months, did the food you bought not last and you didn't have the money to get more?: Never true Within the past 12 months, did you worry whether your food would run out before you got money to buy more?: Never true Do you have trouble paying for medicines?: No Do you have trouble getting transportation to medical appointments?: No Do you have trouble paying your heating and electricity bill?: No Do you have trouble taking care of your child, family member or friend?: No Do you have trouble with day-to-day activities such as bathing, preparing meals, shopping, managing finances, etc.?: No Are you currently unemployed and looking for a job?: No Are you interested in more education?: No Please select the resources that you would like help with: None Currently or been in a relationship where the following occur: No concerns reported THRIVE Score: 0 AUDIT C Alcohol Use Questionnaire (AUDIT-C) 1. How often do you have a drink containing alcohol?: Never Total Score: 0 Score Reviewed/Action Taken: No ROBIN-7 AMB Questionnaire ROBIN-7 Date ROBIN - 7 assessed: 04/04/24 Feeling nervous, anxious, or on edge: 0 = Not at all Not being able to stop or control worryin = Not at all Worrying too much about different things: 0 = Not at all Trouble relaxin = Not at all Being so restless that it is hard to sit still: 0 = Not at all Becoming easily annoyed or irritable: 0 = Not at all Feeling afraid as if something awful might happen: 0 = Not at all Total ROBIN-7 score (0-4 normal; 5-9 mild; 10-14 moderate; 15-21 severe): 0 Source: Developed by Drs. Ricardo Davenport, Nicole Landrum, Gallo Medina and colleagues, with an educational tita from [employer]. ROBIN-7 Assessment Billing ROBIN-7 Assessment Tool: ROBIN-7 Assessment 19417 Review of Systems Const All systems reviewed & are unremarkable except as noted in HPI and below Card Denies chest pain at rest, Denies chest pain with activity, Denies edema, Denies irregular heart rhythm, Denies claudication, Denies dyspnea, Denies dyspnea on exertion, Denies orthopnea, Denies paroxysmal nocturnal dyspnea and Denies slow heart rate Resp Denies cough, Denies dyspnea and Denies dyspnea on exertion Musc Denies atrophy, Denies deformity and Denies limited range of motion Skin/Breast Denies bleeding lesions, Denies changing lesions and Denies rash Physical exam (Primary Care) Vital Signs: Last Vital Signs Temp 97.1 F 11/29/24 13:12 Pulse 75 11/29/24 13:12 Resp 18 11/29/24 13:12 BP 158/60 H 11/29/24 13:12 Pulse Ox 96 11/29/24 13:12 Oxygen Delivery Method Room Air 11/29/24 13:12 BMI result Body Mass Index 29.6 Tobacco/Smoking Status: Tobacco use Status Tobacco use date assessed 11/29/24 11/29/24 13:21 Patient Tobacco Use Status Never used Tobacco 11/29/24 13:21 e-Cigarette/Vaping Use Never Used 11/29/24 13:21 PHQ-9: PHQ-9 Score PHQ-9: Total score 0 11/29/24 13:58 Depression Screening Interpretation: Negative Thrive Assessment: Date of Thrive Assessment Date Thrive assessed 11/27/24 11/29/24 13:21 Currently or been in a relationship where the following occur: No concerns reported Resp Effort & Inspection: normal respiratory effort Auscultation: clear to auscultation bilaterally Cardio Jugular venous distension: no JVD Rate: regular rate Rhythm: regular rhythm Heart sounds: S1 normal heart sound present and S2 normal heart sound present Extrem General: Yes full ROM Office Procedures Flu Questionnaire Does the patient have a severe egg allergy?: No Does the patient have severe life threatening allergies?: No Does the patient have a fever or illness today?: No Has the patient ever had Guillain-[place] Syndrome?: No Has the patient ever had any past reaction to a flu shot?: No Immunizations Fluarix [id number] (PF) 45 mcg (15 mcg x 3)/0.5 mL IM syringe Performing Provider: Heather Hernandez MD [facility] [place] [facility] Administered by: Leeanne Guzman CMA on 11/29/24 13:57 Dose Route Admin Location Dispensed Lot Number Expiration Date NDC Hood Maker 0.5 mL IM Left Deltoid 0.5 mL [id number] 08/15/25 [id number] Yun Yun VIS Given Date VIS Provided VIS Publication Date 11/29/24 Single Vaccine 24 Eligibility Eligibility Date Funding Source Not [facility] Eligible 11/29/24 Private Coding Level of Care Code Est Pt Level 4 (44160) Complex EM visit Add On G2211 Diagnoses Bunion of left foot M21.612 Polyarthralgia M25.50 Right hip pain M25.551 Left shoulder pain M25.512 Macromastia N62 Additional Codes ROBIN-7 Assessment Billing - ROBIN-7 Assessment Tool: ROBIN-7 Assessment 65769 ([id number]) PHQ-9 - 89339 - PHQ-9 Billing: Yes ([id number]) Time Spent (min) 21 Assessment & Plan Assessment & Plan (1) Bunion of left foot: Code(s): M21.612 - Bunion of left foot Category: Medical (2) Polyarthralgia: Code(s): M25.50 - Pain in unspecified joint Category: Medical (3) Right hip pain: Code(s): M25.551 - Pain in right hip Category: Medical (4) Left shoulder pain: Code(s): M25.512 - Pain in left shoulder Category: Medical (5) Macromastia: Code(s): N62 - Hypertrophy of breast Category: Medical Plan Plan Patient was informed and verbally consented to the use of an ambient scribe for clinic note documentation during this visit. 1. Osteopenia The patient has been diagnosed with osteopenia, confirmed by a recent DEXA scan. The treatment plan includes calcium and vitamin D supplementation to manage bone density. 2. Bunion On Left Foot The patient reports a painful bunion on the left foot, causing significant discomfort. A referral to podiatry has been made for further evaluation and potential intervention. 3. Bone Pain The patient experiences widespread bone pain, particularly affecting her ability to lie on her right hip. A referral to rheumatology is planned to explore potential underlying causes. 4. Overweight The patient is overweight, which may contribute to her musculoskeletal issues. She has been advised to maintain her current weight to qualify for certain medical procedures. Orders: Orders XR shoulder LT min 2V Today M25.512 - Pain in left shoulder Vitamin D 25-OH Total Today E55.9 - Vitamin D deficiency, unspecified Comprehensive [place]. Panel Fast Today M25.50 - Pain in unspecified joint Erythrocyte Sedimentation Rate Today M25.50 - Pain in unspecified joint Rheumatoid Factor Today M25.50 - Pain in unspecified joint Influenza [id number] Immunization Today Z23 - Encounter for immunization XR hip RT min 2V Today M25.551 - Pain in right hip Lipid Panel Today E78.5 - Hyperlipidemia, unspecified Cyclic Citrullinated Peptide Today M25.50 - Pain in unspecified joint C Reactive Protein Today M25.50 - Pain in unspecified joint Referrals Rheumatology Referral M25.50 - Pain in unspecified joint Podiatry Referral M21.612 - Bunion of left foot Plastic Surgery Referral N62 - Hypertrophy of breast Medications: New calcium acetate(phosphat bind) 667 mg PO BID 180 caps 1RF 90 days M85.80 - Other specified disorders of bone density and structure, unspecified site Refilled cholecalciferol (vitamin D3) 50 mcg PO DAILY 90 caps 1RF 90 days Resumed rosuvastatin 10 mg PO DAILY 90 tabs 1RF E78.2 - Mixed hyperlipidemia rosuvastatin 10 mg PO DAILY 90 tabs 1RF E78.2 - Mixed hyperlipidemia
--- OUTSIDE RECORDS SUMMARY | 2024-11-29 15:54 | XMS_ITS | Data Portability ---
Author Organization [place] [facility], Allergy Address [address] [place] [address] Care Team Providers Care Assembly Technician Name Role Phone PATI ESTRADA Primary Care Provider Assessment Encounter Date Assessment Date Assessment LastModified by Organization Details LastModified Time 05/10/2024 05/10/2024 Patient with history of otosclerosis, having undergone left-sided stapes surgery in [place] in the past. Physical exam shows mild scarring but otherwise appears healthy. Audiometric testing today shows mixed hearing loss in the left ear indicative of a partially functional stapes implant. Not enough conductive component of hearing loss to warrant consideration of revision surgery. We did discuss the fact that she would be a good candidate to consider amplification for this ear if it is bothering her enough to have a negative effect on her day-to-day hearing. She did not want to pursue that at this time. Certainly if her hearing should deteriorate over time, she is welcome to come back and see me to see if additional surgery or reconsideration of amplification is warranted. [email or web address] Not available 05/10/2024 15:15:16 06/21/2024 06/21/2024 Patient describe s symptoms of chronic rhinitis suggestive of underlying allergy. Recommend saline nasal irrigations, allergy skin testing and intranasal steroid/antihistam mono as prescribed. Environmental controls recommended [email or web address] Not available 06/21/2024 13:19:47 08/12/2024 08/12/2024 1. Allergic Rhinitis The patient has moderate sensitivity to environmental allergens which is contributing to her nasal symptoms, though she is experiencing some recent improvement. We went over potential treatments which include desensitization through allergy shots over several years with potential reduction in sensitivity. However, the patient chooses to maintain her current regimen of Montelukast and Claritin. She will continue accessing these medications over the counter. Should she experience asthma exacerbations reminiscent of previous episodes, intervention will be sought with her healthcare provider. [email or web address] Not available 08/12/2024 11:04:41 Plan of Treatment Reminders Order Date Submit Date Provider Last Modified By Organization Details Last Modified Time Details Appointments None recorded. Lab None recorded. Referral None recorded. Procedures allergy testing, skin prick (PROC) 2024 025 [email or web address] Not available 12:11:44 intradermal allergy skin testing (PROC) 2024 025 [email or web address] Not available 12:11:49 pulmonary function test procedure (PROC) 2024 025 Not available 12:11:55 pulse oximetry (PROC) 2024 025 [email or web address] Not available 12:12:02 Surgeries None recorded. Imaging None recorded. Medication Orders None recorded. Patient TargetsNo targets recorded. Patient Instructions Encounter Date Encounter Id Patient Instructions Last Modified By Organization Details Last Modified Time 08/02/2024 [id number] Nursing Documentation for Allergy Testing: Ordering Provider Dr. Yoo Weight:lbs: kg: PFT Yes With Bronchodilator approval needed to proceed with allergy testing? ok'd testing History of Asthma:No Asthma Meds: Last used: Asthma exacerbated by: Chance that : No Fear of needles: Yes Regular medications reviewed in Computer: Yes Medication allergies: Reviewed Antihistamine use: No Medications used: Food Allergies: Any foods make your mouth feeling itchy: No If yes: History of severe reaction where had to go to ER? No If yes details: Type of heat in home: Radiator Pets: No If yes: Smoker: Never If former smoker-how much / day for how long When quit years ago Smoking now-how much /day for how long Occupation/Social History: retired Symptoms having: Other If other: sneezing Frequency Seasonally Spirometry Contraindications: Heart attack in the last 3 months: No Major surgery in last 3 months: No Detached retina(serious eye issues) in last 2 months: No Hospitilization in last month: No Proceed with PFT Yes approval needed: No Nursing Notes: Pt tolerated test well Yes Benadryl cream to test sites Yes Patient became syncopal-placed in supine position No Large reactions to MQT, reschedule IDT for a different date No Other: Written by: Deepthi Hopkins [email or web address] Not available 08/02/2024 11:25:53 08/12/2024 [id number] Please note: Par ts of this encounter note have been generated by AI based on audio conversation. Patient consent was required prior to utilizing this technology. Content review was required prior to finalizing the note. [email or web address] Not available 08/12/2024 11:04:41 Reason for Referral None Reported. Results Created Date Observation Date Name Description Value Unit Range Abnormal Flag Note LastModifiedBy Organization Detail LastModifiedTime 05/12/19 audio gram No observ ation record ed. BARCODE Not Available 2024 11:03:37 08/03/19 josué metry testi ng* No observ ation record ed. Not Available 2024 09:32:06 Result Notes None recorded. 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 9785046720780 7 Active 2024 CAMERON MATOS [address] [address], [place], [address], [facility] - [facility] 5 14:29:51 Otosclerosi s of ossicle of left ear 7378924660649 105 Active 2024 ERNA YOO MD [address] [address], [place], [address], [place] [facility] 5 15:07:29 Seasonal allergy 838908088 Active 2024 COLEEN PEREIRA MD [address] [address], [place], [address], [facility] - [facility] 5 13:18:09 Allergic rhinitis caused by pollen 34115469 Active 2024 COLEEN PEREIRA MD [address] [address], [place], [address], [place] - [facility] 13:18:13 Allergic rhinitis 18248481 Active 2024 COLEEN PEREIRA MD 100 [facility] 100, [place], [address], [place] [facility] 13:18:48 Perennial allergic rhinitis 631407708 Active 2024 NIDHI KIMBROUGH [address] [address], [place], [address], [place] [facility] 09:28:59 Problem Notes None recorded. Procedures Surgical History Date Name Laterality Status Provider Name and Address Organization Details Recorded Time Allergy Testing-Full completed ROSEMARIE KIMBROUGH [address] [address], [place], [address], [facility] - [facility] 08/02/2024 11:25:08 Comp Audio with Tymps - 99576 & 72811 completed CAMERON MATOS [address] [address], [place], [address], [facility] - [facility] 05/10/2024 14:29:33 section completed Pati Merlos [place] - [facility] 05/10/2024 14:08:03 Ear Surgery completed Pati Merlos [place] [facility] 05/10/2024 14:08:10 Cataract Surgery completed Pati Merlos [place] - [facility] 05/10/2024 14:08:15 Imaging Results None recorded. Procedure Notes None recorded. Medical Equipment None Reported. Allergies No known drug allergies Medications Name Sig Start Date Stop Date Status Note LastModified by Organization Details LastModified Time amoxicillin 500 mg capsule TAKE 1 TABLET BY MOUTH EVERY 8 HOURS UNTIL FINISHED active Not Available Not Available No t Available trazodone 50 mg tablet TOME KATELYN TABLETA POR V A ORAL CADA NOCHE AL ACOSTARSE CUANDO SEA NECESARIO PARA DORMIR 05/10 completed Not Available Not Available Not Available oxybutynin chloride ER 10 mg tablet,exte nded release 24 hr TOME KATELYN TABLETA POR V A ORAL TODOS LOS D active Not Available Not Available No t Available valacyclovi r 500 mg tablet TAKE 4 TABLETS BY MOUTH TWICE DAILY FOR 1 DAY 12 HOURS BETWEEN DOSES 05/10 completed Not Available Not Available Not Available diclofenac sodium 75 mg tablet,aura yed release TOME KATELYN TABLETA POR V A ORAL DOS VECES AL D A 05/10 completed Not Available Not Available Not Available ibuprofen 600 mg tablet TOME 1 TABLETA POR V A ORAL PEARL VECES AL D A CUANDO SEA NECESARIO PARA EL DOLOR 05/10 completed Not Available Not Available Not Available rosuvastati n 10 mg tablet TOME KATELYN TABLETA POR V A ORAL TODOS LOS D active Not Available Not Available No t Available famotidine active Not Available Not Av ailable Not Available montelukast active Not Available Not A vailable Not Available diclofenac 1 % topical gel PLEASE SEE ATTACHED FOR DETAILED DIRECTION S 05/10 completed Not Available Not Available Not Available cholecalcif rhiannon (vitamin D3) 50 mcg (2,000 unit) capsule TOME 1 C PSULA POR V A ORAL TODOS LOS D active Not Available Not Available No t Available Paxlovid 300 mg (150 mg x 2)-100 mg tablets in a dose pack TOME PEARL TABLETAS POR V A ORAL DOS VECES AL D A POR 5 D 05/10 completed Not Available Not Available Not Available Vitals Date Recorded Body height Body mass index (BMI) Body weight Provider Name and Address Organization Details Last Updated DateTime 06/21/2024 160.02 cm 29.4 kg/m2 05794.33 g MAYELIN LEVY [place] - [facility] 06/21/2024 13:04:58 Date Recorded Body height Body mass index (BMI) Body weight Oxygen saturation Oxygen saturation in Arterial blood by Pulse oximetry Heart rate Systolic And Diastolic Provider Name and Address Organization Details Last Updated DateTime 160.02 cm 29.8 kg/m2 01891.5 2 g 97 % 97 % 65 /min 146/74 mm[Hg] DEEPTHI HOPKINS, A [address], [place], [address] [place], [place] - [facility] 09:24:09 Date Recorded Body height Provider Name an d Address Organization Details Last Updated DateTime 08/12/2024 160.02 cm MAYELIN LEVY [place] [facility] 08/12/2024 10:46:59 Social History None recorded. Functional Status None recorded. Mental Status None recorded. Family History Nothing Reported. Medical History Condition Response Hyperlipidemia Y Hearing Loss Y Arthritis Y GERD/Reflux Y Gynecological HistoryNo gynecological history recorded. Obstetrics History GPAL:G 0 P 0 0 0 0 Past Encounters Encounter ID Performer Location Encounter Start Date Encounter Closed Date Diagnosis/Indication Diagnosis SNOMED-CT Code Diagnosis ICD10 Code Diagnosis IMO Codes Diagnosis Note [id number] ERNA YOO MD [facility] [address] [address] 05/10/2024 13:44:32 05/10/2024 15:16:26 Mixed conductive and sensorineural hearing loss of left ear [id number] 9107 H90.A32 Audiologic al evaluation results: 05/10/2024 Right ear: Normal through 6 kHz sloping to a mild sensorineu ral hearing loss with excellent word recognitio n. Left ear: Mild sloping to a moderate mixed hearing loss with excellent word recognitio n. Tympanomet ry: Right Ear:Type A Left Ear:Type B Otoscleros is of ossicle of left ear 2911843145 397004 H80.92 [id number] COLEEN PEREIRA MD [facility] [address] [address] 06/21/2024 12:37:12 06/21/2024 13:22:21 Allergic rhinitis caused by pollen 05504252 J30.1 [id number] Allergic rhinitis 047600 04 J30.9 [id number] ERNA YOO MD Allergy [address] [place] [address] 08/02/2024 08:49:13 08/02/2024 12:11:31 Perennial allergic rhinitis 593224044 J30.89 652904 poor effort [id number] COLEEN PEREIRA MD [facility] [place] [address] [place] [address] 08/12/2024 10:34:31 08/12/2024 11:04:42 Allergic rhinitis caused by pollen 39803341 J30.1 [id number] Health Concerns Section Related Observation LastModified by Organization Detai ls LastModified Time None Recorded Concern Status LastModified by Organization Details LastModified Time None Recorded Advance Directives Directive None Recorded Payers Insurance Date Sequence Insurance Name Policy Number Policy Valencia Covered Member ID Valencia Member ID Guarantor Name 08/12/2024 1 [facility] [id number] Julia Cooper [id number] Julia Cooper Notes Date Note Type Note Provider Name and Address Organization Details Recorded Time 05/10/2024 text/html Patient comes in today for evaluation of hearing loss. She reports having had left-sided stapes surgery in [place] about 10 years ago. Patient reports significant improvement in the hearing following surgery, but she thinks that the results have deteriorated over the past 10 years. Patient does notice difficulty hearing in challenging listening situations such as groups. Today's visit carried out using chaperone ERNA YOO MD [address] [facility],[address] [address], [place], [address], [facility] - [facility] 05/10/2024 15:19:27 06/21/2024 text/html ROS as noted in the HPI ipad - spanishallergiessx sneezing in AM and PM seasonal before , Mar/April and summertrial of claritin, singulair (from [facility])no previous trial [facility] 05/10/24 Fredo - Hx of left-sided stapes surgery 2015 in [place], did not advise further surgery at this time COLEEN PEREIRA MD [address] [facility], [place], [address], [facility] - [facility] 06/21/2024 13:20:00 08/12/2024 text/html 08/02/2024 allergy skin test Moderate Tree, weed, mold ipad - belgian allergies sx sneezing in AM and PM seasonal before , and summer trial of claritin, singulair (from grandson) no previous trial of flonase no previous allergy testing asthma when she was a child PV 05/10/24 Fredo - Rossi of left-sided stapes surgery 2015 in [place], did not advise further surgery at this time The patient is a 69-year-old female presenting with allergic rhinitis. Her skin testing two weeks ago demonstrated moderate sensitivity to environmental allergens such as trees, weeds, and molds. Her primary complaint was severe nasal congestion, which has recently improved. She manages symptoms with Montelukast and Claritin. Historical asthma was mentioned but is currently stabilized, with no recent exacerbations. COLEEN PEREIRA MD [address] [place] [address], [phone], [facility] - [facility] 08/12/2024 13:03:05 OBGyn Episode No OBEpisode recorded.
--- OUTSIDE RECORDS SUMMARY | 2024-11-29 15:54 | XMS_ITS | Clinical Summary ---
Author Organization [facility] Address [address] [place] [address] Phone Care Team Providers Care Political Science Faculty Member Name Role Phone Kadi Urena MD Primary [...] 2 (two) times a day. 60 each 11/10/19 Active Problems Problem Noted Date Diagnosed Date Seasonal allergies 06/21/2024 Perennial allergic rhinitis 06/21/2024 Allergic rhinitis due to pollen 06/21/2024 Otosclerosis of ossicle of left ear 05/10/2024 Mixed conductive and sensorineural hearing loss of left ear 05/10/2024 Encounters Date Type Department Care Team Description 10/10/2024 12:28 PM EDT - 10/10/2024 12:54 PM EDT Emergency [facility] Emergency [address] [place] [address] Shabbir Muse MD Enterovirus infection [...] Zoster Vaccines (2 of 2) 08/10/2024 06/15/2024 Falls Risk Assessment 10/10/2024 Hepatitis C Screening 10/10/2024 Medicare Annual Wellness Visit 10/10/2024 Osteoporosis Screening (Bone Density Screening) 10/10/2024 Social Influencers of Health Screening 10/10/2024 COVID-19 Vaccine (3 - 2024-2 6 season) 2024 08/20/2020, 07/30/2020 Influenza Vaccine (#1) 2024 , 12/14/2020 Colorectal Cancer Screening: FIT-DNA (Cologuard) 08/23/2027 08/22/2024, 08/22/2024 RSV Immunization Adult Patients (1 - 1-dose [...] HEALTHCARE MEDICARE [place]ICAID - [place] Care Teams Political Science Faculty Member Relationship Specialty Start Date End Date Kadi Urena MD [address] [place] [address] PCP - General Internal Medicine 08/07/20
== END 2024-11-29 14:13 | disposition home or self-care (01) ==
LOC: HO.HMCH 13:09
PROVIDERS: PCP Internal Medicine; Visit Provider Internal Medicine
DX: M21.612 Bunion of left foot (principal); M25.50 Pain in unspecified joint; M25.551 Pain in right hip; M25.512 Pain in left shoulder; N62 Hypertrophy of breast; Z23 Encounter for immunization

== ENCOUNTER → 2024-11-29 13:09 | Outpatient (BNVA) | payer MEDICARE, SELFPAY | PROVIDERS: PCP Internal Medicine; Visit Provider Internal Medicine | DX: M21.612 Bunion of left foot (principal); R19.7 Diarrhea, unspecified; M25.551 Pain in right hip; M25.512 Pain in left shoulder; N62 Hypertrophy of breast; M85.80 Other specified disorders of bone density and structure, unspecified site; E78.2 Mixed hyperlipidemia; E66.3 Overweight; Z68.29 Body mass index [BMI] 29.0-29.9, adult; Z23 Encounter for immunization | CPT/HCPCS: 90471; 90656; 96127; 99212 ==

== ENCOUNTER 2024-12-21 09:52 | Outpatient (AMB) | payer MEDICARE, SELFPAY ==
--- NOTE | 2024-12-21 10:01 | MHC.OFFVIS ---
Vital Signs 12/21/24 10:01 Height 5 ft 2 in Intake Visit Reasons: Dexa results Bilingual Administrative Assistant Required: Yes Bilingual Administrative Assistant Services: Bilingual Administrative Assistant Present (anneliese) Information Interpreted: non-clinical & clinical Allergies No Known Allergies Allergy (Verified 12/21/24 10:02) Medication List - Last Reconciled 12/21/24 by Hallie Yadav LPN calcium acetate(phosphat bind) 667 mg PO BID 90 days cholecalciferol (vitamin D3) 50 mcg PO DAILY 90 days diclofenac sodium 75 mg PO BID 90 days diclofenac sodium 1% 2 grams topical QID PRN 30 days famotidine 40 mg PO DAILY oxybutynin chloride ER 10 mg PO DAILY rosuvastatin 10 mg PO DAILY Do you need a note to return to daycare/school/sports/work: No HPI Comments Details: Presenting for DEXA scan follow-up which showed the following: The bone mineral density of the lumbar spine is 1.203 g/cm2, corresponding to a T-score of 0.2, and a Z-score of 1.4. This is indicative of normal bone mineral density. This represents a BMD change of 3.4% compared to the prior exam. This is statistically significant. The bone mineral density of the left total hip is 0.993 g/cm2, corresponding to a T-score of -0.1, and a Z-score of 0.9. This is indicative of normal bone mineral density. This represents a BMD change of -3.9% compared to the prior exam. This is statistically significant. The bone mineral density of the left femoral neck is 0.890 g/cm2, corresponding to a T-score of -1.1, and a Z-score of 0.2. This is indicative of osteopenia. This represents a BMD change of 3.2% compared to the prior exam. FRACTURE RISK: The FRAX index suggests a ten year probability of major osteoporotic fracture of 4.7%, and of hip fracture 0.4%. MM/XR DEXA axial skeleton IMPRESSION: Based on bone mineral density, and according to World Health Organization (WHO) criteria, the diagnosis is consistent with osteopenia. [facility] Medical History Asthma DJD (degenerative joint disease) Overweight Physical exam Abnormal ultrasound of endometrium Urinary urgency Thickened endometrium Left flank pain Mass of right lower leg Varicose veins of right lower extremity with inflammation Left lower quadrant abdominal pain Multinodular goiter (nontoxic) Screening for malignant neoplasm of cervix Urinary incontinence Women's annual routine gynecological examination Heartburn Menopause GERD (gastroesophageal reflux disease) Obesity (BMI 30.0-34.9) Alopecia Varicose veins of lower extremities with inflammation Family history of breast cancer in sister Breast cancer screening, high risk patient Vitamin D deficiency Mixed dyslipidemia Hip pain, bilateral Metacarpophalangeal joint pain of right hand Shortness of breath on exertion Dyslipidemia (high LDL; low HDL) Arthritis Claudine's disease Surgical History Hx of section History of ear surgery Hx of cataract surgery Hx of shoulder surgery Family History Paternal Aunt Breast cancer Sister Breast cancer, Onset Age: 50 Father Esophageal cancer Maternal Uncle Cancer Mother Diabetes mellitus Sister Breast cancer, Onset Age: 52 Father Esophageal cancer, Onset Age: 69 Social History Household Members Other:: daughter Housing: Apartment Alcohol intake: never Patient Tobacco Use Status: Never used Tobacco e-Cigarette/Vaping Use: Never Used Second Hand Smoke Exposure: No service: No Current occupational status: retired Sexual orientation: Straight/Heterosexual Gender identity: Female Cognitive needs: No Hearing needs: No Vision needs: Yes Female Reproductive History Menstrual Age of Menarche: 15 Review of Systems Const All systems reviewed & are unremarkable except as noted in HPI and below Reports as per HPI and Reports no additional complaints GI Reports no additional complaints Reports no additional complaints Assessment & Plan Assessment & Plan (1) Osteopenia: Code(s): M85.80 - Other specified disorders of bone density and structure, unspecified site Category: Medical Plan: Discussed with the patient the DEXA results and FRAX risk. FRAX risk and T score showed no evidence of osteoporosis. Discussed with the patient all the options for osteoporosis prevention including lifestyle modifications including Ca+D supplements 1200 mg po qd/800 MIU, Weight bearing exercises and proteine supplements. The patient verbalized understanding and agreed plan will repeat DEXA in 2 years. Coding Level of Care Code Est Pt Level 3 (46239) Diagnoses Osteopenia M85.80
--- OUTSIDE RECORDS SUMMARY | 2024-12-21 11:11 | XMS_ITS | Data Portability ---
Author Organization [place] [facility], Allergy Address [address] [place] [address] Care Team Providers Care Hyperbaric Technician Name Role Phone PATI ESTRADA Primary Care Provider Assessment Encounter Date Assessment Date Assessment LastModified by Organization Details LastModified Time 05/10/2024 05/10/2024 Patient with history of otosclerosis, having undergone left-sided stapes surgery in [place] in the past. Physical exam shows mild [...] surgery or reconsideration of amplification is warranted. Not available 05/10/2024 15:15:16 06/21/2024 06/21/2024 Patient [...] allergy testing, skin prick (PROC) 2024 025 [email or web address] Not available 12:11:44 intradermal allergy skin testing (PROC) 2024 025 [email or web address] Not available 12:11:49 pulmonary function test procedure (PROC) 2024 025 [email or web address] Not available 12:11:55 pulse oximetry (PROC) 2024 025 [email or web address] Not available 12:12:02 Surgeries None recorded. Imaging None recorded. Medication Orders None recorded. Patient TargetsNo targets recorded. Patient Instructions Encounter Date Encounter Id Patient Instructions Last Modified By Organization Details Last Modified Time 08/02/2024 [id number] Nursing Documentation for Allergy Testing: Ordering Provider [...] date No Other: Written by: Deepthi Hopkins [email or web address] Not available 08/02/2024 11:25:53 08/12/2024 [id number] Please note: Par ts of this encounter [...] testi ng* No observ ation record ed. [email or web address] Not Available 2024 09:32:06 Result Notes None recorded. 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 8367569248509 7 Active 2024 CAMERON MATOS [address] [address], [facility] [place] [address], [facility] - [facility] 5 14:29:51 Otosclerosi s of ossicle of left ear 3083296857651 105 Active 2024 ERNA YOO MD [address] [address], [facility] [place], [address], [place] [facility] 5 15:07:29 Seasonal allergy 906998853 Active 2024 COLEEN PEREIRA MD [address] [address], [facility] [place], [address], [facility] - [facility] 5 13:18:09 Allergic rhinitis caused by pollen 30623715 Active 2024 COLEEN PEREIRA MD [address] [address], [place], [address], [place] - [facility] [place] 13:18:13 Allergic rhinitis 51066542 Active 2024 COLEEN PEREIRA MD 100 [facility], [place], [address], [place] - [facility] [place] 13:18:48 Perennial allergic rhinitis 762779703 Active 2024 NIDHI KIMBROUGH [address] [address], [place], [address], [place] - [facility] 09:28:59 Problem Notes None recorded. Procedures Surgical History Date Name Laterality Status Provider Name and Address Organization Details Recorded Time Allergy Testing-Full completed ROSEMARIE KIMBROUGH [address] [address], [place], [address], [facility] - [facility] 08/02/2024 11:25:08 Comp Audio with Tymps - 54102 & 13515 completed CAMERON MATOS [address] [address], [place], [address], [facility] - [facility] 05/10/2024 14:29:33 section completed Pati Merlos [place] - [facility] 05/10/2024 14:08:03 Ear Surgery completed Pati [place]los [place] [facility] 05/10/2024 14:08:10 Cataract Surgery completed Pati Merlos [place] [facility] 05/10/2024 14:08:15 Imaging Results None recorded. Procedure [...] Available rosuvastati n 10 mg tablet TOME KATEYLN TABLETA POR V A ORAL TODOS LOS [...] Updated DateTime 06/21/2024 160.02 cm 29.4 kg/m2 86426.33 g MAYELIN LEVY [place] [facility] 06/21/2024 13:04:58 Date Recorded Body height Body mass index (BMI) Body weight Oxygen saturation Oxygen saturation in Arterial blood by Pulse oximetry Heart rate Systolic And Diastolic Provider Name and Address Organization Details Last Updated DateTime 160.02 cm 29.8 kg/m2 28847.5 2 g 97 % 97 % 65 /min 146/74 mm[Hg] DEEPTHI HOPKINS, A [address], [place], [address] [place], [place] - [facility] 09:24:09 Date Recorded Body height Provider Name an d Address Organization Details Last Updated DateTime 08/12/2024 160.02 cm MAYELIN LEVY [place] [facility] 08/12/2024 10:46:59 Social History None recorded. Functional Status None recorded. Mental Status None recorded. Family History Nothing Reported. Medical History Condition Response Arthritis Y Hearing Loss Y Hyperlipidemia Y GERD/Reflux Y Gynecological HistoryNo gynecological history recorded. Obstetrics History GPAL:G 0 P 0 0 0 0 Past Encounters Encounter ID Performer Location Encounter Start Date Encounter Closed Date Diagnosis/Indication Diagnosis SNOMED-CT Code Diagnosis ICD10 Code Diagnosis IMO Codes Diagnosis Note [id number] ERNA YOO MD [facility] [address] [address] 05/10/2024 13:44:32 05/10/2024 15:16:26 Mixed conductive and sensorineural hearing loss of left ear 3207614971 9107 H90.A32 Audiologic al evaluation results: 05/10/2024 Right ear: Normal through 6 kHz sloping to a mild sensorineu ral hearing loss with excellent word recognitio n. Left ear: Mild sloping to a moderate mixed hearing loss with excellent word recognitio n. Tympanomet ry: Right Ear:Type A Left Ear:Type B Otoscleros is of ossicle of left ear 0463029766 479823 H80.92 [id number] COLEEN PEREIRA MD [facility] [address] [address] 06/21/2024 12:37:12 06/21/2024 13:22:21 Allergic rhinitis caused by pollen 29106336 J30.1 12585091 Allergic rhinitis 216251 04 J30.9 [id number] ERNA YOO MD [facility] [address] [place] [address] 08/02/2024 08:49:13 08/02/2024 12:11:31 Perennial allergic rhinitis 145593624 J30.89 968769 poor effort [id number] COLEEN PEREIRA MD [facility] [place] [address] [place] [address] 08/12/2024 10:34:31 08/12/2024 11:04:42 Allergic rhinitis caused by pollen 71472873 J30.1 69305518 Health Concerns Section Related Observation LastModified by Organization Detai ls LastModified Time None Recorded Concern Status LastModified by Organization Details LastModified Time None Recorded Advance Directives Directive None Recorded Payers Insurance Date Sequence Insurance Name Policy Number Policy Valencia Covered Member ID Valencia Member ID Guarantor Name 08/12/2024 1 [facility] [id number] Julia Cooper [id number] Julia Cooper Notes Date Note Type Note Provider Name and Address Organization Details Recorded Time 05/10/2024 text/html Patient comes in today for evaluation of hearing loss. She reports having had left-sided stapes surgery in [place] about 10 years ago. Patient reports significant improvement in the hearing following surgery, but she thinks that the results have deteriorated over the past 10 years. Patient does notice difficulty hearing in challenging listening situations such as groups. Today's visit carried out using scribing machine operator ERNA YOO MD 100 [facility],[address] [address], [place], [address], [facility] - [facility] 05/10/2024 15:19:27 06/21/2024 text/html ROS as noted in the HPI ipad - spanishallergiessx sneezing in AM and PM seasonal before , Mar/April and summertrial of claritin, singulair ([facility]no previous [facility] [place] [facility] 05/10/24 Fredo - Hx of left-sided stapes surgery 2015 in [place], did not advise further surgery at this time COLEEN PEREIRA MD 100 [facility], [place], [address], [facility] - [facility] 06/21/2024 13:20:00 08/12/2024 text/html 08/02/2024 allergy skin test Moderate Tree, weed, mold ipad - namibian allergies sx sneezing in AM and PM seasonal before , and summer trial of claritin, singulair (from grandson) no previous trial of flonase no previous allergy testing asthma when she was a child PV 05/10/24 Fredo - Rossi of left-sided stapes surgery 2015 in [place], did not advise further surgery at this [...] with no recent exacerbations. COLEEN PEREIRA MD [address] [place] [address], [phone], [facility] - [facility] 08/12/2024 13:03:05 OBGyn Episode No OBEpisode recorded.
--- OUTSIDE RECORDS SUMMARY | 2024-12-21 11:11 | XMS_ITS | Clinical Summary ---
Author Organization [facility] Address [address] [place] [address] Phone Care Team Providers Care Casting Machine Set Up Operator Name Role Phone Kadi Urena MD Primary Care Provider Allergies No known active allergies Medications rosuvastatin (CRESTOR) 10 mg tablet Take 1 tablet (10 mg total) by mouth 1 (one) time each day. Active montelukast sodium (SINGULAIR ORAL) Take 1 tablet by mouth 1 (one) time each day. Active Active Problems Problem Noted Date Diagnosed Date Seasonal allergies 06/21/2024 Perennial allergic rhinitis 06/21/2024 Allergic rhinitis due to pollen 06/21/2024 Otosclerosis of ossicle of left ear 05/10/2024 Mixed conductive and sensorineural hearing loss of left ear 05/10/2024 Encounters Date Type Department Care Team Description 10/10/2024 12:28 PM EDT - 10/10/2024 12:[address] [facility] Emergency [address] [place] [address] Shabbir Muse MD Enterovirus infection [...] HEALTHCARE MEDICARE [place]ICAID - [place] Care Teams Casting Machine Set Up Operator Relationship Specialty Start Date End Date Kadi Urena MD [address] [place] [address] PCP - General Internal Medicine 08/07/20
== END 2024-12-21 10:47 | disposition home or self-care (01) ==
PROVIDERS: PCP Internal Medicine; Visit Provider Obstetrics & Gynecology
DX: M85.80 Other specified disorders of bone density and structure, unspecified site (principal)
CPT/HCPCS: 99213

== ENCOUNTER → 2024-12-21 09:52 | Outpatient (BNVA) | payer MEDICARE, SELFPAY | PROVIDERS: PCP Internal Medicine; Visit Provider Obstetrics & Gynecology | DX: M85.80 Other specified disorders of bone density and structure, unspecified site (principal) | CPT/HCPCS: 99212 ==

== ENCOUNTER 2025-01-10 09:50 | Outpatient (AMB) | payer MEDICARE, SELFPAY ==
--- NOTE | 2025-01-10 10:13 | A.OFFVIS_ITS ---
Vital Signs 01/10/25 10:15 Height 5 ft 2 in Weight 167 lb BMI 30.5 Intake Visit Reasons: Bunion Left foot Intake Note: Julia is a 69 year old female who presents today as a new patient for an evaluation of her left bunion. Patient reports she has had the bilateral bunion for a long time and recently the pain has worsened. She states she has not tried a bunion sleeve only pain relief cream and she has found slight relief for her symptoms. Sales Assistant Institutional Sales Required: Yes Sales Assistant Institutional Sales Services: Sales Assistant Institutional Sales Present Sales Assistant Institutional Sales Name: [id number] Allergies No Known Allergies Allergy (Verified 01/10/25 10:15) HPI Comments Details: The patient is a 69-year-old individual with a past medical history as seen below presenting with bilateral painful bunions, worse to the left. The patient reports having experienced foot pain for a long duration, which varies depending on the type of shoe worn. The pain is described as persistent and significant, impacting daily activities. Patient states the pain ranges from moderate to severe. Conservative measures such as wearing shoes with a wider toe box, inserts, and using bunion sleeves have been attempted, but they only provide my temporary relief. The patient expresses a preference for surgical intervention as a definitive solution to the pain caused by her bunion due to the adverse effects on her daily activities. She denies any recent pedal injuries. She denies any other pedal concerns. [facility] Medical History (Updated 01/10/25 @ 10:35 by Maryellen Yusuf DPM) Hallux valgus, bilateral Bilateral foot pain Asthma DJD (degenerative joint disease) Overweight Physical exam Abnormal ultrasound of endometrium Urinary urgency Thickened endometrium Left flank pain Mass of right lower leg Varicose veins of right lower extremity with inflammation Left lower quadrant abdominal pain Multinodular goiter (nontoxic) Screening for malignant neoplasm of cervix Urinary incontinence Women's annual routine gynecological examination Heartburn Menopause GERD (gastroesophageal reflux disease) Obesity (BMI 30.0-34.9) Alopecia Varicose veins of lower extremities with inflammation Family history of breast cancer in sister Breast cancer screening, high risk patient Vitamin D deficiency Mixed dyslipidemia Hip pain, bilateral Metacarpophalangeal joint pain of right hand Shortness of breath on exertion Dyslipidemia (high LDL; low HDL) Arthritis Claudine's disease Surgical History Hx of section History of ear surgery Hx of cataract surgery Hx of shoulder surgery Family History Paternal Aunt Breast cancer Sister Breast cancer, Onset Age: 50 Father Esophageal cancer Maternal Uncle Cancer Mother Diabetes mellitus Sister Breast cancer, Onset Age: 52 Father Esophageal cancer, Onset Age: 69 Social History Household Members Other:: daughter Housing: Apartment Alcohol intake: never Patient Tobacco Use Status: Never used Tobacco e-Cigarette/Vaping Use: Never Used Second Hand Smoke Exposure: No service: No Current occupational status: retired Sexual orientation: Straight/Heterosexual Gender identity: Female Cognitive needs: No Hearing needs: No Vision needs: Yes Female Reproductive History Menstrual Age of Menarche: 15 Review of Systems Const Details: - Musculoskeletal: Reports persistent bilateral foot pain associated with a bunion, left worse than right. All systems reviewed & are unremarkable except as noted in HPI and below Physical Exam Vital Signs: BMI result Body Mass Index 30.5 Extrem Other: Bilateral lower extremity focused physical exam: Derm: No open lesions, abrasions, or wounds noted. Skin supple and turgor WNL. No ecchymosis or discoloration noted. No clincal signs of infection noted. Vasc: DP/PT pulses palpable. CFT < 3 secs. Temp gradient warm to warm. Pedal hair absent. Mild edema noted to the medial prominences of the 1st metatarsals B/L. Neuro: Protective sensations grossly intact. MSK: Pain on palpation to the 1st metatarsals B/L. Pain with ROM of 1st MPJ. No crepitus or fluctuance noted. Tracking HAV noted. Mildly antalgic gait unassisted noted. MMT 5/5. ROM of the hindfoot and ankles WNL. Results Reviewed Results Reviewed: Ordered bilateral weight-bearing three-view foot x-rays to be performed prior to next visit. Assessment & Plan Assessment & Plan (1) Bilateral foot pain: Code(s): M79.671 - Pain in right foot; M79.672 - Pain in left foot Category: Medical (2) Hallux valgus, bilateral: Code(s): M20.11 - Hallux valgus (acquired), right foot; M20.12 - Hallux valgus (acquired), left foot Category: Medical Plan Patient was informed and verbally consented to the use of an ambient scribe for clinic note documentation during this visit. I discussed with the patient conservative versus surgical treatment for bunions. We reviewed the various surgical options available depending on the severity of the condition. We talked about the need for x-rays to determine the best surgical approach. I outlined the recovery process, including the need for limited weight-bearing and physical therapy. - Ordered bilateral foot weightbearing three-view x-rays to be performed prior to next visit. - Discussed various surgical options and stated surgical option is dependent on results from x-rays. - Due to patient's pain levels in severity to the left foot, discussed with patient performing surgery on the left foot would be beneficial. - Prescribed meloxicam to be taken PRN for pain. RTC in 2 weeks. Orders: Orders XR Foot Gumaro 3V 01/10/25 M20.11 - Hallux valgus (acquired), right foot, M20.12 - Hallux valgus (acquired), left foot, M79.671 - Pain in right foot, M79.672 - Pain in left foot Medications: New meloxicam 15 mg PO DAILY 30 tabs 0RF M20.11 - Hallux valgus (acquired), right foot, M20.12 - Hallux valgus (acquired), left foot, M79.671 - Pain in right foot, M79.672 - Pain in left foot Coding Level of Care Code New Pt Level 4 (92709) Diagnoses Bilateral foot pain M79.671; M79.672 Hallux valgus, bilateral M20.11; M20.12 Time Spent (min) 46
[2025-01-10 10:15] VITALS: BMI 30.5
--- OUTSIDE RECORDS SUMMARY | 2025-01-10 11:36 | XMS_ITS | Clinical Summary ---
Author Organization [facility] Address [address] [place] [address] Phone Care Team Providers Care Plisse Machine Operator Name Role Phone Kadi Urena MD [...] EDT - 10/10/2024 12:54 PM EDT Emergency [facility] Emergency [address] [place] [address] Shabbir Muse MD Enterovirus infection [...] HEALTHCARE MEDICARE [place]ICAID - [place] Care Teams Plisse Machine Operator Relationship Specialty Start Date End Date Kadi Urena MD [address] [place] [address] PCP - General Internal Medicine 08/07/20
== END 2025-01-10 10:35 | disposition home or self-care (01) ==
LOC: HO.HPODS 09:51
PROVIDERS: PCP Internal Medicine; Visit Provider Student in an Organized Health Care Education/Training Program
DX: M79.671 Pain in right foot (principal); M79.672 Pain in left foot; M20.11 Hallux valgus (acquired), right foot; M20.12 Hallux valgus (acquired), left foot
CPT/HCPCS: 99204

== ENCOUNTER → 2025-01-10 09:50 | Outpatient (BNVA) | payer MEDICARE, SELFPAY | PROVIDERS: PCP Internal Medicine; Visit Provider Student in an Organized Health Care Education/Training Program | DX: M20.11 Hallux valgus (acquired), right foot (principal); M20.12 Hallux valgus (acquired), left foot; M79.671 Pain in right foot; M79.672 Pain in left foot | CPT/HCPCS: 99202 ==

== ENCOUNTER 2025-01-20 09:19 | Outpatient (REF) | payer MEDICARE, SELFPAY ==
--- NOTE | ~2025-01-20 | XR_ITS ---
EXAMINATION: XR SHOULDER, LEFT CLINICAL INFORMATION: M25.512 - Pain in left shoulder COMPARISON: None available. TECHNIQUE: AP external rotation, Grashey, scapular Y, and axillary views of the left shoulder. FINDINGS: Bone alignment is normal. No fracture or dislocation. Normal glenohumeral joint. Arthritis at the acromioclavicular joint with joint space narrowing and small osteophytes. Small undersurface acromial osteophyte. Degenerative changes of the greater tuberosity. Small soft tissue calcification adjacent to the superior lateral left humeral head. XR/XR shoulder LT min 2V IMPRESSION: Degenerative changes. Electronically signed by: Carly Hubbard MD 01/20/2025 09:52 AM EST
--- NOTE | ~2025-01-20 | XR_ITS ---
EXAMINATION: XR FOOT, bilateral CLINICAL INFORMATION: M20.11 - Hallux valgus (acquired), right foot COMPARISON: None available. TECHNIQUE: AP, lateral, and oblique weightbearing views of both feet FINDINGS: Right: Mild hallux valgus deformity at the first MTP joint. Bone alignment otherwise normal. No fracture or dislocation. Degenerative changes at the first MTP joint with joint space narrowing and subchondral cystic change. Joint spaces otherwise normal. Large calcaneal spur at the Achilles tendon insertion. Left: Hallux valgus deformity at the first MTP joint. Bone alignment is otherwise normal. No fracture or dislocation. Degenerative changes at the first MTP joint with joint space narrowing, osteophyte formation and subchondral cystic change. There is adjacent soft tissue swelling. Large calcaneal spurs at the Achilles tendon insertion and plantar surface. XR/XR Foot Gumaro 3V IMPRESSION: Bilateral hallux valgus deformity and degenerative change at the first MTP joint, left greater than right. Bilateral calcaneal spurs. Electronically signed by: Carly Hubbard MD 01/20/2025 09:56 AM [facility]
--- NOTE | ~2025-01-20 | XR_ITS ---
EXAMINATION: XR HIP, RIGHT CLINICAL INFORMATION: M25.551 - Pain in right hip COMPARISON: September 14, 2020 TECHNIQUE: AP and oblique views of the right hip. FINDINGS: Mild sclerosis along the articular surface of the acetabulum. Asymmetric joint space narrowing, right coxofemoral joint. Degenerative changes in the greater trochanter. No acute fracture or dislocation. No lytic or blastic lesions. XR/XR hip RT min 2V IMPRESSION: Mild osteoarthrosis/osteoarthritis, right hip. Electronically signed by: Clint Qunin MD 01/20/2025 09:51 AM [facility]
== END 2025-01-20 09:20 | disposition home or self-care (01) ==
LOC: HO.XRAY 09:19
PROVIDERS: PCP Internal Medicine; Visit Provider Student in an Organized Health Care Education/Training Program
DX: M20.12 Hallux valgus (acquired), left foot (principal); M79.671 Pain in right foot; M79.672 Pain in left foot; M20.11 Hallux valgus (acquired), right foot; M25.512 Pain in left shoulder; M25.551 Pain in right hip
CPT/HCPCS: 73030; 73502; 73630

== ENCOUNTER → 2025-01-20 09:31 | Outpatient (BNV) | payer MEDICARE, SELFPAY | PROVIDERS: PCP Internal Medicine; Visit Provider Radiology Diagnostic Radiology | DX: M16.11 Unilateral primary osteoarthritis, right hip (principal); M20.11 Hallux valgus (acquired), right foot; M20.12 Hallux valgus (acquired), left foot; M19.012 Primary osteoarthritis, left shoulder | CPT/HCPCS: 73030; 73502; 73630 ==

== ENCOUNTER 2025-01-24 10:23 | Outpatient (AMB) | payer MEDICARE, SELFPAY ==
[2025-01-24 10:45] VITALS: BMI 30.5
--- NOTE | 2025-01-24 10:45 | MHC.OFFVIS ---
Vital Signs 01/24/25 10:45 Height 5 ft 2 in Weight 167 lb BMI 30.5 Intake Visit Reasons: f/u xrays; B/L bunions Intake Note: Julia is a 70 year old female who presents to the office today for a follow up x-rays; B/L bunions. At last visit pt was prescribed meloxicam to be taken PRN for pain and new x-rays completed. Pt states the pain has improved when she takes the meloxicam. She would like to discuss treatment plan for her fungal nails and possible athletes foot. Personnel Scheduler Required: Yes Personnel Scheduler Services: Personnel Scheduler Present Personnel Scheduler Name: [id number] Allergies No Known Allergies Allergy (Verified 01/24/25 10:47) HPI Comments Details: The patient is a 70 year old female presenting for follow-up of bilateral bunions. Patient states the meloxicam has been helping alleviate the pain associated with the bunions. Patient states she has been experiencing itching to the feet bilaterally. Patient also inquires about discoloration and increased thickness to toenails x10. She denies any new pedal injuries. She denies any other pedal concerns. [facility] Medical History (Updated 01/24/25 @ 10:55 by Maryellen Yusuf DPM) Tinea pedis Tinea unguium Hallux valgus, bilateral Bilateral foot pain Asthma DJD (degenerative joint disease) Overweight Physical exam Abnormal ultrasound of endometrium Urinary urgency Thickened endometrium Left flank pain Mass of right lower leg Varicose veins of right lower extremity with inflammation Left lower quadrant abdominal pain Multinodular goiter (nontoxic) Screening for malignant neoplasm of cervix Urinary incontinence Women's annual routine gynecological examination Heartburn Menopause GERD (gastroesophageal reflux disease) Obesity (BMI 30.0-34.9) Alopecia Varicose veins of lower extremities with inflammation Family history of breast cancer in sister Breast cancer screening, high risk patient Vitamin D deficiency Mixed dyslipidemia Hip pain, bilateral Metacarpophalangeal joint pain of right hand Shortness of breath on exertion Dyslipidemia (high LDL; low HDL) Arthritis Claudine's disease Surgical History Hx of section History of ear surgery Hx of cataract surgery Hx of shoulder surgery Family History Paternal Aunt Breast cancer Sister Breast cancer, Onset Age: 50 Father Esophageal cancer Maternal Uncle Cancer Mother Diabetes mellitus Sister Breast cancer, Onset Age: 52 Father Esophageal cancer, Onset Age: 69 Social History Household Members Other:: daughter Housing: Apartment Alcohol intake: never Patient Tobacco Use Status: Never used Tobacco e-Cigarette/Vaping Use: Never Used Second Hand Smoke Exposure: No service: No Current occupational status: retired Sexual orientation: Straight/Heterosexual Gender identity: Female Cognitive needs: No Hearing needs: No Vision needs: Yes Female Reproductive History Menstrual Age of Menarche: 15 Review of Systems Const Details: - Musculoskeletal: Reports bilateral bunions. - Integumentary: Reports significant pruritus of the feet, especially between the toes. Reports discoloration and increased thickness in all ten toenails. All systems reviewed & are unremarkable except as noted in HPI and below Physical Exam Vital Signs: BMI result Body Mass Index 30.5 Extrem Other: Bilateral lower extremity focused physical exam: Derm: Toenails noted to be slightly discolored and thickened x10. No open lesions, abrasions, or wounds noted. Skin supple and turgor WNL. No ecchymosis or discoloration noted. No clincal signs of infection noted. Vasc: DP/PT pulses palpable. CFT < 3 secs. Temp gradient warm to warm. Pedal hair absent. Mild edema noted to the medial prominences of the 1st metatarsals B/L. Neuro: Protective sensations grossly intact. MSK: Mild Pain on palpation to the 1st metatarsals B/L. Mild Pain with ROM of 1st MPJ. No crepitus or fluctuance noted. Tracking HAV noted. Non-antalgic gait unassisted noted. MMT 5/5. ROM of the hindfoot and ankles WNL. Results Reviewed Results Reviewed: Podiatry read of bilateral foot x-rays (01/20/2025): Right - HAV noted with 1st MPJ joint space narrowing. First IM angle approximately 13.7 degrees. Bone spur noted to the posterior aspect of the calcaneus. Mild hammertoe deformities noted to 2 through 5. Left - HAV noted with 1st MPJ joint space narrowing. First IM angle approximately 13.8 degrees. Bone spur noted to the posterior and plantar aspect of the calcaneus. Mild hammertoe deformities noted to 2 through 5. Bilateral foot x-rays (01/20/2025): FINDINGS: Right: Mild hallux valgus deformity at the first MTP joint. Bone alignment otherwise normal. No fracture or dislocation. Degenerative changes at the first MTP joint with joint space narrowing and subchondral cystic change. Joint spaces otherwise normal. Large calcaneal spur at the Achilles tendon insertion. Left: Hallux valgus deformity at the first MTP joint. Bone alignment is otherwise normal. No fracture or dislocation. Degenerative changes at the first MTP joint with joint space narrowing, osteophyte formation and subchondral cystic change. There is adjacent soft tissue swelling. Large calcaneal spurs at the Achilles tendon insertion and plantar surface. IMPRESSION: Bilateral hallux valgus deformity and degenerative change at the first MTP joint, left greater than right. Bilateral calcaneal spurs. Assessment & Plan Assessment & Plan (1) Tinea pedis: Code(s): B35.3 - Tinea pedis Category: Medical (2) Tinea unguium: Code(s): B35.1 - Tinea unguium Category: Medical (3) Bilateral foot pain: Code(s): M79.671 - Pain in right foot; M79.672 - Pain in left foot Category: Medical (4) Hallux valgus, bilateral: Code(s): M20.11 - Hallux valgus (acquired), right foot; M20.12 - Hallux valgus (acquired), left foot Category: Medical Plan Patient was informed and verbally consented to the use of an ambient scribe for clinic note documentation during this visit. I discussed the patient's symptoms of pruritus on her feet and discoloration and thickness of her toenails. I will prescribe Ciclopirox for her onychomycosis, and I informed her it may take up to one year of daily application to see a difference. I will also prescribe clotrimazole cream for tinea pedis and provide a refill of her meloxicam. We will have her follow up in six weeks to monitor her progress. - Prescribed Ciclopirox solution, to be applied as a kazakh to the toenails daily for onychomycosis. - Advised patient to file the nails in between applications of the topical treatment. - Prescribed a clotrimazole cream for pruritus and tinea pedis. - Refilled the prescription for meloxicam for pain management. - Advised patient to wear supportive shoe gear and to avoid barefoot walking. Advised patient to wear bunion sleeves and inserts. RTC in 6 weeks. Medications: New oxiconazole 1% 1 appl topical DAILY 60 grams 1RF B35.3 - Tinea pedis ciclopirox 8% 1 appl topical BEDTIME 6.6 mL 1RF 4 weeks B35.1 - Tinea unguium, B35.3 - Tinea pedis Refilled meloxicam 15 mg PO DAILY 30 tabs 0RF M20.11 - Hallux valgus (acquired), right foot, M20.12 - Hallux valgus (acquired), left foot, M79.671 - Pain in right foot, M79.672 - Pain in left foot Coding Level of Care Code Est Pt Level 4 (94729) Diagnoses Tinea pedis B35.3 Tinea unguium B35.1 Bilateral foot pain M79.671; M79.672 Hallux valgus, bilateral M20.11; M20.12 Time Spent (min) 33
== END 2025-01-24 11:00 | disposition home or self-care (01) ==
LOC: HO.HPODS 10:24
PROVIDERS: PCP Internal Medicine; Visit Provider Student in an Organized Health Care Education/Training Program
DX: B35.3 Tinea pedis (principal); B35.1 Tinea unguium; M79.671 Pain in right foot; M79.672 Pain in left foot; M20.11 Hallux valgus (acquired), right foot; M20.12 Hallux valgus (acquired), left foot
CPT/HCPCS: 99214

== ENCOUNTER → 2025-01-24 10:23 | Outpatient (BNVA) | payer MEDICARE, SELFPAY | PROVIDERS: PCP Internal Medicine; Visit Provider Student in an Organized Health Care Education/Training Program | DX: B35.3 Tinea pedis (principal); B35.1 Tinea unguium; M20.11 Hallux valgus (acquired), right foot; M20.12 Hallux valgus (acquired), left foot; M79.671 Pain in right foot; M79.672 Pain in left foot | CPT/HCPCS: 99212 ==